=== PATIENT | male | born 1950 | race Caucasian/White ===

== ENCOUNTER 2018-01-17 10:06 | Emergency (ER) | payer OTHER, MEDICARE ==
--- OUTSIDE RECORDS SUMMARY | 2018-01-17 10:08 | XMS REPORT | Clinical Summary ---
:1950 Author Organization [facility] Address [address] [place] [address] Care Team Providers Name Role Phone AcostaWarren vargas Primary Care Provider Allergies Active Allergy Reactions Severity Noted Date Comments Temazepam 07/25/2017 Current Medications Prescription Sig. Disp. Refills Start Date End Date Status FOLIC Take 1 tablet by Active ACID/MULTIVIT-MIN/LUTEIN mouth daily. (CENTRUM SILVER ORAL) KRILL/OM3/DHA/EPA/OM6/LIP Take 500 mg by Active /ASTX (KRILL OIL, OMEGA 3 mouth daily. AND 6, ORAL) FENOFIBRATE ORAL Take 135 mg by Active mouth daily. glipiZIDE (GLUCOTROL) 5 Take 5 mg by mouth Active MG tablet 2 (two) times a day before meals. empagliflozin (JARDIANCE) Take 25 mg by mouth Active 25 mg tablet daily. NON FORMULARY Take 1 capsule by Active mouth daily. L-Theanine metFORMIN (GLUCOPHAGE) Take 1,000 mg by Active 1,000 mg tablet mouth 2 (two) times a day with meals. nadolol (CORGARD) 40 MG Take 40 mg by mouth Active tablet daily. tamsulosin (FLOMAX) 0.4 Take 0.4 mg by Active mg capsule,extended mouth daily. 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 On anticoagulant therapy 07/26/2017 Epigastric pain 07/26/2017 Splenomegaly 07/26/2017 Thrombocytopenia 07/26/2017 Enteritis 07/25/2017 Encounters Date Type Specialty Care Team Description 09/05/2017 Procedure Pass Gastroenterology 07/25/2017 - Emergency General Internal Medicine Rivenes, Enteritis ( Primary Dx); 07/26/2017 Marquez Ibanez MD Mesenteric thrombosis Barbara Machado MD after 01/16/2017 Social History Tobacco Use Types Packs/Day Years Used Date Former Smoker Cigarettes Quit: 07/25/2009 Comments: Quit 8 years ago Alcohol Use Drinks/Week oz/Week Comments No Sex Assigned at Date Recorded Not on file Last Filed Vital Signs Vital Sign Reading Time Taken Blood Pressure 148/70 07/26/2017 8:23 PM CDT Pulse 74 07/26/2017 8:22 PM CDT Temperature 36.8 C (98.2 F) 07/26/2017 8:22 PM CDT Respiratory Rate 18 07/26/2017 8:22 PM CDT Oxygen Saturation 96% 07/26/2017 8:22 PM CDT Inhaled Oxygen Concentration - - Weight - - Height 188 cm (6' 2") 07/25/2017 11:30 PM CDT Body Mass Index - - Plan of Treatment Date Type Specialty Care Team Description 02/06/2018 Surgery Gastroenterology Gama Orozco MD EGD [id number] [address] 02/06/2018 Procedure Pass Gastroenterology 02/06/2018 Hospital [place] [address] [facility] [address] [place] [address] Health Maintenance Due Date Last Done Comments COLONOSCOPY 2002 SHINGRIX VACCINE (#1) 2002 ZOSTER VACCINE 2012 PNEUMOCOCCAL POLYSACCHARIDE VACCINE AGE 65 AND OVER 2017 PNEUMOCOCCAL-13 2017 INFLUENZA VACCINE 04/25/2018 Results POC glucose (07/26/2017 9:13 PM)Only the most recent of4 resultswithin the time period is included. Component Value Ref Range POC glucose 128 (H) 65 - 99 mg/dL Comment: Meter ID: [id number] Drug Abuse Resistance Education Officer: Tan Elena Specimen Performing Laboratory [facility] DEPARTMENT OF PATHOLOGY AND GENOMIC MEDICINE [address] [place] [address] Prothrombin mutation, factor II, by PCR (07/26/2017 6:00 PM) Component Value Ref Range Prothrombin gene mutation Normal Normal Prothrombin gene mutation See link below for PDF Lab ReportComment: Specimen Performing Laboratory Blood [facility] DEPARTMENT OF PATHOLOGY [address] [address] Factor V leiden by PCR (07/26/2017 6:00 PM) Component Value Ref Range Factor V Leiden Normal Factor V Leiden See link below for PDF Lab ReportComment: Specimen Performing Laboratory Blood [facility] PATHOLOGY [address] [address] KAYLYNN 2 mutation detection by PCR (07/26/2017 5:00 PM) Component Value Ref Range KAYLYNN-2 mutation ID Not-Detected Not-Detected KAYLYNN-2 amplification Not-Detected Not-Detected KAYLYNN 2 mutation detection, PCR See link below for PDF Lab ReportComment: Specimen Performing Laboratory Blood [facility] PATHOLOGY [address] [address] Free and total protein S (07/26/2017 5:00 PM) Component Value Ref Range Protein S Ag, free 74 62 - 160 % Protein S Ag, total 94 71 - 150 % Specimen Performing Laboratory Blood [facility] OF PATHOLOGY [address] [address] Alpha fetoprotein (07/26/2017 5:00 PM) Component Value Ref Range Alpha fetoprotein 2.2 0.0 - 8.3 ng/mL Comment: The Padma 8000 AFP immunoassay was used. Results obtained with different assay methods or kits should not be used interchangeably and may be different. Specimen Performing Laboratory Serum [facility] PATHOLOGY [address] [address] Beta-2 glycoprotein 1 Abs, IgG & IgM (07/26/2017 5:00 PM) Component Value Ref Range Beta-2 glycoprotein 1 antibody, IgG 0 0 - 20 Beta-2 glycoprotein 1 antibody, IgM 1 0 - 20 Comment: INTERPRETIVE INFORMATION: [id number] I, IgG and IgM Antibody The persistent presence of IgG and/or IgM beta 2 glycoprotein I (B2GPI) antibodies (greater than 99th percentile) is a laboratory criterion for the diagnosis of antiphospholipid syndrome (APS). Persistence is defined as moderate or high levels of IgG and/or IgM B2GPI antibodies detected in two or more specimens drawn at least 12 weeks apart (J Throm Haemost. 2006;4:295-306). B2GPI results greater than 20 SGU (IgG) and/or SMU (IgM) are considered positive based on the cutoff values established for this test. International reference materials and consensus units for anti-B2GPI antibodies have not been established (Clin Jessica Acta. 2012;413(1-2):358-60; Arthritis Rheum. 2012;64(1):1-10.). Strong clinical correlation is recommended for a diagnosis of APS. Low positive IgG and IgM B2GPI antibody levels should be interpreted in light of APS-specific clinical manifestations and/or other criteria phospholipid antibody tests. Performed by [facility], [address] [place] [address] [email or web address], Edilson Winslow MD - Lab. Director Specimen Performing Laboratory [facility] [address] [place] [address] Functional protein S (07/26/2017 5:00 PM) Component Value Ref Range Functional protein S 55 (L) 74 - 160 % Comment: Functional Protein S performed.If result is decreased Total and Free Protein S Antigen will be performed. Specimen Performing Laboratory Blood [facility] DEPARTMENT OF PATHOLOGY AND GENOMIC MEDICINE [address] [place] [address] Functional protein C (07/26/2017 5:00 PM) Component Value Ref Range Functional protein C 61 (L) 70 - 165 % Specimen Performing Laboratory Blood [facility] DEPARTMENT OF PATHOLOGY AND GENOMIC MEDICINE [address] [place] [address] Lupus anticoagulant panel (07/26/2017 5:00 PM) Component Value Ref Range Prothrombin time 15.8 (H) 12.0 - 15.0 sec INR 1.2 Comment: The International Normalized Ratio (INR) is a therapeutic monitoring tool for patients who are stable on oral anticoagulant therapy. An INR of 2.0-3.0 is suggested for deep vein thrombosis/pulmonary embolism. PTT 38.3 (H) 23.0 - 36.0 sec Comment: PTT therapeutic range for unfractionated heparin is 61.0-112.0 seconds which corresponds to Anti-Xa 0.3-0.7 U/ml. PTT lupus anticoagulant 36.8 27.0 - 38.0 sec Comment: Lupus anticoagulant (LA) panel consists of PT, PTT, PTT-LA, and DRVVT. If the PTT-LA is above the normal range, the hexagonal phospholipid will be performed. If the DRVVT is above the normal range, the DRVVC confirmatory test will be performed. A normal result for both the DRVVT and the PTT-LA means the patient is negative for lupus anticoagulant. The patient is considered positive for lupus anticoagulant if either the Ratio SCR/CONF or the hexagonal phospholipid is high (positive) on two occassions at least six weeks apart. Clinical confirmation is also required for diagnosis. DRVVT 30.7 29.0 - 46.0 sec Specimen Performing Laboratory Blood [facility] DEPARTMENT OF PATHOLOGY AND GENOMIC MEDICINE [id number] [place] [address] Cardiolipin antibodies (07/26/2017 5:00 PM) Component Value Ref Range Cardiolipin IgG 1 0 - 14 GPL Comment: Negative=<15 GPL Indeterminate=15-20 GPL Positive=>20 GPL Cardiolipin IgM 6 0 - 12 MPL Comment: Negative=<13 MPL Indeterminate=13-20 MPL Positive=>20 MPL Specimen Performing Laboratory Blood [facility] DEPARTMENT OF PATHOLOGY AND GENOMIC MEDICINE [address] [place] [address] Antithrombin III level (07/26/2017 5:00 PM) Component Value Ref Range Antithrombin III 64 (L) 80 - 130 % Comment: Low Protein S, Protein C Activity, and Antithrombin Activity consistent with ongoing thrombosis. Repeat in 1 - 2 months. Reviewed by Specimen Performing Laboratory Blood [facility] DEPARTMENT OF PATHOLOGY AND GENOMIC MEDICINE [address] [place] [address] Estimated GFR (07/26/2017 5:30 AM)Only the most recent of2 resultswithin the time period is included. Component Value Ref Range GFR Non Af Amer >90 mL/min/1.73 m2 GFR Af Amer >90 mL/min/1.73 m2 Comment: Chronic kidney disease: <60 mL/min/1.73m2 Kidney failure: <15 mL/min/1.73m2 The estimated GFR is calculated from the IDMS-traceable Modification of Diet in Renal Disease Equation. The accuracy of the calculation is poor when the creatinine is normal. Calculated values >90 mL/min/1.73m2 are not reported. This equation has not been validated in children (<18 years), women, the elderly (>70 years), or ethnic groups other than Caucasians and Americans. Specimen Performing Laboratory Plasma specimen [facility] DEPARTMENT OF PATHOLOGY AND [address] [place] [address] Troponin (07/26/2017 5:30 AM)Only the most recent of3 resultswithin the time period is included. Component Value Ref Range Troponin <0.30 0.00 - 0.30 ng/mL Comment: 0.11 - 1.49 ng/mlMay indicate increased risk of acute coronary syndrome. >=1.5 ng/mlConsistent with acute myocardial infarction. The diagnostic value of a single normal or non-diagnostic result is questionable.Serial samples at 2-6 hour intervals are required to rule out acute myocardial injury. Specimen Performing Laboratory Plasma specimen [facility] PATHOLOGY AND [address] [place] [address] CBC with platelet and differential (07/26/2017 5:30 AM)Only the most recent of2 resultswithin the time period is included. Component Value Ref Range WBC 3.9 (L) 4.5 - 11.0 k/uL RBC 4.35 (L) 4.40 - 6.00 m/uL HGB 14.1 14.0 - 18.0 g/dL HCT 40.6 (L) 41.0 - 51.0 % MCV 93.3 82.0 - 100.0 fL MCH 32.4 27.0 - 34.0 pg MCHC 34.7 31.0 - 37.0 g/dL RDW - SD 49.9 37.0 - 55.0 fL MPV 10.0 6.9 - 11.0 fL Platelet count 103 (L) 150 - 400 K/uL Nucleated RBC 0.00 /100 WBC Neutrophils 42.6 39.0 - 69.0 % Lymphocytes 40.3 25.0 - 45.0 % Monocytes 10.7 (H) 0.0 - 10.0 % Eosinophils 5.1 (H) 0.0 - 5.0 % Basophils 0.8 0.0 - 1.0 % Immature granulocytes 0.5 0.0 - 1.0 % Specimen Performing Laboratory Blood [facility] DEPARTMENT OF PATHOLOGY AND [address] [place] [address] Comprehensive metabolic panel (07/26/2017 5:30 AM)Only the most recent of2 resultswithin the time period is included. Component Value Ref Range Sodium 140 135 - 148 mEq/L Potassium 3.9 3.5 - 5.0 mEq/L Chloride 102 98 - 112 mEq/L CO2 27 24 - 31 mEq/L Anion gap 11 7 - 15 mEq/L Comment: Starting from December , anion gap calculation no longer incorporates potassium. Please note the change. BUN 13 8 - 23 mg/dL Creatinine 0.7 0.7 - 1.2 mg/dL Glucose 141 (H) 65 - 99 mg/dL Calcium 8.9 8.8 - 10.2 mg/dL Protein 6.5 6.3 - 8.3 g/dL Albumin 3.7 3.5 - 5.0 g/dL A/G ratio 1.3 0.7 - 3.8 Alkaline phosphatase 65 40 - 129 U/L AST 30 10 - 50 U/L ALT 29 5 - 50 U/L Total bilirubin 0.9 0.2 - 1.2 mg/dL Specimen Performing Laboratory Plasma specimen [facility] DEPARTMENT OF PATHOLOGY AND [address] [address] Phosphorus level (07/26/2017 1:13 AM) Component Value Ref Range Phosphorus 3.7 2.4 - 4.5 mg/dL Specimen Performing Laboratory Plasma specimen [facility] DEPARTMENT OF PATHOLOGY AND GENOMIC [address] [address] Magnesium level (07/26/2017 1:13 AM) Component Value Ref Range Magnesium 2.1 1.6 - 2.4 mg/dL Specimen Performing Laboratory Plasma specimen [facility] DEPARTMENT OF PATHOLOGY AND GENOMIC [address] [address] Ionized calcium (07/26/2017 1:13 AM) Component Value Ref Range pH 7.40 Ionized calcium 1.09 (L) 1.11 - 1.32 mmol/L Specimen Performing Laboratory Plasma specimen [facility] DEPARTMENT PATHOLOGY AND [facility] MEDICINE [address] [place] [address] Occult blood, stool (07/25/2017 7:46 PM) Component Value Ref Range Occult blood, stool Negative for occult blood. Comment: Specimen Information Specimen Source: Rectal Swab Specimen Site: Nonpreserved Specimen Performing Laboratory Rectal swab - Nonpreserved [facility] DEPARTMENT OF PATHOLOGY AND GENOMIC MEDICINE [address] [place] [address] Abdomen Pelvis W Contrast (07/25/2017 7:09 PM) Specimen Performing Laboratory [facility] [address] [facility] [place] [address] Narrative EXAMINATION:CT ABDOMEN PELVIS W CONTRAST CLINICAL HISTORY:generalized abdominal pain TECHNIQUE: Multiple axial images of the abdomen and pelvis were obtained following intravenous administration of iodinated contrast. Sagittal and coronal computerized reformatted images were also obtained. Scan was performed using radiation dose reduction techniques. COMPARISON:None FINDINGS: The liver cirrhotic. Parenchymal evaluation for tumor is significantly limited by single phase technique. Portal hypertensive changes include splenomegaly, paraesophageal/esophageal varices, and recanalized periumbilical vein. There is nonocclusive thrombosis of the SMV and main portal vein. Clot extends into the intrahepatic segments of the portal vein. There is hazy stranding noted in the small bowel mesentery. A short segment of moderate thickening is noted in the left mid abdomen (series 2 image 86). Colon demonstrates no significant mural thickening. Mesenteric arteries are patent. Diffuse diverticulosis in the colon without evidence of diverticulitis. Appendix is noninflamed. There is minimal ascites. No fluid collection. Prostate mildly enlarged. There are cysts in both kidneys. No hydronephrosis. Severe vascular calcifications. Infrarenal aorta is minimally ectatic. Status post cholecystectomy. No biliary dilatation. Pancreas is atrophic. IMPRESSION: 1.Liver cirrhosis and portal hypertension. 2.Nonocclusive but extensive SMV and portal vein thrombosis. 3.Mesenteric infiltration and short segment of small bowel thickening are presumably sequelae of mesenteric venous thrombosis. Other causes of enteritis , such as infectious, is not excluded but less likely. 4.Severe vascular disease. Grossly patent mesenteric arteries. [facility]-[id number] Procedure Note Interface, Radiology Results Incoming - 07/25/2017 7:21 PM CDT EXAMINATION: CT ABDOMEN PELVIS W CONTRAST CLINICAL HISTORY: generalized abdominal pain TECHNIQUE: Multiple axial images of the abdomen and pelvis were obtained following intravenous administration of iodinated contrast. Sagittal and coronal computerized reformatted images were also obtained. Scan was performed using radiation dose reduction techniques. COMPARISON: None FINDINGS: The liver cirrhotic. Parenchymal evaluation for tumor is significantly limited by single phase technique. Portal hypertensive changes include splenomegaly, paraesophageal/esophageal varices, and recanalized periumbilical vein. There is nonocclusive thrombosis of the SMV and main portal vein. Clot extends into the intrahepatic segments of the portal vein. There is hazy stranding noted in the small bowel mesentery. A short segment of moderate thickening is noted in the left mid abdomen (series 2 image 86). Colon demonstrates no significant mural thickening. Mesenteric arteries are patent. Diffuse diverticulosis in the colon without evidence of diverticulitis. Appendix is noninflamed. There is minimal ascites. No fluid collection. Prostate mildly enlarged. There are cysts in both kidneys. No hydronephrosis. Severe vascular calcifications. Infrarenal aorta is minimally ectatic. Status post cholecystectomy. No biliary dilatation. Pancreas is atrophic. IMPRESSION: 1. Liver cirrhosis and portal hypertension. 2. Nonocclusive but extensive SMV and portal vein thrombosis. 3. Mesenteric infiltration and short segment of small bowel thickening are presumably sequelae of mesenteric venous thrombosis. Other causes of enteritis, such as infectious, is not excluded but less likely. 4. Severe vascular disease. Grossly patent mesenteric arteries. [facility]-[id number] XR Chest 2 Vw (07/25/2017 6:23 PM) [facility]imen [facility] [address] [place] [address] Narrative Examination:XR CHEST 2 VW Clinical History: right sided posterior chest pain Comparison: None. Technique: Frontal and lateral views of the chest Impression: Lungs appear slightly hyperinflated. No focal consolidation or pleural effusion. Heart size and pulmonary vascularity grossly normal. Numerous old fracture deformities are seen in bilateral ribs and clavicles. [facility]-[id number] Procedure Note Interface, Radiology Results Incoming - 07/25/2017 6:27 PM CDT Examination: XR CHEST 2 VW Clinical History: right sided posterior chest pain Comparison: None. Technique: Frontal and lateral views of the chest Impression: Lungs appear slightly hyperinflated. No focal consolidation or pleural effusion. Heart size and pulmonary vascularity grossly normal. Numerous old fracture deformities are seen in bilateral ribs and clavicles. [facility]-[id number] Urinalysis screen and microscopy, with reflex to culture (07/25/2017 5:55 PM) Component Value Ref Range Specimen site Clean catch Color, UA Yellow Appearance, UA Clear Specific gravity, UA 1.036 (H) 1.001 - 1.030 pH, UA 6.0 5.0 - 9.0 Protein, UA Negative Negative Glucose, UA 3+ (A) Negative Ketones, UA Trace (A) Negative Bilirubin, UA Negative Negative Blood, UA Moderate (A) Negative Nitrite, UA Negative Negative Urobilinogen, UA 2.0 (A) <2.0 E.U./dL Leukocyte esterase, UA Negative Negative WBC, UA 1 0 - 1 /HPF RBC, UA 6 (H) 0 - 1 /HPF Bacteria, UA None seen None seen Yeast, UA None seen Yeast with pseudohyphae, UA None seen Specimen Performing Laboratory Urine [facility] DEPARTMENT OF PATHOLOGY AND [address] [address] Urine culture (07/25/2017 5:55 PM) Component Value Ref Range Urine culture SEE COMMENTComment: Bacteriuria screen negative. Specimen Performing Laboratory [facility] PATHOLOGY [place] [id number] ECG 12 lead (07/25/2017 5:47 PM) Component Value Ref Range Ventricular rate 69 Atrial rate 69 ME interval 176 QRSD interval 142 QT interval 460 QTC interval 492 P axis 1 67 QRS axis 1 262 T wave axis 53 EKG impression Normal sinus rhythm-Right bundle branch block-Abnormal ECG-In automated comparison with ECG of 25-JUL-2017 17:47,-No significant change was found- Specimen Performing Laboratory [facility] [address] [place] [address] Partial thromboplastin time, activated (07/25/2017 5:42 PM) Component Value Ref Range PTT 27.5 23.0 - 36.0 sec Comment: PTT therapeutic range for unfractionated heparin is 61.0-112.0 seconds which corresponds to Anti-Xa 0.3-0.7 U/ml. Specimen Performing Laboratory Blood [facility] DEPARTMENT OF PATHOLOGY AND [facility] MEDICINE [address] [place] [address] Prothrombin time with INR (07/25/2017 5:42 PM) Component Value Ref Range Prothrombin time 15.4 (H) 12.0 - 15.0 sec INR 1.2 Comment: The International Normalized Ratio (INR) is a therapeutic monitoring tool for patients who are stable on oral anticoagulant therapy. An INR of 2.0-3.0 is suggested for deep vein thrombosis/pulmonary embolism. Specimen Performing Laboratory Blood [facility] DEPARTMENT OF PATHOLOGY AND [address] [address] B natriuretic peptide (07/25/2017 5:42 PM) Component Value Ref Range BNP 38 0 - 100 pg/mL Specimen Performing Laboratory Blood [facility] DEPARTMENT OF PATHOLOGY AND GENOMIC MEDICINE [address] [place] [address] Lipase level (07/25/2017 5:42 PM) Component Value Ref Range Lipase 25 13 - 60 U/L Specimen Performing Laboratory Plasma specimen [facility] DEPARTMENT OF PATHOLOGY AND GENOMIC MEDICINE [address] [place] [address] Creatine kinase, total (CPK) (07/25/2017 5:42 PM) Component Value Ref Range Creatine kinase 52 39 - 308 U/L Specimen Performing Laboratory Plasma specimen [facility] DEPARTMENT OF PATHOLOGY AND GENOMIC MEDICINE [address] [place] [address] Amylase level (07/25/2017 5:42 PM) Component Value Ref Range Amylase 19 13 - 73 U/L Specimen Performing Laboratory Plasma specimen [facility] DEPARTMENT OF PATHOLOGY AND GENOMIC MEDICINE [address] [place] [address] after 01/16/2017 Insurance Payer Benefit Plan / Group Subscriber ID Type Phone Address [facility] x[facility]xxx Exchange Home: [phone] [place] [phone]
--- OUTSIDE RECORDS SUMMARY | 2018-01-17 10:09 | XMS REPORT | Clinical Summary ---
:1950 Author Organization [facility] Address [address] [place] [address] Phone Care Team Providers Name Role Phone Unavailable Primary Care Provider Unavailable Allergies Active Allergy Reactions Severity Noted Date Comments Temazepam Other (See Comments) High 07/27/2017 Severe agitation. Current Medications Prescription Sig. Disp. Refills Start End Date Status Date losartan (COZAAR) Take 50 mg by Active 50 MG tablet mouth daily. metFORMIN Take 1,000 mg by Active (GLUCOPHAGE) 1000 mouth 2 (two) MG tablet times daily with breakfast and dinner. glipiZIDE Take 5 mg by mouth Active (GLUCOTROL) 5 MG 2 (two) times tablet daily before meals. fenofibric acid, Take 135 mg by Active choline, 135 mg mouth daily. capsule tamsulosin Take 0.4 mg by Active (FLOMAX) 0.4 mg mouth daily. Cp24 24 hr capsule nadolol (CORGARD) Take 40 mg by Active 40 MG tablet mouth daily. enoxaparin Inject 0.8 mLs 20 Syringe 0 Active (LOVENOX) 120 (120 mg total) 7 mg/0.8 mL Syrg subcutaneously every 12 (twelve) hours. apixaban (ELIQUIS) Take 5 mg by mouth Active 5 mg Tab tablet 2 (two) times daily. krill oil 500 mg Take by mouth. Active Cap empagliflozin Take 25 mg by Active (JARDIANCE) 25 mg mouth daily. tablet Missing or L- Theanine 100mg Active Non-Formulary . Medication ranitidine Take 150 mg by Active (ZANTAC) 150 MG mouth 2 (two) tablet times daily. TURMERIC, BULK, 1,500 mg by Active MISC Miscellaneous route. Missing or Take 1 tablet by 07/29/20 Discontinued Non-Formulary mouth daily 17 Medication Centrum Silver 50 . Missing or Take 500 mg by 07/29/20 Discontinued Non-Formulary mouth daily Krill 17 Medication oil . Missing or Take 25 mg by 07/29/20 Discontinued Non-Formulary mouth daily 17 Medication Jardiance . Missing or Take 1 capsule by 07/29/20 Discontinued Non-Formulary mouth daily L. 17 Medication Theanine . Hospital, Clinic, or Other Ordered Dose Route Frequency Start Date End Date Status Facility Administered Medication iopamidol (ISOVUE-370) 76 % 100 mL IV ONCE PRN 12/05/2017 12/05/2017 Ended injection 100 mL Active Problems Problem Noted Date Other cirrhosis of liver 11/06/2017 Last Assessment & Plan: Cirrhosis diagnosed based on imaging, labs and clinical complications. Most likely secondary to fatty liver with metabolic syndrome. A comprehensive work up is planned to additional etiologies. Cirrhosis education was completed with literature provided. Na MELD 8 , 07/2017. Early for liver transplant evaluation. Of note, the status of the portal and splenic vein thrombosis will be critical since these vessels are required for liver transplant. Screening for malignant neoplasm 11/06/2017 Last Assessment & Plan: Cirrhosis, regardless of etiology, is a risk factor for development of hepatocellular carcinoma. The annual incidence of HCC varies from 1.5-7%. Thus, we recommend surveillance for HCC be performed usin g contrast MRI or CT imaging and alphafetoprotein every 6 months. Immunity status testing 11/06/2017 Last Assessment & Plan: Serological tests will be completed to determine the presence of immunity to hepatitis A and B. If the patient does not have adequate immunity, we would recommend administration of appropriate vaccinati on as per CDC guidelines by the primary care provider. Portal hypertension (HCC) 11/06/2017 Last Assessment & Plan: Portal hypertension evidenced by varices and hypersplenism. Secondary esophageal varices without bleeding (HCC) 11/06/2017 Metabolic syndrome 11/06/2017 Last Assessment & Plan: The patient meets criteria for metabolic syndrome with DM, HTN, suspected HLD and obesity. Control of the risk factors is critical to improve the hepatic steatosis that likely has played a role in the development of cirrhosis. Exercise and diet modification with literature provided. 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 Subsequent hypercoaguable work up done with Hematology and anticoagulation currently underway. We will need clarification of the status of patency of these vessels with imaging. MRI with and without gadolinium recommended at this time for clarification. Secondary esophageal varices with bleeding 11/06/2017 Last Assessment & Plan: Initial decompensating event when he presented with acute UGIB found to be secondary to esophageal varices requiring EVL. Last EGD 08/2017 also required EVL. Follow up due at this time with local GI physician, Dr Gama Orozco. Enteritis 07/27/2017 Gastroenteritis 07/27/2017 Encounters Date Type Specialty Care Team Description 12/12/2017 Office Visit Hepatology Benedict Gutierres Other cirrhosis of MD Geov[place] liver (HCC) (Primary Dx);Portal hypertension (HCC);Portal vein thrombosis;Metabolic syndrome 12/05/2017 Hospital Encounter Radiology Benedict Gutierres Canceled (Patient) MD Geovanna 12/05/2017 Procedure visit Radiology Benedict Gutierres PVT (portal vein MD Geovanna thrombosis) 12/04/2017 Outside Orders Benedict Gutierres MD 11/14/2017 Abstract HepatAnalia Robles RN 11/08/2017 Abstract HepatAnalia Robles RN 11/07/2017 Abstract HepatAnalia Robles RN 11/06/2017 Office Visit Benedict Clifford MD liver (Primary Dx);Screening for malignant neoplasm;Immunity status testing;Portal hypertension (HCC);Secondary esophageal varices without bleeding (HCC);Metabolic syndrome;PVT (portal vein thrombosis);Secondar y esophageal varices with bleeding 10/12/2017 Telephone Hepatology Casie Torre Appointment 08/23/2017 Telephone Hepatology Casie Torre Appointment 07/26/2017 - Hospital Encounter General Internal Korey Taylor, 07/29/2017 Medicine MD Leonard, Anderson Hansen MD 07/26/2017 Orders Only Mahad Rivera, ESTEBAN after 01/16/2017 Immunizations Name Dates Previously Given Next Due Hepatitis A 11/26/2017 Hepatitis B 11/26/2017 Influenza Three-TIV PF 5+ YR 07/27/2017 Pneumococcal Polysaccharide (Pneumovax) 07/27/2017 Family History Medical History Relation Name Comments Diabetes Father Heart disease Father Diabetes Mother Relation Name Status Comments Father Mother Social History Tobacco Use Types Packs/Day Years Used Date Former Smoker Quit: 11/06/2011 Smokeless Tobacco: Current User Alcohol Use Drinks/Week oz/Week Comments No Sex Assigned at Date Recorded Not on file Last Filed Vital Signs Vital Sign Reading Time Taken Blood Pressure 115/67 11/06/2017 10:49 AM [employer] Pulse 67 11/06/2017 10:49 AM [employer] Temperature 36.6 C (97.8 F) 11/06/2017 10:49 AM [employer] Respiratory Rate 20 11/06/2017 10:49 AM [employer] Oxygen Saturation 97% 11/06/2017 10:49 AM [employer] Inhaled Oxygen Concentration - - Weight 110.5 kg (243 lb 9.6 oz) 12/12/2017 2:08 PM CDT Height 188 cm (6' 2") 11/06/2017 10:49 AM [employer] Body Mass Index 31.28 12/12/2017 2:08 PM CDT Plan of Treatment Date Type Specialty Care Team Description 06/15/2018 Office Visit Hepatology Benedict Gutierres MD [address] [facility] [address] [place] [address] Resource, [facility] Health Maintenance Due Date Last Done Comments INFLUENZA VACCINE 06/25/2018 07/27/[address] abdomen with/without contrast (12/05/2017 10:35 AM) Specimen Performing Laboratory [facility] Narrative FINAL REPORT HISTORY : cirrhosis with PVT/SMV partial thrombosis on blood thinners,need triple phase liver protocol Technique: Initially, noncontrast images of the abdomen were obtained. This was followed by multiple axial images of the abdomen with the administration of IV contrast only from the lung bases to the periumbilical region. Delayed images were also obtained. This exam was performed according to our departmental dose optimization program which includes automated exposure control, adjustment of the mA and/or kV according to patient size and/or use of iterative reconstructive technique. COMPARISON : Outside CT dated 07/25/2017 COMMENT : There is some bibasilar linear subsegmental atelectasis versus scarring. The visualized adrenal glands, pancreas, stomach and duodenum are within normal limits. There is hepatic cirrhosis. No suspicious enhancing hepatic lesions are seen. There is atherosclerotic vascular disease. There are several bilateral renal cysts and too small to characterize renal hypodensities but which likely represent cysts. The largest cyst is seen arising from the left renal upper pole measuring up to 3.6 cm. There is splenomegaly. The patient is status post cholecystectomy. There is no abdominal or retroperitoneal lymphadenopathy. Multilevel degenerative disc changes of the visualized thoracolumbar spine are seen. There is no free fluid or free air in the abdomen. No findings of any bowel obstruction. The visualized portions of the small bowel are within normal limits. There is diverticulosis of the visualized portions of the large bowel. There is no splenic or superior mesenteric venous thrombosis. There is a small amount of partially occlusive thrombus in the main portal vein. Comparison with the prior examination is limited due to the phase of image acquisition on the prior CT scan. However, grossly, the thrombus appears diminished as compared to the prior exam. The thrombus appears to extend into the left portal vein. Impression: 1. Hepatic cirrhosis. No suspicious enhancing hepatic lesions are seen. 2. Small amount of partially occlusive thrombus in the main portal vein, apparently diminished as compared to the prior exam. Please see above. 3. Splenomegaly with findings of portal hypertension. 4. Colonic diverticulosis. Signed: Nina Marie MD Report Verified Date/Time:12/05/2017 10:58:51 Reading Location: [facility] Diagnostic Imaging Reading Room - [place] [id number] Procedure Note Interface, External Ris In - 12/05/2017 11:01 AM CDT FINAL REPORT HISTORY : cirrhosis with PVT/SMV partial thrombosis on blood thinners, need triple phase liver protocol Technique: Initially, noncontrast images of the abdomen were obtained. This was followed by multiple axial images of the abdomen with the administration of IV contrast only from the lung bases to the periumbilical region. Delayed images were also obtained. This exam was performed according to our departmental dose optimization program which includes automated exposure control, adjustment of the mA and/or kV according to patient size and/or use of iterative reconstructive technique. COMPARISON : Outside CT dated 07/25/2017 COMMENT : There is some bibasilar linear subsegmental atelectasis versus scarring. The visualized adrenal glands, pancreas, stomach and duodenum are within normal limits. There is hepatic cirrhosis. No suspicious enhancing hepatic lesions are seen. There is atherosclerotic vascular disease. There are several bilateral renal cysts and too small to characterize renal hypodensities but which likely represent cysts. The largest cyst is seen arising from the left renal upper pole measuring up to 3.6 cm. There is splenomegaly. The patient is status post cholecystectomy. There is no abdominal or retroperitoneal lymphadenopathy. Multilevel degenerative disc changes of the visualized thoracolumbar spine are seen. There is no free fluid or free air in the abdomen. No findings of any bowel obstruction. The visualized portions of the small bowel are within normal limits. There is diverticulosis of the visualized portions of the large bowel. There is no splenic or superior mesenteric venous thrombosis. There is a small amount of partially occlusive thrombus in the main portal vein. Comparison with the prior examination is limited due to the phase of image acquisition on the prior CT scan. However, grossly, the thrombus appears diminished as compared to the prior exam. The thrombus appears to extend into the left portal vein. Impression: 1. Hepatic cirrhosis. No suspicious enhancing hepatic lesions are seen. 2. Small amount of partially occlusive thrombus in the main portal vein, apparently diminished as compared to the prior exam. Please see above. 3. Splenomegaly with findings of portal hypertension. 4. Colonic diverticulosis. Signed: Nina Marie MD Report Verified Date/Time: 12/05/2017 10:58:51 Reading Location: [facility] Diagnostic Imaging Reading Room - [place] [address] -Creatinine (12/05/2017 10:20 AM) Component Value Ref Range POC-Creatinine 0.7Comment: TESTED AT [facility]-[address] 0.6 - 1.3 mg/dL [facility] [address] POC-EGFR 113 mL/min/1.73M2 Specimen Performing Laboratory Blood [address] [address] Hepatitis A antibody, IgG (11/06/2017 1:03 PM) Component Value Ref Range Hep A IgG Nonreactive Nonreactive Specimen Performing Laboratory Blood [address] [address] Mitochondrial Antibodies, M2 (11/06/2017 1:03 PM) Component Value Ref Range Mitochondria M2 Ab <20.0 See Note: U Comment: Reference Range: NEGATIVE:< OR=20.0 EQUIVOCAL: 20.1-24.9 POSITIVE:> OR=25.0 Specimen Performing Laboratory Blood [facility] [address] [place] [address] Narrative Performing Lab [facility] [address] [place] [address] Geovanna Rey MD, PhD Iron, TIBC, % sat. (without ferritin) (11/06/2017 1:03 PM) Component Value Ref Range Iron 66 40 - 160 ug/dL TIBC 300 250 - 450 ug/dL Iron % Saturation 22 20 - 55 % Specimen Performing Laboratory Blood [facility] [address] [place] [address] CBC with platelet count + automated diff (11/06/2017 1:03 PM)Only the most recent of4 resultswithin the time period is included. Component Value Ref Range WBC 4.5 3.5 - 10.5 K/L RBC 4.54 (L) 4.63 - 6.08 M/L Hemoglobin 14.9 13.7 - 17.5 GM/DL Hematocrit 44.0 40.1 - 51.0 % MCV 96.9 (H) 79.0 - 92.2 fL MCH 32.8 (H) 25.7 - 32.2 pg MCHC 33.9 32.3 - 36.5 GM/DL RDW 14.0 11.6 - 14.4 % Platelets 115 (L) 150 - 450 K/CU MM MPV 10.8 9.4 - 12.4 fL nRBC 0 0 - 0 /100 WBC % Neutros 52 % % Lymphs 32 % % Monos 10 % % Eos 4 % % Baso 1 % # Neutros 2.35 1.78 - 5.38 K/L # Lymphs 1.45 1.32 - 3.57 K/L # Monos 0.46 0.30 - 0.82 K/L # Eos 0.20 0.04 - 0.54 K/L # Baso 0.03 0.01 - 0.08 K/L Immature Granulocytes-Relative 1 0 - 1 % Specimen Performing Laboratory Blood [address] [address] Hepatitis C antibody (11/06/2017 1:03 PM) Component Value Ref Range Hepatitis C Ab Nonreactive Nonreactive Specimen Performing Laboratory Blood [address] [address] Actin (Smooth Muscle) Antibody, IgG (11/06/2017 1:03 PM) Component Value Ref Range Anti-Smooth Muscle Ab <20 See Note: U Comment: Reference Range: <20 NEGATIVE > OR=20 POSITIVE Antibodies recognizing actin are the main component of smooth muscle antibodies associated with autoimmune liver disease. Actin antibodies are found in approximately 75% of patients with autoimmune hepatitis (AIH) type 1, approximately 65% of patients with autoimmune cholangitis, approximately 30% of patients with primary biliary cirrhosis, and approximately 2% of healthy people. High values are closely correlated with AIH type 1. Specimen Performing Laboratory Blood [facility] [address] [address] Narrative Performing Lab [facility] [address] [address] Geovanna Rey MD, PhD [id number] (11/06/2017 1:03 PM) Component Value Ref Range A-1 Antitrypsin 136.30Comment: Specimen slightly hemolyzed 90.00 - 200.00 mg/ dL Specimen Performing Laboratory Blood [address] [address] ROBERT Titer & Pattern (11/06/2017 1:03 PM) Component Value Ref Range ROBERT Titer 1:160 ROBERT Pattern Homogeneous Specimen Performing Laboratory Blood [address] [address] Ceruloplasmin (11/06/2017 1:03 PM) Component Value Ref Range Ceruloplasmin 25 18 - 36 mg/dL Comment: Adults:Males: 18-36 mg/dL Females: 18-53 mg/dL Pediatrics:Males (mg/dL)Females (mg/dL) 0-30 Days 8-25 3-28 31 Days-11 Month [id number] 1-3 [id number] 4-6 [id number] 7-9 [id number] 10-12 [id number] 13-15 [id number] 16-18 [id number] The pediatric ranges are derived from the following criteria: Enrique SJ, Opal KEE, Fadia J et al Pediatric reference ranges for Hlzx-1-Dkpftlapsavmz and ceruloplasmin. Clin. Chem 1997; 43:S1999 Pediatric Reference Ranges, 2nd., [place] Enriqueet al. editors. [employer], [place], [place] 1997. Specimen Performing Laboratory Blood [facility] [address] [place] [address] Narrative Performing Lab *[facility], [address] [place] [id number] Geovanna Rey MD, PhD Alpha fetoprotein (AFP), tumor marker (11/06/2017 1:03 PM) Component Value Ref Range Alpha-Fetoprotein <2.0 <10.0 ng/mL Specimen Performing Laboratory Blood [address] [address] Hepatitis B core antibody, total (11/06/2017 1:03 PM) Component Value Ref Range Hep B Core Total Ab Nonreactive Nonreactive Specimen Performing Laboratory Blood [address] [address] Hepatitis B surface antibody (11/06/2017 1:03 PM) Component Value Ref Range Hep B S Ab <8.0 <8.0 mIU/mL Specimen Performing Laboratory Blood [address] [address] Hepatitis B surface antigen (11/06/2017 1:03 PM) Component Value Ref Range hepatitis B Surface Ag Nonreactive Nonreactive Specimen Performing Laboratory Blood [address] [address] Pro-time/INR (11/06/2017 1:03 PM) Component Value Ref Range Protime 16.7 (H) 11.7 - 14.7 seconds INR 1.4 <=5.9 Specimen Performing Laboratory Blood [address] [address] Narrative RECOMMENDED COUMADIN/WARFARIN INR THERAPY RANGES STANDARD DOSE: 2.0 - 3.0 Includes: PROPHYLAXIS for venous thrombosis, systemic embolization; TREATMENT for venous thrombosis and/or pulmonary embolus. HIGH RISK: Target INR is 2.5-3.5 for patients with mechanical heart valves. CBC with platelet count + automated diff (11/06/2017 1:03 PM)Only the most recent of4 resultswithin the time period is included. Specimen Performing Laboratory Blood [facility] Narrative The following orders were created for panel order CBC with platelet count + automated diff. Procedure Abnormality Status --------- ------ CBC with platelet count ...[[id number]]AbnormalFinal result Please view results for these tests on the individual orders. Anti-Nuclear Antibody (ROBERT) (11/06/2017 1:03 PM) Component Value Ref Range ROBERT Positive (A) Negative Specimen Performing Laboratory [address] [address] Ferritin (11/06/2017 1:03 PM) Component Value Ref Range Ferritin 38 5 - 275 ng/mL Specimen Performing Laboratory [address] [address] Bilirubin, direct (11/06/2017 1:03 PM) Component Value Ref Range Bilirubin, Direct 0.4Comment: Specimen slightly hemolyzed 0.1 - 0.5 mg/dL Specimen Performing Laboratory Blood [address] [address] Comprehensive Metabolic Panel (11/06/2017 1:03 PM)Only the most recent of2 resultswithin the time period is included. Component Value Ref Range Protein, Total 7.2Comment: Specimen slightly hemolyzed 6.0 - 8.3 gm/dL Albumin 3.6Comment: Specimen slightly hemolyzed 3.5 - 5.0 g/dL Alkaline Phosphatase 108 40 - 150 U/L Total Bilirubin 1.2Comment: Specimen slightly hemolyzed 0.2 - 1.2 mg/dL Sodium 139 136 - 145 meq/L Potassium 4.1Comment: Specimen slightly hemolyzed 3.5 - 5.1 meq/L Chloride 104 98 - 107 meq/L CO2 23 22 - 29 meq/L BUN 13 7 - 21 mg/dL Creatinine 0.71Comment: Specimen slightly hemolyzed 0.57 - 1.25 mg/dL Glucose 115 (H) 70 - 105 mg/dL Calcium 9.0 8.4 - 10.2 mg/dL AST 51 (H)Comment: Specimen slightly hemolyzed 5 - 34 U/L ALT 53Comment: Specimen slightly hemolyzed 6 - 55 U/L EGFR 112Comment: ESTIMATED GFR IS NOT ACCURATE mL/min/1.73 sq m CREATININE CLEARANCE IN PREDICTING GLOMERULAR FILTRATION RATE. ESTIMATED GFR IS NOT APPLICABLE FOR DIALYSIS PATIENTS. Specimen Performing Laboratory Blood [address] [address] POC-Glucose meter (07/29/2017 2:55 PM)Only the most recent of5 resultswithin the time period is included. Component Value Ref Range POC-Glucose Meter 223 (H)Comment: TESTED AT [facility] [address] [place] [address] [address] 70 - 110 mg/dL [place] [address] Specimen Performing Laboratory Blood [address] [address] D-dimer (07/29/2017 5:21 AM) Component Value Ref Range D-Dimer, Quant 2.32 (H) <0.50 MG/L FEU Specimen Performing Laboratory Blood - Arm, Right [facility] [address] [place] [address] Narrative REGARDING D-DIMER RESULTS: The 98% NPV (Negative Predictive Value) for DVT/PE exclusion is 0.50 mg/L FEU as suggested by the mechanical lead and as approved by the FDA. Magnesium (07/28/2017 1:56 PM)Only the most recent of2 resultswithin the time period is included. Component Value Ref Range Magnesium 2.4 1.5 - 3.0 mg/dL Specimen Performing Laboratory Blood [facility] [address] [place], [place] [address] Basic Metabolic Panel (07/28/2017 1:56 PM) Component Value Ref Range Sodium 134 (L) 135 - 148 meq/L Potassium 4.1 3.6 - 5.5 meq/L Chloride 103 98 - 106 meq/L CO2 21 20 - 29 meq/L BUN 12 10 - 26 mg/dL Creatinine 0.80 0.50 - 1.20 mg/dL Glucose 293 (H) 70 - 110 mg/dL Calcium 9.1 8.5 - 10.5 mg/dL EGFR 97Comment: ESTIMATED GFR IS NOT ACCURATE mL/min/1.73 sq m CREATININE CLEARANCE IN PREDICTING GLOMERULAR FILTRATION RATE. ESTIMATED GFR IS NOT APPLICABLE FOR DIALYSIS PATIENTS. Specimen Performing Laboratory [facility] [address] [place] [address] STOOL PATH CHARGE (07/27/2017 12:11 PM) Component Value Ref Range Pathogen exam charged Done Specimen Performing Laboratory Stool - Per Rectum [facility] [address] [place] [address] Shiga Toxin Screen (07/27/2017 12:11 PM) Component Value Ref Range Shiga toxin 1 Not detected Not detected Shiga toxin 2 Not detected Not detected Specimen Performing Laboratory Stool - Per Rectum [facility] [address] [place] [address] Ova and Parasite Examination (07/27/2017 12:11 PM) Component Value Ref Range O&P Direct Smear No ova or parasites seen No ova or parasites seen O&P Concentrate Smear No ova or parasites seen No ova or parasites seen O&P Trichrome Smear No ova or parasites seen No ova or parasites seen Specimen Performing Laboratory Stool [facility] [address] [address] Stool culture + Shiga toxin (07/27/2017 12:11 PM) Component Value Ref Range Result No Salmonella, Shigella or Campylobacter isolated Specimen Performing Laboratory Stool - Per Rectum [facility] [address] [place] [address] Lipase (07/27/2017 5:54 AM) Component Value Ref Range Lipase 16 6 - 51 U/L Specimen Performing Laboratory Blood [facility] [address] [place] [address] Narrative Specimen slightly icteric Hemoglobin A1c (07/27/2017 5:54 AM) Component Value Ref Range Hemoglobin A1C 8.1 (H) 4.3 - 6.1 % Specimen Performing Laboratory [facility] [address] [place] [address] Amylase (07/27/2017 5:54 AM) Component Value Ref Range Amylase 76 30 - 110 U/L Specimen Performing Laboratory [facility] [address] [place] [address] Narrative Specimen slightly icteric Lipid panel (07/27/2017 5:54 AM) Component Value Ref Range Triglycerides 134 mg/dL Cholesterol 131 mg/dL HDL 25 mg/dL LDL Calculated 79 mg/dL Specimen Performing Laboratory Blood [facility] [address] [place] [address] Narrative Triglyceride Reference Range: Low Risk <150 [id number] High Risk 200-499 Very High Risk>=500 Cholesterol Reference Range: Low Risk <200 [id number] High Risk>240 HDL Cholesterol Reference Range: Low Risk >=60 High Risk <40 LDL Cholesterol Reference Range: Optimal<100 Near Oegprgj995-440 Gaoxddcorw767-855 [id number] Very High >=190 Specimen slightly icteric after 01/16/2017
--- OUTSIDE RECORDS SUMMARY | 2018-01-17 10:09 | XMS REPORT ---
:1950 [facility] Formerly [facility], [id number] Diomedesjosemanuel Hearn [address] [place] [address] Care Team Providers Name Role Phone HÉCTORGeovanna Unavailable Unavailable ANUSHA STACY Unavailable Unavailable [facility] ECHOLS Unavailable Unavailable Problems This patient has no known problems. Allergies, Adverse Reactions, Alerts This patient has no known allergies or adverse reactions. Medications This patient has no known medications. 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 4. Colonic diverticulosis. Signed: Nina Marie Verified Date/Time: 12/05/2017 10:58:51 Reading Location: [facility] Diagnostic Imaging Reading Room - [place] [address] -CREATININE 2017-12-05 10:25:00 Test Item Value Reference Range Comments POC-CREATININE (BEAKER) (test 0.7 mg/dL 0.6-1.3 TESTED AT [place] [address] ghms=3368) [facility] [address] POC-EGFR (BEAKER) (test 113 mL/min/1.73M2 icni=5583) ANTI-NUCLEAR ANTIBODY (ROBERT)2017-11-07 10:41:00 Test Item Value Reference Range Comments ANTI-NUCLEAR ANTIBODY (ROBERT) (BEAKER) (test Positive Negative djls=711) ROBERT TITER AND [id number] 10:41:00 Test Item Value Reference Range Comments ROBERT TITER (BEAKER) (test balc=7355) :160 ROBERT PATTERN (BEAKER) (test dzfb=9210) Homogeneous HEPATITIS B SURFACE [id number] 16:31:00 Test Item Value Reference Range Comments HEPATITIS B SURFACE ANTIBODY (BEAKER) (test < mIU/mL <8.0 zhyh=503) HEPATITIS A ANTIBODY, [id number] 16:30:00 Test Item Value Reference Range Comments HEPATITIS A IGG ANTIBODY (BEAKER) (test Nonreactive Nonreactive viwv=6450) HEPATITIS B CORE ANTIBODY, [id number] 15:46:00 Test Item Value Reference Range Comments HEPATITIS B CORE TOTAL ANTIBODY (BEAKER) (test Nonreactive Nonreactive gmbj=585) ALPHA FETOPROTEIN (AFP), TUMOR [id number] 15:41:00 Test Item Value Reference Range Comments ALPHA-FETOPROTEIN (BEAKER) (test bvru=9697) < ng/mL <10.0 [id number] 15:36:00 Test Item Value Reference Range Comments FERRITIN (BEAKER) (test dhbu=700) 38 ng/mL 5-275 HEPATITIS B SURFACE [id number] 15:30:00 Test Item Value Reference Range Comments HEPATITIS B SURFACE ANTIGEN (2) (BEAKER) (test Nonreactive Nonreactive gsmi=4525) HEPATITIS C [id number] 15:30:00 Test Item Value Reference Range Comments HEPATITIS C ANTIBODY (BEAKER) (test kvfj=288) Nonreactive Nonreactive IRON, TIBC, % SAT. (WITHOUT FERRITIN)2017-11-06 15:26:00 Test Item Value Reference Range Comments IRON (BEAKER) (test owfu=259) 66 ug/dL 40-160 TOTAL IRON BINDING CAPACITY (BEAKER) (test 300 ug/dL 250-450 ukmw=212) IRON % SATURATION (2) (BEAKER) (test yqqi=2538) 22 % 20-55 COMPREHENSIVE METABOLIC [id number] 15:24:00 Test Item Value Reference Range Comments TOTAL PROTEIN (BEAKER) 7.2 gm/dL 6.0-8.3 Specimen slightly (test mzpz=798) hemolyzed ALBUMIN (BEAKER) (test 3.6 g/dL 3.5-5.0 Specimen slightly yksx=8798) hemolyzed ALKALINE PHOSPHATASE 108 U/L 40-150 (BEAKER) (test kbne=174) BILIRUBIN TOTAL (BEAKER) 1.2 mg/dL 0.2-1.2 Specimen slightly (test cijb=734) hemolyzed SODIUM (BEAKER) (test 139 meq/L 136-145 jnfu=557) POTASSIUM (BEAKER) (test 4.1 meq/L 3.5-5.1 Specimen slightly chvj=758) hemolyzed CHLORIDE (BEAKER) (test 104 meq/L 98-107 xxks=218) CO2 (BEAKER) (test 23 meq/L 22-29 perj=912) BLOOD UREA NITROGEN 13 mg/dL 7-21 (BEAKER) (test ybdy=056) CREATININE (BEAKER) (test 0.71 mg/dL 0.57-1.25 Specimen slightly lnrw=452) hemolyzed GLUCOSE RANDOM (BEAKER) 115 mg/dL 70-105 (test kgtf=664) CALCIUM (BEAKER) (test 9.0 mg/dL 8.4-10.2 pdyu=163) AST (SGOT) (BEAKER) (test 51 U/L 5-34 Specimen slightly zznv=961) hemolyzed ALT (SGPT) (BEAKER) (test 53 U/L 6-55 Specimen slightly ahhd=592) hemolyzed EGFR (BEAKER) (test 112 mL/min/1.73 sq ESTIMATED GFR IS NOT lhek=3085) m ACCURATE CREATININE CLEARANCE IN PREDICTING GLOMERULAR FILTRATION RATE. ESTIMATED GFR IS NOT APPLICABLE FOR DIALYSIS PATIENTS. BILIRUBIN, [id number] 15:24:00 Test Item Value Reference Range Comments BILIRUBIN DIRECT (BEAKER) (test 0.4 mg/dL 0.1-0.5 Specimen slightly hemolyzed sfma=000) [id number] 15:15:00 Test Item Value Reference Range Comments ALPHA-1 ANTITRYPSIN (BEAKER) 136.30 mg/dL 90.00-200.00 Specimen slightly hemolyzed (test pxqb=106) PROTHROMBIN [id number] 14:53:00 Test Item Value Reference Range Comments PROTIME (BEAKER) (test zeed=163) 16.7 seconds 11.7-14.7 INR (BEAKER) (test vcwo=942) 1.4 <=5.9 RECOMMENDED COUMADIN/WARFARIN INR THERAPY RANGESSTANDARD DOSE: 2.0 - 3.0 Includes: PROPHYLAXIS forvenous thrombosis, systemic embolization; TREATMENT for venous thrombosis and/or pulmonary embolus.HIGH RISK: Target INR is 2.5-3.5 for patients with mechanical heart valves.CBC W/PLT COUNT & AUTO [id number] 14:43:00 Test Item Value Reference Range Comments WHITE BLOOD CELL COUNT (BEAKER) (test ydrd=300) 4.5 K/ L 3.5-10.5 RED BLOOD CELL COUNT (BEAKER) (test nhqn=246) 4.54 M/ L 4.63-6.08 HEMOGLOBIN (BEAKER) (test qvxe=386) 14.9 GM/DL 13.7-17.5 HEMATOCRIT (BEAKER) (test ivgj=010) 44.0 % 40.1-51.0 MEAN CORPUSCULAR VOLUME (BEAKER) (test enup=370) 96.9 fL 79.0-92.2 MEAN CORPUSCULAR HEMOGLOBIN (BEAKER) (test 32.8 pg 25.7-32.2 rxlw=102) MEAN CORPUSCULAR HEMOGLOBIN CONC (BEAKER) (test 33.9 GM/DL 32.3-36.5 kaip=724) RED CELL DISTRIBUTION WIDTH (BEAKER) (test 14.0 % 11.6-14.4 etle=922) PLATELET COUNT (BEAKER) (test esox=927) 115 K/CU MM 150-450 MEAN PLATELET VOLUME (BEAKER) (test jwkp=806) 10.8 fL 9.4-12.4 NUCLEATED RED BLOOD CELLS (BEAKER) (test 0 /100 WBC 0-0 ofqv=860) NEUTROPHILS RELATIVE PERCENT (BEAKER) (test 52 % ybqp=963) LYMPHOCYTES RELATIVE PERCENT (BEAKER) (test 32 % mbhp=066) MONOCYTES RELATIVE PERCENT (BEAKER) (test 10 % kuiz=578) EOSINOPHILS RELATIVE PERCENT (BEAKER) (test 4 % qoij=530) BASOPHILS RELATIVE PERCENT (BEAKER) (test 1 % whmq=400) NEUTROPHILS ABSOLUTE COUNT (BEAKER) (test 2.35 K/ L 1.78-5.38 xdzv=825) LYMPHOCYTES ABSOLUTE COUNT (BEAKER) (test 1.45 K/ L 1.32-3.57 scrn=456) MONOCYTES ABSOLUTE COUNT (BEAKER) (test 0.46 K/ L 0.30-0.82 teja=271) EOSINOPHILS ABSOLUTE COUNT (BEAKER) (test 0.20 K/ L 0.04-0.54 wgkp=693) BASOPHILS ABSOLUTE COUNT (BEAKER) (test 0.03 K/ L 0.01-0.08 ggrl=411) IMMATURE GRANULOCYTES-RELATIVE PERCENT (BEAKER) 1 % 0-1 (test rtie=6778) GLUCOMETER GLUCOSE- LAB USE [id number] 10:45:00 Test Item Value Reference Range Comments GLUCOMETER (test code=GMG) 115 mg/dL 70-100 OVA AND PARASITE [id number] 14:14:00 Test Item Value Reference Range Comments DIRECT SMEAR - O\T\P No ova or parasites seen No ova or parasites seen (BEAKER) (test qpgp=737) CONCENTRATE SMEAR - O\T\P No ova or parasites seen No ova or parasites seen (BEAKER) (test uwaq=918) TRICHROME SMEAR - O\T\P No ova or parasites seen No ova or parasites seen (BEAKER) (test ulpu=806) STOOL CULTURE + SHIGA [id number] 10:33:00 Test Item Value Reference Range Comments CULTURE ([facility]) (test No Salmonella, Shigella or ynbo=6208) Campylobacter isolated POCT-GLUCOSE [id number] 14:56:00 Test Item Value Reference Range Comments POC-GLUCOSE METER ([facility]) 223 mg/dL 70-110 TESTED AT [address] (test qcap=3253) [place] [id number] 06:26:00 Test Item Value Reference Range Comments D-DIMER QUANTITATIVE ([facility]) (test ujyp=790) 2.32 MG/L FEU <0.50 REGARDING D-DIMER RESULTS: The 98% NPV (Negative Predictive Value) for DVT/PE exclusion is 0.50 mg/LFEU as suggested by the per diem and as approved by the FDA.POCT-GLUCOSE [id number] 06:11:00 Test Item Value Reference Range Comments POC-GLUCOSE METER ([facility]) 182 mg/dL 70-110 TESTED AT [address] (test ottw=8243) [facility] [address] CBC W/PLT COUNT & AUTO [id number] 05:42:00 Test Item Value Reference Range Comments WHITE BLOOD CELL COUNT ([facility]) (test luhi=582) 3.3 K/ L 4.0-10.0 RED BLOOD CELL COUNT ([facility]) (test xwgq=787) 4.43 M/ L 4.20-5.80 HEMOGLOBIN ([facility]) (test arlb=429) 14.4 GM/DL 13.0-16.8 HEMATOCRIT ([facility]) (test ozoj=146) 42.1 % 40.0-50.0 MEAN CORPUSCULAR VOLUME (BEAKER) (test rscg=569) 95.0 fL 82.0-98.0 MEAN CORPUSCULAR HEMOGLOBIN (BEAKER) (test 32.4 pg 27.0-33.0 vwla=577) MEAN CORPUSCULAR HEMOGLOBIN CONC (BEAKER) (test 34.1 GM/DL 32.0-36.0 hpga=634) RED CELL DISTRIBUTION WIDTH (BEAKER) (test 15.3 % 10.3-14.2 ujyc=595) PLATELET COUNT (BEAKER) (test wizo=858) 112 K/CU MM 150-430 MEAN PLATELET VOLUME (BEAKER) (test vvse=458) 8.0 fL 6.5-10.5 NUCLEATED RED BLOOD CELLS (BEAKER) (test 0 /100 WBC 0-0 jxaa=169) NEUTROPHILS RELATIVE PERCENT (BEAKER) (test 47 % jhmw=102) LYMPHOCYTES RELATIVE PERCENT (BEAKER) (test 36 % odcy=331) MONOCYTES RELATIVE PERCENT (BEAKER) (test 11 % epua=592) EOSINOPHILS RELATIVE PERCENT (BEAKER) (test 5 % ytnu=886) BASOPHILS RELATIVE PERCENT (BEAKER) (test 0 % hxah=122) NEUTROPHILS ABSOLUTE COUNT (BEAKER) (test 1.50 K/ L 1.80-8.00 aefh=740) LYMPHOCYTES ABSOLUTE COUNT (BEAKER) (test 1.20 K/ L 1.48-4.50 crnt=819) MONOCYTES ABSOLUTE COUNT (BEAKER) (test 0.30 K/ L 0.00-1.30 aont=193) EOSINOPHILS ABSOLUTE COUNT (BEAKER) (test 0.20 K/ L 0.00-0.50 iqiu=990) BASOPHILS ABSOLUTE COUNT (BEAKER) (test 0.00 K/ L 0.00-0.20 hnvs=678) POCT-GLUCOSE [id number] 20:40:00 Test Item Value Reference Range Comments POC-GLUCOSE METER (BEAKER) 270 mg/dL 70-110 TESTED AT [address] (test nntp=9200) [facility] [address] POCT-GLUCOSE [id number] 16:31:00 Test Item Value Reference Range Comments POC-GLUCOSE METER (BEAKER) 216 mg/dL 70-110 TESTED AT [address] (test duom=7457) [facility] [address] SHIGA TOXIN [id number] 14:44:00 Test Item Value Reference Range Comments SHIGA TOXIN 1 (BEAKER) (test xfez=1516) Not detected Not detected SHIGA TOXIN 2 (BEAKER) (test kqio=6764) Not detected Not detected STOOL PATH [id number] 14:44:00 Test Item Value Reference Range Comments PATHOGEN EXAM CHARGED (BEAKER) (test qgrf=5196) Done CBC W/PLT COUNT & AUTO [id number] 14:18:00 Test Item Value Reference Range Comments WHITE BLOOD CELL COUNT (BEAKER) (test iuym=019) 4.1 K/ L 4.0-10.0 RED BLOOD CELL COUNT (BEAKER) (test rqvy=642) 4.50 M/ L 4.20-5.80 HEMOGLOBIN (BEAKER) (test hvpp=750) 14.9 GM/DL 13.0-16.8 HEMATOCRIT (BEAKER) (test yxdl=969) 43.2 % 40.0-50.0 MEAN CORPUSCULAR VOLUME (BEAKER) (test jjhk=080) 96.1 fL 82.0-98.0 MEAN CORPUSCULAR HEMOGLOBIN (BEAKER) (test 33.1 pg 27.0-33.0 ozhq=135) MEAN CORPUSCULAR HEMOGLOBIN CONC (BEAKER) (test 34.4 GM/DL 32.0-36.0 efpe=593) RED CELL DISTRIBUTION WIDTH (BEAKER) (test 15.3 % 10.3-14.2 sitc=699) PLATELET COUNT (BEAKER) (test jsai=751) 115 K/CU MM 150-430 MEAN PLATELET VOLUME (BEAKER) (test zxvn=144) 7.8 fL 6.5-10.5 NUCLEATED RED BLOOD CELLS (BEAKER) (test 0 /100 WBC 0-0 odpl=789) NEUTROPHILS RELATIVE PERCENT (BEAKER) (test 65 % ampx=760) LYMPHOCYTES RELATIVE PERCENT (BEAKER) (test 26 % uwno=764) MONOCYTES RELATIVE PERCENT (BEAKER) (test 7 % tdik=851) EOSINOPHILS RELATIVE PERCENT (BEAKER) (test 3 % xdyt=407) BASOPHILS RELATIVE PERCENT (BEAKER) (test 0 % pzwn=059) NEUTROPHILS ABSOLUTE COUNT (BEAKER) (test 2.70 K/ L 1.80-8.00 knka=407) LYMPHOCYTES ABSOLUTE COUNT (BEAKER) (test 1.10 K/ L 1.48-4.50 rrzw=938) MONOCYTES ABSOLUTE COUNT (BEAKER) (test 0.30 K/ L 0.00-1.30 zpcq=637) EOSINOPHILS ABSOLUTE COUNT (BEAKER) (test 0.10 K/ L 0.00-0.50 aphh=991) BASOPHILS ABSOLUTE COUNT (BEAKER) (test 0.00 K/ L 0.00-0.20 jtwk=612) BASIC METABOLIC [id number] 14:18:00 Test Item Value Reference Range Comments SODIUM (BEAKER) (test 134 meq/L 135-148 bqjv=908) POTASSIUM (BEAKER) (test 4.1 meq/L 3.6-5.5 kzfy=943) CHLORIDE (BEAKER) (test 103 meq/L 98-106 aegz=883) CO2 (BEAKER) (test 21 meq/L 20-29 ujya=320) BLOOD UREA NITROGEN 12 mg/dL 10-26 (BEAKER) (test zljk=570) CREATININE (BEAKER) (test 0.80 mg/dL 0.50-1.20 fjyx=074) GLUCOSE RANDOM (BEAKER) 293 mg/dL 70-110 (test qoek=420) CALCIUM (BEAKER) (test 9.1 mg/dL 8.5-10.5 fcqf=783) EGFR (BEAKER) (test 97 mL/min/1.73 sq m ESTIMATED GFR IS NOT ddrj=0302) ACCURATE CREATININE CLEARANCE IN PREDICTING GLOMERULAR FILTRATION RATE. ESTIMATED GFR IS NOT APPLICABLE FOR DIALYSIS PATIENTS. [id number] 14:12:00 Test Item Value Reference Range Comments MAGNESIUM (BEAKER) (test mfoi=139) 2.4 mg/dL 1.5-3.0 POCT-GLUCOSE [id number] 13:06:00 Test Item Value Reference Range Comments POC-GLUCOSE METER (BEAKER) 247 mg/dL 70-110 TESTED AT [facility] [address] (test tatb=2193) [address] [facility] [address] LIPID [id number] 07:28:00 Test Item Value Reference Range Comments TRIGLYCERIDES (BEAKER) (test tuww=368) 134 mg/dL CHOLESTEROL (BEAKER) (test hagi=494) 131 mg/dL HDL CHOLESTEROL (BEAKER) (test hqpa=503) 25 mg/dL LDL CHOLESTEROL CALCULATED (BEAKER) (test 79 mg/dL refq=783) Triglyceride Reference Range: Low Risk <150 Borderline 150- 199 High Risk 200-499 Very High Risk >=500Cholesterol Reference Range: Low Risk <200 Borderline 200-239 High Risk > 240HDL Cholesterol Reference Range: Low Risk >=60 High Risk <40LDL Cholesterol Reference Range: Optimal <100 Near Optimal 100-129 Borderline 130-159 High 160-189 Very High >=190 Specimen slightly [id number] 07:17:00 Test Item Value Reference Range Comments LIPASE (BEAKER) (test pgkk=652) 16 U/L 6-51 Specimen slightly ictericCOMPREHENSIVE METABOLIC [id number] 07:16:00 Test Item Value Reference Range Comments TOTAL PROTEIN (BEAKER) 6.2 gm/dL 6.0-8.5 (test rprv=666) ALBUMIN (BEAKER) (test 3.2 g/dL 3.5-5.0 trvh=8275) ALKALINE PHOSPHATASE 61 U/L 30-115 (BEAKER) (test dubh=229) BILIRUBIN TOTAL (BEAKER) 1.9 mg/dL 0.1-1.2 (test rzbq=853) SODIUM (BEAKER) (test 137 meq/L 135-148 obxy=602) POTASSIUM (BEAKER) (test 3.6 meq/L 3.6-5.5 moeu=961) CHLORIDE (BEAKER) (test 104 meq/L 98-106 wfod=358) CO2 (BEAKER) (test 23 meq/L 20-29 igij=312) BLOOD UREA NITROGEN 10 mg/dL 10-26 (BEAKER) (test nsdo=411) CREATININE (BEAKER) (test 0.70 mg/dL 0.50-1.20 lano=710) GLUCOSE RANDOM (BEAKER) 126 mg/dL 70-110 (test slkh=069) CALCIUM (BEAKER) (test 8.6 mg/dL 8.5-10.5 bysj=833) AST (SGOT) (BEAKER) (test 50 U/L 5-40 vill=871) ALT (SGPT) (BEAKER) (test 39 U/L 5-50 empp=343) EGFR (BEAKER) (test 114 mL/min/1.73 sq ESTIMATED GFR IS NOT ghej=4185) m ACCURATE CREATININE CLEARANCE IN PREDICTING GLOMERULAR FILTRATION RATE. ESTIMATED GFR IS NOT APPLICABLE FOR DIALYSIS PATIENTS. Specimen slightly ictericHEMOGLOBIN [id number] 07:14:00 Test Item Value Reference Range Comments HEMOGLOBIN A1C (BEAKER) (test ddvf=591) 8.1 % 4.3-6.1 [id number] 07:08:00 Test Item Value Reference Range Comments AMYLASE (BEAKER) (test hbjo=192) 76 U/L 30-110 Specimen slightly [id number] 07:07:00 Test Item Value Reference Range Comments MAGNESIUM (BEAKER) (test rqgb=279) 1.9 mg/dL 1.5-3.0 CBC W/PLT COUNT & AUTO [id number] 07:01:00 Test Item Value Reference Range Comments WHITE BLOOD CELL COUNT (BEAKER) (test aolf=695) 3.4 K/ L 4.0-10.0 RED BLOOD CELL COUNT (BEAKER) (test wtig=531) 4.29 M/ L 4.20-5.80 HEMOGLOBIN (BEAKER) (test hdox=879) 13.9 GM/DL 13.0-16.8 HEMATOCRIT (BEAKER) (test pcjv=336) 40.6 % 40.0-50.0 MEAN CORPUSCULAR VOLUME (BEAKER) (test cmmc=344) 94.6 fL 82.0-98.0 MEAN CORPUSCULAR HEMOGLOBIN (BEAKER) (test 32.5 pg 27.0-33.0 zwgt=127) MEAN CORPUSCULAR HEMOGLOBIN CONC (BEAKER) (test 34.3 GM/DL 32.0-36.0 lthl=059) RED CELL DISTRIBUTION WIDTH (BEAKER) (test 15.6 % 10.3-14.2 isbn=785) PLATELET COUNT (BEAKER) (test vuwr=552) 99 K/CU MM 150-430 MEAN PLATELET VOLUME (BEAKER) (test nmmu=834) 8.0 fL 6.5-10.5 NUCLEATED RED BLOOD CELLS (BEAKER) (test 0 /100 WBC 0-0 dcuu=245) NEUTROPHILS RELATIVE PERCENT (BEAKER) (test 49 % brum=549) LYMPHOCYTES RELATIVE PERCENT (BEAKER) (test 37 % tojw=144) MONOCYTES RELATIVE PERCENT (BEAKER) (test 10 % kjpg=334) EOSINOPHILS RELATIVE PERCENT (BEAKER) (test 4 % glzd=039) BASOPHILS RELATIVE PERCENT (BEAKER) (test 0 % srvs=274) NEUTROPHILS ABSOLUTE COUNT (BEAKER) (test 1.70 K/ L 1.80-8.00 nppd=713) LYMPHOCYTES ABSOLUTE COUNT (BEAKER) (test 1.30 K/ L 1.48-4.50 uuhm=806) MONOCYTES ABSOLUTE COUNT (BEAKER) (test dist=809) 0.30 K/ L 0.00-1.30 EOSINOPHILS ABSOLUTE COUNT (BEAKER) (test 0.20 K/ L 0.00-0.50 bbos=062) BASOPHILS ABSOLUTE COUNT (BEAKER) (test clti=405) 0.00 K/ L 0.00-0.20 GLUCOMETER GLUCOSE- LAB USE [id number] 04:55:00 Test Item Value Reference Range Comments GLUCOMETER (test code=GMG) 139 mg/dL 70-100 GLUCOMETER GLUCOSE- LAB USE [id number] 04:55:00 Test Item Value Reference Range Comments GLUCOMETER (test code=GMG) 163 mg/dL 70-100
--- NOTE | 2018-01-17 12:09 | RAD REPORT ---
EXAM DESCRIPTION: RAD - Foot Left 3 View - 01/17/2018 11:14 am CLINICAL HISTORY: Pain and swelling of the foot COMPARISON: None. FINDINGS: No acute fracture changes confirmed on this study. There is no dislocation or periosteal reaction. IP joint degenerative changes are present and there are mild degenerative changes of the fi rst MTP joint. Minimal plantar spur is seen. Achilles tendon calcifications are present. Soft tissue swelling is present over the dorsum of the distal foot. No air or foreign body seen. No a cute or destructive bony process. IMPRESSION: Soft tissue swelling of foot is present along with degenerative change. No acute or dest ructive bone process seen.
--- NOTE | 2018-01-17 13:00 | EDPHYS ---
Physician Documentation [facility] Name: Keron Brizuela Age: 67 yrs Sex: Male : 1950 Arrival Date: 01/17/2018 Time: 10:10 Bed 26 Private MD: ED Physician Eric Ahn HPI: 01/17 12:56 This 67 yrs old Male presents to ER via Wheelchair with complaints of Foot rn Injury. 12:56 The patient presents with an injury, pain. The complaints affect the left foot. Onset: rn The symptoms/episode began/occurred 3 day(s) ago. Severity of symptoms: At their worst the symptoms were moderate, in the emergency department the symptoms are unchanged. The patient has not experienced similar symptoms in the past. Reports installing a swing, working outside in steel-toe boots, doesn't recall obvious injury, but increased swelling and pain with walking, no fever, + mild redness began today so came in to be safe. Is diabetic. . Historical: - Allergies: 10:39 No Known Allergies; aj - Home Meds: 10:39 Glipizide Oral [Active]; Metformin Oral [Active]; Lantus Sub-Q [Active]; Jardiance oral aj oral [Active]; Eliquis oral oral [Active]; Labetalol Oral [Active]; fenofibrate oral oral [Active]; - PMHx: 10:39 Diabetes - IDDM; Hyperlipidemia; Hypertension; DVT; Cirrhosis; Varicies; aj - PSHx: 10:39 Lobectomy; Cholecystectomy; aj - Immunization history:: Adult Immunizations up to date. - Social history:: Smoking status: Patient/guardian denies using tobacco. - Family history:: not pertinent. - Hospitalizations: : No recent hospitalization is reported. ROS: 12:56 Constitutional: Negative for fever, chills, and weight loss, MS/Extremity: + possible rn injury and swelling Skin: + redness and ecchymosis to left foot Exam: 12:56 Constitutional: This is a well developed, well nourished patient who is awake, alert, rn and in no acute distress. MS/ Extremity: Pulses equal, no cyanosis. Neurovascular intact. + mild soft tissue swelling with mild erythema to dorsum, no warmth, no laceration. Vital Signs: 10:39 BP 119 / 69; Pulse 76; Resp 16; Temp 97.8; Pulse Ox 96% on R/A; Weight 108.86 kg; aj Height 6 ft. 2 in. (187.96 cm); Pain 5/10; 10:39 Body Mass Index 30.81 (108.86 kg, 187.96 cm) MDM: 12:43 Patient medically screened. rn 12:56 Differential diagnosis: fracture, sprain, gout, cellulitis. Data reviewed: vital signs, rn nurses notes, radiologic studies, plain films, and as a result, I will discharge patient. Counseling: I had a detailed discussion with the patient and/or guardian regarding: the historical points, exam findings, and any diagnostic results supporting the discharge/admit diagnosis, radiology results, the need for outpatient follow up, to return to the emergency department if symptoms worsen or persist or if there are any questions or concerns that arise at home. Special discussion: I discussed with the patient/guardian in detail that at this point there is no indication for admission to the hospital. It is understood, however, that if the symptoms persist or worsen the patient needs to return immediately for re-evaluation. 01/17 10:40 Order name: XRAY Foot LEFT 3 View; Complete Time: 12:43 Administered Medications: 13:00 Drug: Triangle 10 mg-325 mg 1 tabs Route: PO; 13:26 Follow up: Response: Medication administered at discharge. Disposition: 01/17/18 13:00 Discharged to Home. Impression: Other sprain of left foot. - Condition is Stable. - Discharge Instructions: Foot Sprain. - Prescriptions for Keflex 500 mg Oral Capsule - take 1 capsule by ORAL route every 12 hours for 10 days; 20 capsule. Ultram 50 mg Oral Tablet - take 1 tablet by ORAL route every 6 hours As needed; 20 tablet. - Medication Reconciliation Form, Thank You Letter, Antibiotic Education, Prescription Opioid Use form. - Follow up: Private Physician; When: As needed; Reason: Recheck today's complaints, Re-evaluation by your physician. - Problem is new. - Symptoms have improved. Signatures: Dispatcher [employer] EDSherin Farrell RN RN aj Nieto, Roman, MD MD rn Smirch, Shelby, RN RN ss
--- NOTE | 2018-01-17 13:00 | ER ---
Nurse's Notes [facility] Name: Keron Brizuela Age: 67 yrs Sex: Male : 1950 Arrival Date: 01/17/2018 Time: 10:10 Bed 26 Private MD: Diagnosis: Other sprain of left foot Presentation: 01/17 10:35 Presenting complaint: Patient states: Left foot pain since Monday after moving concrete. Patient reports redness and swelling to top of left foot. Patient denies trauma. Pain is worse when standing and walking. Transition of care: patient was not received from another setting of care. Onset of symptoms was January 13, 2018. Initial Sepsis Screen: Does the patient meet any 2 criteria? No. Patient's initial sepsis screen is negative. Does the patient have a suspected source of infection? No. Patient's initial sepsis screen is negative. Care prior to arrival: None. 10:35 Method Of Arrival: Wheelchair 10:35 Acuity: KARI 4 Triage Assessment: 10:39 General: Appears in no apparent distress. comfortable, Behavior is calm, cooperative, aj appropriate for age. Pain: Complains of pain in dorsum of left foot. Neuro: Level of Consciousness is awake, alert, obeys commands, Oriented to person, place, time, situation, Appropriate for age. Respiratory: Airway is patent Respiratory effort is even, unlabored, Respiratory pattern is regular, symmetrical. Derm: Skin is intact, is healthy with good turgor, Skin is pink, warm \T\ dry. normal. Musculoskeletal: Reports pain in left foot. Injury Description: Bruise sustained to left foot. Historical: - Allergies: 10:39 No Known Allergies; aj - Home Meds: 10:39 Glipizide Oral [Active]; Metformin Oral [Active]; Lantus Sub-Q [Active]; Jardiance oral aj oral [Active]; Eliquis oral oral [Active]; Labetalol Oral [Active]; fenofibrate oral oral [Active]; - PMHx: 10:39 Diabetes - IDDM; Hyperlipidemia; Hypertension; DVT; Cirrhosis; Varicies; aj - PSHx: 10:39 Lobectomy; Cholecystectomy; aj - Immunization history:: Adult Immunizations up to date. - Social history:: Smoking status: Patient/guardian denies using tobacco. - Family history:: not pertinent. - Hospitalizations: : No recent hospitalization is reported. Vital Signs: 10:39 BP 119 / 69; Pulse 76; Resp 16; Temp 97.8; Pulse Ox 96% on R/A; Weight 108.86 kg; aj Height 6 ft. 2 in. (187.96 cm); Pain 5/10; 10:39 Body Mass Index 30.81 (108.86 kg, 187.96 cm) aj ED Course: 10:10 Patient arrived in ED. as 10:36 Triage completed. aj 10:39 Arm band placed on right wrist. Patient placed in waiting room, Patient notified of wait time. X-ray ordered. 11:12 X-ray completed. Portable x-ray completed in exam room. Patient tolerated procedure jb2 well. 11:12 XRAY Foot LEFT 3 View In Process Unspecified. EDMS 12:43 Eric Ahn MD is Attending Physician. rn 13:25 Ilene Minor RN is Primary Nurse. ss 13:26 No provider procedures requiring assistance completed. Patient did not have IV access ss during this emergency room visit. Administered Medications: 13:00 Drug: [place] 10 mg-325 mg 1 tabs Route: PO; ss 13:26 Follow up: Response: Medication administered at discharge. ss Outcome: 13:00 Discharge ordered by . rn 13:26 Discharged to home ambulatory. ss 13:26 Condition: good 13:26 Discharge instructions given to patient, family, Instructed on discharge instructions, follow up and referral plans. medication usage, Demonstrated understanding of instructions, follow-up care, medications, Prescriptions given X 2. 13:27 Patient left the ED. ss Signatures: Dispatcher [employer] EDIL Sherin Priest RN RN aj Buechter, Jesse jb2 Jennifer Yang Roman, MD MD rn Smirch, Shelby, RN RN ss
[2018-01-17] MEDS ORDERED: HYDROCODONE/APAP 10/325 TAB ONE (13:03)
== END 2018-01-17 13:27 | disposition home or self-care (01) ==
LOC: ER 10:06
DX: S93.602A Unspecified sprain of left foot, initial encounter (principal); X58.XXXA Exposure to other specified factors, initial encounter; Y92.89 Other specified places as the place of occurrence of the external cause; E11.9 Type 2 diabetes mellitus without complications; E78.5 Hyperlipidemia, unspecified; I10 Essential (primary) hypertension
CPT/HCPCS: 99283

== ENCOUNTER 2018-01-23 21:40 | Emergency (ER) | payer OTHER, MEDICARE ==
--- OUTSIDE RECORDS SUMMARY | 2018-01-23 21:42 | XMS REPORT | Clinical Summary ---
:[address] [facility] Address [address] [place] [address] Phone Care Team Providers Name Role Phone [...] Hepatology Benedict Gutierres Other cirrhosis of MD [place] liver (HCC) (Primary Dx);Portal hypertension (HCC);Portal vein [...] General Internal Korey Taylor, 07/29/2017 Medicine MD Lenoard, Anderson Hansen MD 07/26/2017 Orders Only Mahad Rivera, ESTEBAN after 01/22/2017 Immunizations Name Dates Previously Given Next Due [...] Taken Blood Pressure 115/67 11/06/2017 10:49 AM TRAIN INSPECTOR Pulse 67 11/06/2017 10:49 AM TRAIN INSPECTOR Temperature 36.6 C (97.8 F) 11/06/2017 10:49 AM TRAIN INSPECTOR Respiratory Rate 20 11/06/2017 10:49 AM TRAIN INSPECTOR Oxygen Saturation 97% 11/06/2017 10:49 AM TRAIN INSPECTOR Inhaled Oxygen Concentration - - Weight 110.5 kg (243 lb 9.6 oz) 12/12/2017 2:08 PM CDT Height 188 cm (6' 2") 11/06/2017 10:49 AM TRAIN INSPECTOR Body Mass Index 31.28 12/12/2017 2:08 PM CDT Plan of Treatment Date Type Specialty Care Team Description 06/15/2018 Office Visit Hepatology Benedict Gutierres MD [address] [facility] [address] [place] [address] Resource, [facility] Health Maintenance Due Date Last Done Comments INFLUENZA VACCINE 06/25/2018 07/27/[address] abdomen with/without contrast (12/05/2017 10:35 AM) Specimen Performing Laboratory [employer] Narrative FINAL REPORT HISTORY : cirrhosis with [...] MD Report Verified Date/Time:12/05/2017 10:58:51 Reading Location: [facility] Diagnostic Imaging Reading Room - [place] [address] Procedure Note Interface, External Ris In - [...] Report Verified Date/Time: 12/05/2017 10:58:51 Reading Location: [facility] Diagnostic Imaging Reading Room - [place] [address] -Creatinine (12/05/2017 10:20 AM) Component Value Ref Range POC-Creatinine 0.7Comment: TESTED AT [facility]-[address] 0.6 - 1.3 mg/dL [facility] [address] POC-EGFR 113 mL/min/1.73M2 Specimen Performing Laboratory Blood [address] [address] Hepatitis A antibody, IgG (11/06/2017 1:03 PM) Component Value Ref Range Hep A IgG Nonreactive Nonreactive Specimen Performing Laboratory Blood [address] [address] Mitochondrial Antibodies, M2 (11/06/2017 1:03 PM) Component Value Ref Range Mitochondria M2 Ab <20.0 See Note: U Comment: Reference Range: NEGATIVE:< OR=20.0 EQUIVOCAL: 20.1-24.9 POSITIVE:> OR=25.0 Specimen Performing Laboratory Blood [facility] [address] [place] [address] Narrative Performing Lab EZ [facility] [address] [place] [address] Geovanna Rey MD, PhD Iron, TIBC, % sat. (without ferritin) (11/06/2017 1:03 PM) Component Value Ref Range Iron 66 40 - 160 ug/dL TIBC 300 250 - 450 ug/dL Iron % Saturation 22 20 - 55 % Specimen Performing Laboratory Blood [facility] [address] [place] [address] CBC with platelet count + automated diff [...] - 1 % Specimen Performing Laboratory Blood [address] [address] Hepatitis C antibody (11/06/2017 1:03 PM) Component Value Ref Range Hepatitis C Ab Nonreactive Nonreactive Specimen Performing Laboratory Blood [address] [address] Actin (Smooth Muscle) Antibody, IgG (11/06/2017 1:03 [...] Specimen Performing Laboratory Blood [facility] [address] [address] Narrative Performing Lab EZ [facility] [address] [address] Geovanna Rey MD, PhD [id number] (11/06/2017 1:03 PM) Component Value Ref Range A-1 Antitrypsin 136.30Comment: Specimen slightly hemolyzed 90.00 - 200.00 mg/ dL Specimen Performing Laboratory Blood [address] [address] ROBERT Titer & Pattern (11/06/2017 1:03 PM) Component Value Ref Range ROBERT Titer 1:160 ROBERT Pattern Homogeneous Specimen Performing Laboratory Blood [address] [address] Ceruloplasmin (11/06/2017 1:03 PM) Component Value Ref Range Ceruloplasmin 25 18 - 36 mg/dL Comment: Adults:Males: 18-36 mg/dL Females: 18-53 mg/dL Pediatrics:Males (mg/dL)Females (mg/dL) 0-30 Days 8-25 3-28 31 Days-11 Month [id number] 1-3 [id number] 4-6 [id number] 7-9 [id number] 10-12 [id number] 13-15 [id number] 16-18 [id number] The pediatric ranges are derived from the following criteria: Enrique SJ, Opal KEE, Fadia J et al Pediatric reference ranges for Gzuc-3-Kjzesasdwgomm and ceruloplasmin. Clin. Chem 1997; 43:S1999 Pediatric Reference Ranges, 2nd., [place] Enriqueet al. editors. [employer], [place], [place] 1997. Specimen Performing Laboratory Blood [facility] [address] [place] [address] Narrative Performing Lab *SPL [facility], [address] [place] [id number] Geovanna Rey MD, PhD Alpha fetoprotein (AFP), tumor marker (11/06/2017 1:03 PM) Component Value Ref Range Alpha-Fetoprotein <2.0 <10.0 ng/mL Specimen Performing Laboratory Blood [address] [address] Hepatitis B core antibody, total (11/06/2017 1:03 PM) Component Value Ref Range Hep B Core Total Ab Nonreactive Nonreactive Specimen Performing Laboratory Blood [address] [address] Hepatitis B surface antibody (11/06/2017 1:03 PM) Component Value Ref Range Hep B S Ab <8.0 <8.0 mIU/mL Specimen Performing Laboratory Blood [address] [address] Hepatitis B surface antigen (11/06/2017 1:03 PM) Component Value Ref Range hepatitis B Surface Ag Nonreactive Nonreactive Specimen Performing Laboratory Blood [address] [address] Pro-time/INR (11/06/2017 1:03 PM) Component Value Ref Range Protime 16.7 (H) 11.7 - 14.7 seconds INR 1.4 <=5.9 Specimen Performing Laboratory Blood [address] [address] Narrative RECOMMENDED COUMADIN/WARFARIN INR THERAPY RANGES STANDARD DOSE: 2.0 - 3.0 Includes: PROPHYLAXIS for venous thrombosis, systemic embolization; TREATMENT for venous thrombosis and/or pulmonary embolus. HIGH RISK: Target INR is 2.5-3.5 for patients with mechanical heart valves. CBC with platelet count + automated diff (11/06/2017 1:03 PM)Only the most recent of4 resultswithin the time period is included. Specimen Performing Laboratory Blood [facility] Narrative The following orders were created for panel order CBC with platelet count + automated diff. Procedure Abnormality Status --------- ------ CBC with platelet count ...[[id number]]AbnormalFinal result Please view results for these tests on the individual orders. Anti-Nuclear Antibody (ROBERT) (11/06/2017 1:03 PM) Component Value Ref Range ROBERT Positive (A) Negative Specimen Performing Laboratory [address] [address] Ferritin (11/06/2017 1:03 PM) Component Value Ref Range Ferritin 38 5 - 275 ng/mL Specimen Performing Laboratory [address] [address] Bilirubin, direct (11/06/2017 1:03 PM) Component Value Ref Range Bilirubin, Direct 0.4Comment: Specimen slightly hemolyzed 0.1 - 0.5 mg/dL Specimen Performing Laboratory Blood [address] [address] Comprehensive Metabolic Panel (11/06/2017 1:03 PM)Only the [...] FOR DIALYSIS PATIENTS. Specimen Performing Laboratory Blood [address] [address] POC-Glucose meter (07/29/2017 2:55 PM)Only the most recent of5 resultswithin the time period is included. Component Value Ref Range POC-Glucose Meter 223 (H)Comment: TESTED AT [facility] [address] [place] [address] [address] 70 - 110 mg/dL [place] [address] Specimen Performing Laboratory Blood [address] [address] D-dimer (07/29/2017 5:21 AM) Component Value Ref Range D-Dimer, Quant 2.32 (H) <0.50 MG/L FEU Specimen Performing Laboratory Blood - Arm, Right [facility] [address] [place] [address] Narrative REGARDING D-DIMER RESULTS: The 98% NPV (Negative Predictive Value) for DVT/PE exclusion is 0.50 mg/L FEU as suggested by the food writer and as approved by the FDA. Magnesium (07/28/2017 1:56 PM)Only the most recent of2 resultswithin the time period is included. Component Value Ref Range Magnesium 2.4 1.5 - 3.0 mg/dL Specimen Performing Laboratory Blood [facility] [address] [place], [place] [address] Basic Metabolic Panel (07/28/2017 1:56 PM) Component [...] APPLICABLE FOR DIALYSIS PATIENTS. Specimen Performing Laboratory [facility] [address] [place] [address] STOOL PATH CHARGE (07/27/2017 12:11 PM) Component Value Ref Range Pathogen exam charged Done Specimen Performing Laboratory Stool - Per Rectum [facility] [address] [place] [address] Shiga Toxin Screen (07/27/2017 12:11 PM) Component Value Ref Range Shiga toxin 1 Not detected Not detected Shiga toxin 2 Not detected Not detected Specimen Performing Laboratory Stool - Per Rectum [facility] [address] [place] [address] Ova and Parasite Examination (07/27/2017 12:11 PM) Component Value Ref Range O&P Direct Smear No ova or parasites seen No ova or parasites seen O&P Concentrate Smear No ova or parasites seen No ova or parasites seen O&P Trichrome Smear No ova or parasites seen No ova or parasites seen Specimen Performing Laboratory Stool [facility] [address] [address] Stool culture + Shiga toxin (07/27/2017 12:11 PM) Component Value Ref Range Result No Salmonella, Shigella or Campylobacter isolated Specimen Performing Laboratory Stool - Per Rectum [facility] [address] [place] [address] Lipase (07/27/2017 5:54 AM) Component Value Ref Range Lipase 16 6 - 51 U/L Specimen Performing Laboratory Blood [facility] [address] [place] [address] Narrative Specimen slightly icteric Hemoglobin A1c (07/27/2017 5:54 AM) Component Value Ref Range Hemoglobin A1C 8.1 (H) 4.3 - 6.1 % Specimen Performing Laboratory [facility] [address] [place] [address] Amylase (07/27/2017 5:54 AM) Component Value Ref Range Amylase 76 30 - 110 U/L Specimen Performing Laboratory [facility] [address] [place] [address] Narrative Specimen slightly icteric Lipid panel (07/27/2017 5:54 AM) Component Value Ref Range Triglycerides 134 mg/dL Cholesterol 131 mg/dL HDL 25 mg/dL LDL Calculated 79 mg/dL Specimen Performing Laboratory Blood [facility] [address] [place] [address] Narrative Triglyceride Reference Range: Low Risk <150 [id number] High Risk 200-499 Very High Risk>=500 Cholesterol Reference Range: Low Risk <200 Mulgrimkwk860-742 High Risk>240 HDL Cholesterol Reference Range: Low Risk >=60 High Risk <40 LDL Cholesterol Reference Range: Optimal<100 Near Dgyomlj474-601 Sxyoqxhnbf169-969 Dqrf978-325 Very High >=190 Specimen slightly icteric after 01/22/2017
--- OUTSIDE RECORDS SUMMARY | 2018-01-23 21:42 | XMS REPORT | Clinical Summary ---
:1950 Author Organization [facility] Address [address] [place] [address] Care Team Providers Name Role Phone AcostaWarren [...] MD Mesenteric thrombosis Barbara Machado MD after 01/22/2017 Social History Tobacco Use Types Packs/Day Years [...] 02/06/2018 Surgery Gastroenterology Gama Orozco MD EGD [address] [address] 02/06/2018 Procedure Pass Gastroenterology 02/06/2018 Hospital [place] [address] [facility] [address] [place] [address] Health Maintenance Due Date Last Done Comments COLONOSCOPY 2002 SHINGRIX VACCINE (#1) 2002 ZOSTER VACCINE 2012 PNEUMOCOCCAL POLYSACCHARIDE VACCINE AGE 65 AND OVER 2017 PNEUMOCOCCAL-13 2017 INFLUENZA VACCINE 04/25/2018 Results POC glucose (07/26/2017 9:13 PM)Only the most recent of4 resultswithin the time period is included. Component Value Ref Range POC glucose 128 (H) 65 - 99 mg/dL Comment: Meter ID: [id number] Student Affairs Vice President: Tan Elena Specimen Performing Laboratory [facility] DEPARTMENT OF PATHOLOGY AND GENOMIC MEDICINE [address] [place] [address] Prothrombin mutation, factor II, by PCR (07/26/2017 6:00 PM) Component Value Ref Range Prothrombin gene mutation Normal Normal Prothrombin gene mutation See link below for PDF Lab ReportComment: Specimen Performing Laboratory Blood [facility] DEPARTMENT OF PATHOLOGY [address] [address] Factor V leiden by PCR (07/26/2017 6:00 PM) Component Value Ref Range Factor V Leiden Normal Factor V Leiden See link below for PDF Lab ReportComment: Specimen Performing Laboratory Blood [facility] PATHOLOGY [address] [address] KAYLYNN 2 mutation detection by PCR (07/26/2017 5:00 PM) Component Value Ref Range KAYLYNN-2 mutation ID Not-Detected Not-Detected KAYLYNN-2 amplification Not-Detected Not-Detected KAYLYNN 2 mutation detection, PCR See link below for PDF Lab ReportComment: Specimen Performing Laboratory Blood [facility] PATHOLOGY [address] [address] Free and total protein S (07/26/2017 5:00 PM) Component Value Ref Range Protein S Ag, free 74 62 - 160 % Protein S Ag, total 94 71 - 150 % Specimen Performing Laboratory Blood [facility] OF PATHOLOGY [address] [address] Alpha fetoprotein (07/26/2017 5:00 PM) Component Value Ref Range Alpha fetoprotein 2.2 0.0 - 8.3 ng/mL Comment: The Padma 8000 AFP immunoassay was used. Results obtained with different assay methods or kits should not be used interchangeably and may be different. Specimen Performing Laboratory Serum [facility] PATHOLOGY [address] [address] Beta-2 glycoprotein 1 Abs, IgG & IgM (07/26/2017 5:00 PM) Component Value Ref Range Beta-2 glycoprotein 1 antibody, IgG 0 0 - 20 Beta-2 glycoprotein 1 antibody, IgM 1 0 - 20 Comment: INTERPRETIVE INFORMATION: [id number] I, IgG and IgM Antibody The persistent [...] other criteria phospholipid antibody tests. Performed by [employer], [address] [place] [address] [email or web address] [email or web address] Winslow MD - Lab. Director Specimen Performing Laboratory Serum [facility] [address] [place] [address] Functional protein S (07/26/2017 5:00 PM) Component Value Ref Range Functional protein S 55 (L) 74 - 160 % Comment: Functional Protein S performed.If result is decreased Total and Free Protein S Antigen will be performed. Specimen Performing Laboratory Blood [facility] DEPARTMENT OF PATHOLOGY AND GENOMIC MEDICINE [address] [place] [address] Functional protein C (07/26/2017 5:00 PM) Component Value Ref Range Functional protein C 61 (L) 70 - 165 % Specimen Performing Laboratory Blood [facility] DEPARTMENT OF PATHOLOGY AND GENOMIC MEDICINE [address] [place] [address] Lupus anticoagulant panel (07/26/2017 5:00 PM) Component [...] - 46.0 sec Specimen Performing Laboratory Blood [facility] DEPARTMENT OF PATHOLOGY AND GENOMIC MEDICINE [id number] [place] [address] Cardiolipin antibodies (07/26/2017 5:00 PM) Component Value Ref Range Cardiolipin IgG 1 0 - 14 GPL Comment: Negative=<15 GPL Indeterminate=15-20 GPL Positive=>20 GPL Cardiolipin IgM 6 0 - 12 MPL Comment: Negative=<13 MPL Indeterminate=13-20 MPL Positive=>20 MPL Specimen Performing Laboratory Blood [facility] DEPARTMENT OF PATHOLOGY AND GENOMIC MEDICINE [address] [place] [address] Antithrombin III level (07/26/2017 5:00 PM) Component Value Ref Range Antithrombin III 64 (L) 80 - 130 % Comment: Low Protein S, Protein C Activity, and Antithrombin Activity consistent with ongoing thrombosis. Repeat in 1 - 2 months. Reviewed by Specimen Performing Laboratory Blood [facility] DEPARTMENT OF PATHOLOGY AND GENOMIC MEDICINE [address] [place] [address] Estimated GFR (07/26/2017 5:30 AM)Only the most [...] and Americans. Specimen Performing Laboratory Plasma specimen [facility] DEPARTMENT OF PATHOLOGY AND [address] [place] [address] Troponin (07/26/2017 5:30 AM)Only the most recent [...] myocardial injury. Specimen Performing Laboratory Plasma specimen [facility] PATHOLOGY AND [address] [place] [address] CBC with platelet and differential (07/26/2017 5:30 [...] - 1.0 % Specimen Performing Laboratory Blood [facility] DEPARTMENT OF PATHOLOGY AND [address] [place] [address] Comprehensive metabolic panel (07/26/2017 5:30 AM)Only the [...] 1.2 mg/dL Specimen Performing Laboratory Plasma specimen [facility] DEPARTMENT OF PATHOLOGY AND [address] [address] Phosphorus level (07/26/2017 1:13 AM) Component Value Ref Range Phosphorus 3.7 2.4 - 4.5 mg/dL Specimen Performing Laboratory Plasma specimen [facility] DEPARTMENT OF PATHOLOGY AND GENOMIC [address] [place] [address] [address] Magnesium level (07/26/2017 1:13 AM) Component Value Ref Range Magnesium 2.1 1.6 - 2.4 mg/dL Specimen Performing Laboratory Plasma specimen [facility] DEPARTMENT OF PATHOLOGY AND GENOMIC [address] [place] [address] [address] Ionized calcium (07/26/2017 1:13 AM) Component Value Ref Range pH 7.40 Ionized calcium 1.09 (L) 1.11 - 1.32 mmol/L Specimen Performing Laboratory Plasma specimen [facility] DEPARTMENT PATHOLOGY AND [facility] MEDICINE [address] [place] [address] Occult blood, stool (07/25/2017 7:46 PM) Component Value Ref Range Occult blood, stool Negative for occult blood. Comment: Specimen Information Specimen Source: Rectal Swab Specimen Site: Nonpreserved Specimen Performing Laboratory Rectal swab - Nonpreserved [facility] DEPARTMENT OF PATHOLOGY AND GENOMIC MEDICINE [address] [place] [address] Abdomen Pelvis W Contrast (07/25/2017 7:09 PM) Specimen Performing Laboratory [facility] [address] [facility] [place] [address] Narrative EXAMINATION:CT ABDOMEN PELVIS W CONTRAST CLINICAL [...] 4.Severe vascular disease. Grossly patent mesenteric arteries. [facility]-[id number] Procedure Note Interface, Radiology Results Incoming - [...] Severe vascular disease. Grossly patent mesenteric arteries. [facility]-[id number] XR Chest 2 Vw (07/25/2017 6:23 PM) Specimen Performing Laboratory [facility] [address] [place] [address] Narrative Examination:XR CHEST 2 VW Clinical History: right sided posterior chest pain Comparison: None. Technique: Frontal and lateral views of the chest Impression: Lungs appear slightly hyperinflated. No focal consolidation or pleural effusion. Heart size and pulmonary vascularity grossly normal. Numerous old fracture deformities are seen in bilateral ribs and clavicles. [facility]-[id number] Procedure Note Interface, Radiology Results Incoming - 07/25/2017 6:27 PM CDT Examination: XR CHEST 2 VW Clinical History: right sided posterior chest pain Comparison: None. Technique: Frontal and lateral views of the chest Impression: Lungs appear slightly hyperinflated. No focal consolidation or pleural effusion. Heart size and pulmonary vascularity grossly normal. Numerous old fracture deformities are seen in bilateral ribs and clavicles. [facility]-[id number] Urinalysis screen and microscopy, with reflex to [...] UA None seen Specimen Performing Laboratory Urine [facility] DEPARTMENT OF PATHOLOGY AND [address] [address] Urine culture (07/25/2017 5:55 PM) Component Value Ref Range Urine culture SEE COMMENTComment: Bacteriuria screen negative. Specimen Performing Laboratory [facility] PATHOLOGY [place] [id number] ECG 12 lead (07/25/2017 5:47 PM) Component Value Ref Range Ventricular rate 69 Atrial rate 69 WV interval 176 QRSD interval 142 QT interval 460 QTC interval 492 P axis 1 67 QRS axis 1 262 T wave axis 53 EKG impression Normal sinus rhythm-Right bundle branch block-Abnormal ECG-In automated comparison with ECG of 25-JUL-2017 17:47,-No significant change was found- Specimen Performing Laboratory [facility] [address] [place] [address] Partial thromboplastin time, activated (07/25/2017 5:42 PM) Component Value Ref Range PTT 27.5 23.0 - 36.0 sec Comment: PTT therapeutic range for unfractionated heparin is 61.0-112.0 seconds which corresponds to Anti-Xa 0.3-0.7 U/ml. Specimen Performing Laboratory Blood [facility] DEPARTMENT OF PATHOLOGY AND [facility] MEDICINE [address] [place] [address] Prothrombin time with INR (07/25/2017 5:42 PM) Component Value Ref Range Prothrombin time 15.4 (H) 12.0 - 15.0 sec INR 1.2 Comment: The International Normalized Ratio (INR) is a therapeutic monitoring tool for patients who are stable on oral anticoagulant therapy. An INR of 2.0-3.0 is suggested for deep vein thrombosis/pulmonary embolism. Specimen Performing Laboratory Blood [facility] DEPARTMENT OF PATHOLOGY AND [address] [address] B natriuretic peptide (07/25/2017 5:42 PM) Component Value Ref Range BNP 38 0 - 100 pg/mL Specimen Performing Laboratory Blood [facility] DEPARTMENT OF PATHOLOGY AND GENOMIC MEDICINE [address] [place] [address] Lipase level (07/25/2017 5:42 PM) Component Value Ref Range Lipase 25 13 - 60 U/L Specimen Performing Laboratory Plasma specimen [facility] DEPARTMENT OF PATHOLOGY AND GENOMIC MEDICINE [address] [place] [address] Creatine kinase, total (CPK) (07/25/2017 5:42 PM) Component Value Ref Range Creatine kinase 52 39 - 308 U/L Specimen Performing Laboratory Plasma specimen [facility] DEPARTMENT OF PATHOLOGY AND GENOMIC MEDICINE [address] [place] [address] Amylase level (07/25/2017 5:42 PM) Component Value Ref Range Amylase 19 13 - 73 U/L Specimen Performing Laboratory Plasma specimen [facility] DEPARTMENT OF PATHOLOGY AND GENOMIC MEDICINE [address] [place] [address] after 01/22/2017 Insurance Payer Benefit Plan / Group Subscriber ID Type Phone Address [employer] [facility] x[facility]xxx Exchange Home: [address] [phone] [place] [phone]
--- OUTSIDE RECORDS SUMMARY | 2018-01-23 21:43 | XMS REPORT ---
:1950 [facility] [place] [address] [place] [address] Care Team Providers Name Role Phone Geovanna ANAYA Unavailable Unavailable ANUSHA STACY Unavailable Unavailable KHRIS ECHOLS Unavailable Unavailable Problems This patient has no known problems. Allergies, Adverse Reactions, Alerts This patient has no known allergies or adverse reactions. Medications This patient has no known medications. Results Test Description Test Time Test Comments Text Results Atomic Results Result Comments CT, ABDOMEN, 2017-12-05 10:58:00 Referring: Warren FINAL REPORT PATIENT ID : JOVAN Acosta DO [id number] HISTORY : cirrhosis with cirrhosis with PVT/SMV [...] Marie Verified Date/Time: 12/05/2017 10:58:51 Reading Location: [facility] Diagnostic Imaging Reading Room - [place] [address] -CREATININE 2017-12-05 10:25:00 Test Item Value Reference Range Comments POC-CREATININE (BEAKER) (test 0.7 mg/dL 0.6-1.3 TESTED AT [place] [address] ekxs=6756) [facility] [address] POC-EGFR (BEAKER) (test 113 mL/min/1.73M2 oroz=3531) ANTI-NUCLEAR ANTIBODY (ROBERT)2017-11-07 10:41:00 Test Item Value Reference Range Comments ANTI-NUCLEAR ANTIBODY (ROBERT) (BEAKER) (test Positive Negative ntlc=073) ROBERT TITER AND [id number] 10:41:00 Test Item Value Reference Range Comments ROBERT TITER (BEAKER) (test acgf=8009) :160 ROBERT PATTERN (BEAKER) (test cxxa=8605) Homogeneous HEPATITIS B SURFACE [id number] 16:31:00 Test Item Value Reference Range Comments HEPATITIS B SURFACE ANTIBODY (BEAKER) (test < mIU/mL <8.0 viyl=929) HEPATITIS A ANTIBODY, [id number] 16:30:00 Test Item Value Reference Range Comments HEPATITIS A IGG ANTIBODY (BEAKER) (test Nonreactive Nonreactive hxfa=8476) HEPATITIS B CORE ANTIBODY, [id number] 15:46:00 Test Item Value Reference Range Comments HEPATITIS B CORE TOTAL ANTIBODY (BEAKER) (test Nonreactive Nonreactive xffp=760) ALPHA FETOPROTEIN (AFP), TUMOR [id number] 15:41:00 Test Item Value Reference Range Comments ALPHA-FETOPROTEIN (BEAKER) (test jrup=0156) < ng/mL <10.0 [id number] 15:36:00 Test Item Value Reference Range Comments FERRITIN (BEAKER) (test zqsh=959) 38 ng/mL 5-275 HEPATITIS B SURFACE [id number] 15:30:00 Test Item Value Reference Range Comments HEPATITIS B SURFACE ANTIGEN (2) (BEAKER) (test Nonreactive Nonreactive cyca=3855) HEPATITIS C [id number] 15:30:00 Test Item Value Reference Range Comments HEPATITIS C ANTIBODY (BEAKER) (test hshh=548) Nonreactive Nonreactive IRON, TIBC, % SAT. (WITHOUT FERRITIN)2017-11-06 15:26:00 Test Item Value Reference Range Comments IRON (BEAKER) (test seku=989) 66 ug/dL 40-160 TOTAL IRON BINDING CAPACITY (BEAKER) (test 300 ug/dL 250-450 gine=386) IRON % SATURATION (2) (BEAKER) (test hovl=2944) 22 % 20-55 COMPREHENSIVE METABOLIC [id number] 15:24:00 Test Item Value Reference Range Comments TOTAL PROTEIN (BEAKER) 7.2 gm/dL 6.0-8.3 Specimen slightly (test bnmd=348) hemolyzed ALBUMIN (BEAKER) (test 3.6 g/dL 3.5-5.0 Specimen slightly xyho=4882) hemolyzed ALKALINE PHOSPHATASE 108 U/L 40-150 (BEAKER) (test ityh=787) BILIRUBIN TOTAL (BEAKER) 1.2 mg/dL 0.2-1.2 Specimen slightly (test ayss=834) hemolyzed SODIUM (BEAKER) (test 139 meq/L 136-145 oxjw=924) POTASSIUM (BEAKER) (test 4.1 meq/L 3.5-5.1 Specimen slightly stzu=882) hemolyzed CHLORIDE (BEAKER) (test 104 meq/L 98-107 gueh=592) CO2 (BEAKER) (test 23 meq/L 22-29 cbmt=510) BLOOD UREA NITROGEN 13 mg/dL 7-21 (BEAKER) (test rqsb=000) CREATININE (BEAKER) (test 0.71 mg/dL 0.57-1.25 Specimen slightly jlga=369) hemolyzed GLUCOSE RANDOM (BEAKER) 115 mg/dL 70-105 (test oilf=667) CALCIUM (BEAKER) (test 9.0 mg/dL 8.4-10.2 zsav=869) AST (SGOT) (BEAKER) (test 51 U/L 5-34 Specimen slightly qahs=138) hemolyzed ALT (SGPT) (BEAKER) (test 53 U/L 6-55 Specimen slightly rfkp=760) hemolyzed EGFR (BEAKER) (test 112 mL/min/1.73 sq ESTIMATED GFR IS NOT knfk=4541) m ACCURATE CREATININE CLEARANCE IN PREDICTING GLOMERULAR FILTRATION RATE. ESTIMATED GFR IS NOT APPLICABLE FOR DIALYSIS PATIENTS. BILIRUBIN, [id number] 15:24:00 Test Item Value Reference Range Comments BILIRUBIN DIRECT (BEAKER) (test 0.4 mg/dL 0.1-0.5 Specimen slightly hemolyzed fjxr=900) [id number] 15:15:00 Test Item Value Reference Range Comments ALPHA-1 ANTITRYPSIN (BEAKER) 136.30 mg/dL 90.00-200.00 Specimen slightly hemolyzed (test mysb=998) PROTHROMBIN [id number] 14:53:00 Test Item Value Reference Range Comments PROTIME (BEAKER) (test yxvg=500) 16.7 seconds 11.7-14.7 INR (BEAKER) (test xnbz=747) 1.4 <=5.9 RECOMMENDED COUMADIN/WARFARIN INR THERAPY RANGESSTANDARD DOSE: 2.0 - 3.0 Includes: PROPHYLAXIS forvenous thrombosis, systemic embolization; TREATMENT for venous thrombosis and/or pulmonary embolus.HIGH RISK: Target INR is 2.5-3.5 for patients with mechanical heart valves.CBC W/PLT COUNT & AUTO [id number] 14:43:00 Test Item Value Reference Range Comments WHITE BLOOD CELL COUNT (BEAKER) (test xbdu=435) 4.5 K/ L 3.5-10.5 RED BLOOD CELL COUNT (BEAKER) (test juir=092) 4.54 M/ L 4.63-6.08 HEMOGLOBIN (BEAKER) (test myxf=828) 14.9 GM/DL 13.7-17.5 HEMATOCRIT (BEAKER) (test uatw=949) 44.0 % 40.1-51.0 MEAN CORPUSCULAR VOLUME (BEAKER) (test kdir=286) 96.9 fL 79.0-92.2 MEAN CORPUSCULAR HEMOGLOBIN (BEAKER) (test 32.8 pg 25.7-32.2 jjhm=884) MEAN CORPUSCULAR HEMOGLOBIN CONC (BEAKER) (test 33.9 GM/DL 32.3-36.5 vhli=031) RED CELL DISTRIBUTION WIDTH (BEAKER) (test 14.0 % 11.6-14.4 posv=287) PLATELET COUNT (BEAKER) (test ewsx=190) 115 K/CU MM 150-450 MEAN PLATELET VOLUME (BEAKER) (test sfpe=360) 10.8 fL 9.4-12.4 NUCLEATED RED BLOOD CELLS (BEAKER) (test 0 /100 WBC 0-0 zjvk=175) NEUTROPHILS RELATIVE PERCENT (BEAKER) (test 52 % dute=059) LYMPHOCYTES RELATIVE PERCENT (BEAKER) (test 32 % qnif=333) MONOCYTES RELATIVE PERCENT (BEAKER) (test 10 % ixna=010) EOSINOPHILS RELATIVE PERCENT (BEAKER) (test 4 % ecbs=249) BASOPHILS RELATIVE PERCENT (BEAKER) (test 1 % pmrq=233) NEUTROPHILS ABSOLUTE COUNT (BEAKER) (test 2.35 K/ L 1.78-5.38 xgrq=195) LYMPHOCYTES ABSOLUTE COUNT (BEAKER) (test 1.45 K/ L 1.32-3.57 lrnv=666) MONOCYTES ABSOLUTE COUNT (BEAKER) (test 0.46 K/ L 0.30-0.82 hwzy=518) EOSINOPHILS ABSOLUTE COUNT (BEAKER) (test 0.20 K/ L 0.04-0.54 eode=724) BASOPHILS ABSOLUTE COUNT (BEAKER) (test 0.03 K/ L 0.01-0.08 ozhl=866) IMMATURE GRANULOCYTES-RELATIVE PERCENT (BEAKER) 1 % 0-1 (test uiiu=5505) GLUCOMETER GLUCOSE- LAB USE [id number] 10:45:00 Test Item Value Reference Range Comments GLUCOMETER (test code=GMG) 115 mg/dL 70-100 OVA AND PARASITE [id number] 14:14:00 Test Item Value Reference Range Comments DIRECT SMEAR - O\T\P No ova or parasites seen No ova or parasites seen (BEAKER) (test vlli=361) CONCENTRATE SMEAR - O\T\P No ova or parasites seen No ova or parasites seen (BEAKER) (test icaq=691) TRICHROME SMEAR - O\T\P No ova or parasites seen No ova or parasites seen (BEAKER) (test tawm=732) STOOL CULTURE + SHIGA [id number] 10:33:00 Test Item Value Reference Range Comments CULTURE ([facility]) (test No Salmonella, Shigella or oaci=6256) Campylobacter isolated POCT-GLUCOSE [id number] 14:56:00 Test Item Value Reference Range Comments POC-GLUCOSE METER ([facility]) 223 mg/dL 70-110 TESTED AT [address] (test ncxb=0538) [place] [id number] 06:26:00 Test Item Value Reference Range Comments D-DIMER QUANTITATIVE ([facility]) (test jwhj=581) 2.32 MG/L FEU <0.50 REGARDING D-DIMER RESULTS: The 98% NPV (Negative Predictive Value) for DVT/PE exclusion is 0.50 mg/LFEU as suggested by the roofer helper and as approved by the FDA.POCT-GLUCOSE [id number] 06:11:00 Test Item Value Reference Range Comments POC-GLUCOSE METER ([facility]) 182 mg/dL 70-110 TESTED AT [address] (test pyjw=1421) [facility] [place] [address] CBC W/PLT COUNT & AUTO [id number] 05:42:00 Test Item Value Reference Range Comments WHITE BLOOD CELL COUNT ([facility]) (test gmfx=942) 3.3 K/ L 4.0-10.0 RED BLOOD CELL COUNT ([facility]) (test ptwg=321) 4.43 M/ L 4.20-5.80 HEMOGLOBIN ([facility]) (test gjxy=032) 14.4 GM/DL 13.0-16.8 HEMATOCRIT ([facility]) (test dgdi=418) 42.1 % 40.0-50.0 MEAN CORPUSCULAR VOLUME (BEAKER) (test szou=996) 95.0 fL 82.0-98.0 MEAN CORPUSCULAR HEMOGLOBIN (BEAKER) (test 32.4 pg 27.0-33.0 kfik=543) MEAN CORPUSCULAR HEMOGLOBIN CONC (BEAKER) (test 34.1 GM/DL 32.0-36.0 nwqw=126) RED CELL DISTRIBUTION WIDTH (BEAKER) (test 15.3 % 10.3-14.2 pfpp=422) PLATELET COUNT (BEAKER) (test zbiq=989) 112 K/CU MM 150-430 MEAN PLATELET VOLUME (BEAKER) (test twje=590) 8.0 fL 6.5-10.5 NUCLEATED RED BLOOD CELLS (BEAKER) (test 0 /100 WBC 0-0 taxm=405) NEUTROPHILS RELATIVE PERCENT (BEAKER) (test 47 % mbvs=059) LYMPHOCYTES RELATIVE PERCENT (BEAKER) (test 36 % daor=138) MONOCYTES RELATIVE PERCENT (BEAKER) (test 11 % zcjl=991) EOSINOPHILS RELATIVE PERCENT (BEAKER) (test 5 % otiw=154) BASOPHILS RELATIVE PERCENT (BEAKER) (test 0 % mvrq=564) NEUTROPHILS ABSOLUTE COUNT (BEAKER) (test 1.50 K/ L 1.80-8.00 qedv=175) LYMPHOCYTES ABSOLUTE COUNT (BEAKER) (test 1.20 K/ L 1.48-4.50 lfte=789) MONOCYTES ABSOLUTE COUNT (BEAKER) (test 0.30 K/ L 0.00-1.30 pwqp=994) EOSINOPHILS ABSOLUTE COUNT (BEAKER) (test 0.20 K/ L 0.00-0.50 ofkp=458) BASOPHILS ABSOLUTE COUNT (BEAKER) (test 0.00 K/ L 0.00-0.20 qucn=282) POCT-GLUCOSE [id number] 20:40:00 Test Item Value Reference Range Comments POC-GLUCOSE METER (BEAKER) 270 mg/dL 70-110 TESTED AT [address] (test nqnu=5699) [facility] [place] [address] POCT-GLUCOSE [id number] 16:31:00 Test Item Value Reference Range Comments POC-GLUCOSE METER (BEAKER) 216 mg/dL 70-110 TESTED AT [address] (test lmtl=0505) [facility] [address] SHIGA TOXIN [id number] 14:44:00 Test Item Value Reference Range Comments SHIGA TOXIN 1 (BEAKER) (test sigj=7699) Not detected Not detected SHIGA TOXIN 2 (BEAKER) (test yrgv=1396) Not detected Not detected STOOL PATH [id number] 14:44:00 Test Item Value Reference Range Comments PATHOGEN EXAM CHARGED (BEAKER) (test cclj=7870) Done CBC W/PLT COUNT & AUTO [id number] 14:18:00 Test Item Value Reference Range Comments WHITE BLOOD CELL COUNT (BEAKER) (test bmrh=030) 4.1 K/ L 4.0-10.0 RED BLOOD CELL COUNT (BEAKER) (test tdkq=757) 4.50 M/ L 4.20-5.80 HEMOGLOBIN (BEAKER) (test vest=096) 14.9 GM/DL 13.0-16.8 HEMATOCRIT (BEAKER) (test fzdf=639) 43.2 % 40.0-50.0 MEAN CORPUSCULAR VOLUME (BEAKER) (test pepa=041) 96.1 fL 82.0-98.0 MEAN CORPUSCULAR HEMOGLOBIN (BEAKER) (test 33.1 pg 27.0-33.0 qape=573) MEAN CORPUSCULAR HEMOGLOBIN CONC (BEAKER) (test 34.4 GM/DL 32.0-36.0 bxup=893) RED CELL DISTRIBUTION WIDTH (BEAKER) (test 15.3 % 10.3-14.2 youd=728) PLATELET COUNT (BEAKER) (test gcms=351) 115 K/CU MM 150-430 MEAN PLATELET VOLUME (BEAKER) (test wabh=527) 7.8 fL 6.5-10.5 NUCLEATED RED BLOOD CELLS (BEAKER) (test 0 /100 WBC 0-0 qlaj=536) NEUTROPHILS RELATIVE PERCENT (BEAKER) (test 65 % expc=637) LYMPHOCYTES RELATIVE PERCENT (BEAKER) (test 26 % choc=945) MONOCYTES RELATIVE PERCENT (BEAKER) (test 7 % mjjl=685) EOSINOPHILS RELATIVE PERCENT (BEAKER) (test 3 % xtjv=262) BASOPHILS RELATIVE PERCENT (BEAKER) (test 0 % xmxj=504) NEUTROPHILS ABSOLUTE COUNT (BEAKER) (test 2.70 K/ L 1.80-8.00 aine=009) LYMPHOCYTES ABSOLUTE COUNT (BEAKER) (test 1.10 K/ L 1.48-4.50 rxko=361) MONOCYTES ABSOLUTE COUNT (BEAKER) (test 0.30 K/ L 0.00-1.30 tiiz=610) EOSINOPHILS ABSOLUTE COUNT (BEAKER) (test 0.10 K/ L 0.00-0.50 dnir=798) BASOPHILS ABSOLUTE COUNT (BEAKER) (test 0.00 K/ L 0.00-0.20 rvnc=412) BASIC METABOLIC [id number] 14:18:00 Test Item Value Reference Range Comments SODIUM (BEAKER) (test 134 meq/L 135-148 oiqb=784) POTASSIUM (BEAKER) (test 4.1 meq/L 3.6-5.5 mhvd=886) CHLORIDE (BEAKER) (test 103 meq/L 98-106 qfft=995) CO2 (BEAKER) (test 21 meq/L 20-29 uyvf=799) BLOOD UREA NITROGEN 12 mg/dL 10-26 (BEAKER) (test ciyv=773) CREATININE (BEAKER) (test 0.80 mg/dL 0.50-1.20 vylc=600) GLUCOSE RANDOM (BEAKER) 293 mg/dL 70-110 (test xien=458) CALCIUM (BEAKER) (test 9.1 mg/dL 8.5-10.5 ktfj=678) EGFR (BEAKER) (test 97 mL/min/1.73 sq m ESTIMATED GFR IS NOT acti=8679) ACCURATE CREATININE CLEARANCE IN PREDICTING GLOMERULAR FILTRATION RATE. ESTIMATED GFR IS NOT APPLICABLE FOR DIALYSIS PATIENTS. [id number] 14:12:00 Test Item Value Reference Range Comments MAGNESIUM (BEAKER) (test arna=935) 2.4 mg/dL 1.5-3.0 POCT-GLUCOSE [id number] 13:06:00 Test Item Value Reference Range Comments POC-GLUCOSE METER (BEAKER) 247 mg/dL 70-110 TESTED AT [facility] [address] (test gpmw=4240) [facility] [address] LIPID [id number] 07:28:00 Test Item Value Reference Range Comments TRIGLYCERIDES (BEAKER) (test hntu=491) 134 mg/dL CHOLESTEROL (BEAKER) (test rcfa=627) 131 mg/dL HDL CHOLESTEROL (BEAKER) (test sjeb=792) 25 mg/dL LDL CHOLESTEROL CALCULATED (BEAKER) (test 79 mg/dL udxt=537) Triglyceride Reference Range: Low Risk <150 Borderline 150- 199 High Risk 200-499 Very High Risk >=500Cholesterol Reference Range: Low Risk <200 Borderline 200-239 High Risk > 240HDL Cholesterol Reference Range: Low Risk >=60 High Risk <40LDL Cholesterol Reference Range: Optimal <100 Near Optimal 100-129 Borderline 130-159 High 160-189 Very High >=190 Specimen slightly [id number] 07:17:00 Test Item Value Reference Range Comments LIPASE (BEAKER) (test yrmq=069) 16 U/L 6-51 Specimen slightly ictericCOMPREHENSIVE METABOLIC [id number] 07:16:00 Test Item Value Reference Range Comments TOTAL PROTEIN (BEAKER) 6.2 gm/dL 6.0-8.5 (test vmvv=356) ALBUMIN (BEAKER) (test 3.2 g/dL 3.5-5.0 nhql=0907) ALKALINE PHOSPHATASE 61 U/L 30-115 (BEAKER) (test ecuf=341) BILIRUBIN TOTAL (BEAKER) 1.9 mg/dL 0.1-1.2 (test badf=265) SODIUM (BEAKER) (test 137 meq/L 135-148 tzpz=494) POTASSIUM (BEAKER) (test 3.6 meq/L 3.6-5.5 pzrn=034) CHLORIDE (BEAKER) (test 104 meq/L 98-106 zixc=273) CO2 (BEAKER) (test 23 meq/L 20-29 wpel=978) BLOOD UREA NITROGEN 10 mg/dL 10-26 (BEAKER) (test vqxz=369) CREATININE (BEAKER) (test 0.70 mg/dL 0.50-1.20 xbld=659) GLUCOSE RANDOM (BEAKER) 126 mg/dL 70-110 (test kfuo=466) CALCIUM (BEAKER) (test 8.6 mg/dL 8.5-10.5 ylph=158) AST (SGOT) (BEAKER) (test 50 U/L 5-40 dsbt=572) ALT (SGPT) (BEAKER) (test 39 U/L 5-50 wqcu=716) EGFR (BEAKER) (test 114 mL/min/1.73 sq ESTIMATED GFR IS NOT nusf=2993) m ACCURATE CREATININE CLEARANCE IN PREDICTING GLOMERULAR FILTRATION RATE. ESTIMATED GFR IS NOT APPLICABLE FOR DIALYSIS PATIENTS. Specimen slightly ictericHEMOGLOBIN [id number] 07:14:00 Test Item Value Reference Range Comments HEMOGLOBIN A1C (BEAKER) (test yhdf=711) 8.1 % 4.3-6.1 [id number] 07:08:00 Test Item Value Reference Range Comments AMYLASE (BEAKER) (test dene=268) 76 U/L 30-110 Specimen slightly [id number] 07:07:00 Test Item Value Reference Range Comments MAGNESIUM (BEAKER) (test xjhl=761) 1.9 mg/dL 1.5-3.0 CBC W/PLT COUNT & AUTO [id number] 07:01:00 Test Item Value Reference Range Comments WHITE BLOOD CELL COUNT (BEAKER) (test zpfe=899) 3.4 K/ L 4.0-10.0 RED BLOOD CELL COUNT (BEAKER) (test mlhr=567) 4.29 M/ L 4.20-5.80 HEMOGLOBIN (BEAKER) (test agpp=849) 13.9 GM/DL 13.0-16.8 HEMATOCRIT (BEAKER) (test vpsx=001) 40.6 % 40.0-50.0 MEAN CORPUSCULAR VOLUME (BEAKER) (test wdzx=856) 94.6 fL 82.0-98.0 MEAN CORPUSCULAR HEMOGLOBIN (BEAKER) (test 32.5 pg 27.0-33.0 ebvq=286) MEAN CORPUSCULAR HEMOGLOBIN CONC (BEAKER) (test 34.3 GM/DL 32.0-36.0 rlas=582) RED CELL DISTRIBUTION WIDTH (BEAKER) (test 15.6 % 10.3-14.2 ghfx=586) PLATELET COUNT (BEAKER) (test uzxn=453) 99 K/CU MM 150-430 MEAN PLATELET VOLUME (BEAKER) (test bhag=908) 8.0 fL 6.5-10.5 NUCLEATED RED BLOOD CELLS (BEAKER) (test 0 /100 WBC 0-0 wdzt=386) NEUTROPHILS RELATIVE PERCENT (BEAKER) (test 49 % qodw=070) LYMPHOCYTES RELATIVE PERCENT (BEAKER) (test 37 % xkny=290) MONOCYTES RELATIVE PERCENT (BEAKER) (test 10 % owfy=979) EOSINOPHILS RELATIVE PERCENT (BEAKER) (test 4 % mhac=140) BASOPHILS RELATIVE PERCENT (BEAKER) (test 0 % wwhk=260) NEUTROPHILS ABSOLUTE COUNT (BEAKER) (test 1.70 K/ L 1.80-8.00 ueco=295) LYMPHOCYTES ABSOLUTE COUNT (BEAKER) (test 1.30 K/ L 1.48-4.50 mgqv=885) MONOCYTES ABSOLUTE COUNT (BEAKER) (test uood=465) 0.30 K/ L 0.00-1.30 EOSINOPHILS ABSOLUTE COUNT (BEAKER) (test 0.20 K/ L 0.00-0.50 secm=080) BASOPHILS ABSOLUTE COUNT (BEAKER) (test jsri=957) 0.00 K/ L 0.00-0.20 GLUCOMETER GLUCOSE- LAB USE [id number] 04:55:00 Test Item Value Reference Range Comments GLUCOMETER (test code=GMG) 139 mg/dL 70-100 GLUCOMETER GLUCOSE- LAB USE [id number] 04:55:00 Test Item Value Reference Range Comments GLUCOMETER (test code=GMG) 163 mg/dL 70-100
[2018-01-23 22:34] LABS: Absolute Lymphocytes (CBC) 1.9 K/uL (0.7-4.9); Absolute Monocytes 0.8 K/uL (0.1-1.3); Absolute Neutrophil 6.2 K/uL (1.8-8.0); Basophils % 0.6 % (0-1.3); Eosinophils % 3.2 % (0-4.4); Hematocrit 39.2 % (39.6-49.0); Lymphocytes % 20.3 % (15.3-44.8); MCH 34.1 pg (27.0-35.0); MCV 99.3 fL (80-100); MPV 7.9 fL (7.6-11.3); Monocytes % 8.6 % (3.3-12.3); RBC Red Blood Cell Count 3.95 M/uL (4.33-5.43)
--- NOTE | 2018-01-23 22:37 | EDPHYS ---
Physician Documentation [facility] Name: Keron Brizuela Age: 67 yrs Sex: Male : 1950 Arrival Date: 01/23/2018 Time: 21:43 Bed 24 Private MD: ED Physician Robert Ellis HPI: 01/23 22:30 This 67 yrs old Male presents to ER via EMS with complaints of GI Bleeding. erica 22:30 The patient presents to the emergency department vomiting blood, a moderate amount, erica bright red, with multiple such episodes. Onset: The symptoms/episode began/occurred just prior to arrival, today. Abdominal pain: none is appreciated. Modifying factors: The symptoms are alleviated by nothing, the symptoms are aggravated by nothing. Associated signs and symptoms: Pertinent positives: dizziness at rest, vomiting. Severity of symptoms: At their worst the symptoms were moderate in the emergency department the symptoms have improved moderately. The patient has experienced similar episodes in the past, a few times. Historical: - Allergies: 21:52 No Known Allergies; fc - Home Meds: 21:52 metformin 1,000 mg oral tab 1 tab 2 times per day [Active]; ranitidine HCl 150 mg Oral fc cap 1 cap 2 times per day [Active]; Eliquis 5 mg oral tab 1 tab 2 times per day [Active]; nadolol 40 mg oral tab 1 tab once daily [Active]; glipizide 5 mg oral tab 1 tab once daily [Active]; fenofibrate 135 mg Oral 1 cap once daily [Active]; Jardiance 25 mg oral tab 1 tab once daily [Active]; tamsulosin 0.4 mg oral cp24 1 cap once daily [Active]; Lantus 50 units Sub-Q daily [Active]; Centrum Silver 0.4-300-250 mg-mcg-mcg oral tab daily [Active]; - PMHx: 21:52 Cirrhosis; Varicies; Diabetes - IDDM; DVT; Hyperlipidemia; Hypertension; GERD; fc - PSHx: 21:52 Lobectomy; Cholecystectomy; Varicies banding; fc - Immunization history:: Last tetanus immunization: up to date. - Social history:: Smoking status: Patient/guardian denies using tobacco, Patient/guardian denies using alcohol. - Family history:: not pertinent. ROS: 22:30 Constitutional: Negative for fever, chills, and weight loss, Eyes: Negative for injury, erica pain, redness, and discharge, ENT: Negative for injury, pain, and discharge, Neck: Negative for injury, pain, and swelling, Cardiovascular: Negative for chest pain, palpitations, and edema, Respiratory: Negative for shortness of breath, cough, wheezing, and pleuritic chest pain, Back: Negative for injury and pain, : Negative for injury, bleeding, discharge, and swelling, MS/Extremity: Negative for injury and deformity, Neuro: Negative for headache, weakness, numbness, tingling, and seizure, Psych: Negative for depression, anxiety, suicide ideation, homicidal ideation, and hallucinations, Allergy/Immunology: Negative for hives, rash, and allergies, Endocrine: Negative for neck swelling, polydipsia, polyuria, polyphagia, and marked weight changes, Hematologic/Lymphatic: Negative for swollen nodes, abnormal bleeding, and unusual bruising. 22:30 Abdomen/GI: Positive for hematemesis. 22:30 Skin: Positive for pallor. Exam: 22:30 Constitutional: This is a well developed, well nourished patient who is awake, alert, erica and in no acute distress. Head/Face: Normocephalic, atraumatic. Eyes: Pupils equal round and reactive to light, extra-ocular motions intact. Lids and lashes normal. Conjunctiva and sclera are non-icteric and not injected. Cornea within normal limits. Periorbital areas with no swelling, redness, or edema. ENT: Nares patent. No nasal discharge, no septal abnormalities noted. Tympanic membranes are normal and external auditory canals are clear. Oropharynx with no redness, swelling, or masses, exudates, or evidence of obstruction, uvula midline. Mucous membranes moist. Neck: Trachea midline, no thyromegaly or masses palpated, and no cervical lymphadenopathy. Supple, full range of motion without nuchal rigidity, or vertebral point tenderness. No Meningismus. Chest/axilla: Normal chest wall appearance and motion. Nontender with no deformity. No lesions are appreciated. Cardiovascular: Regular rate and rhythm with a normal S1 and S2. No gallops, murmurs, or rubs. Normal PMI, no JVD. No pulse deficits. Respiratory: Lungs have equal breath sounds bilaterally, clear to auscultation and percussion. No rales, rhonchi or wheezes noted. No increased work of breathing, no retractions or nasal flaring. Abdomen/GI: Soft, non-tender, with normal bowel sounds. No distension or tympany. No guarding or rebound. No evidence of tenderness throughout. Back: No spinal tenderness. No costovertebral tenderness. Full range of motion. Male : Normal genitalia with no discharge or lesions. MS/ Extremity: Pulses equal, no cyanosis. Neurovascular intact. Full, normal range of motion. Neuro: Awake and alert, GCS 15, oriented to person, place, time, and situation. Cranial nerves II-XII grossly intact. Motor strength 5/5 in all extremities. Sensory grossly intact. Cerebellar exam normal. Normal gait. Psych: Awake, alert, with orientation to person, place and time. Behavior, mood, and affect are within normal limits. 22:30 Skin: Appearance: Color: pale, Temperature: normal temperature, Moisture: normal moisture, petechiae, not noted, ecchymosis, not noted. Vital Signs: 21:35 BP 100 / 50; Pulse 89; Resp 18; Temp 99.8(O); Pulse Ox 94% on R/A; Weight 108.86 kg (R); Height 6 ft. 2 in. (187.96 cm) (R); Pain 4/10; 23:42 BP 112 / 62; Pulse 78; Resp 20; Pulse Ox 95% on R/A; kr2 01/24 00:13 BP 113 / 66; Pulse 77; Resp 22; Pulse Ox 95% on R/A; kr2 00:50 Temp 98.2(O); kr2 01/23 21:35 Body Mass Index 30.81 (108.86 kg, 187.96 cm) MDM: 01/23 22:17 Patient medically screened. kb 22:37 Data reviewed: vital signs, nurses notes, lab test result(s), EKG, radiologic studies, erica plain films. 01/23 22:12 Order name: Amylase, Serum; Complete Time: 23: em1 01/23 22:12 Order name: Basic Metabolic Panel; Complete Time: : 1 01/23 22:12 Order name: CBC with Diff; Complete Time: 22:38 1 01/23 22:12 Order name: Creatinine for Radiology; Complete Time: 23: [facility] 01/23 22:12 Order name: Hepatic Function; Complete Time: 23:01 [facility] 01/23 22:12 Order name: Lipase; Complete Time: 23: [facility] 01/23 22:12 Order name: Urine Microscopic Only [facility] 01/23 22:12 Order name: TS; Complete Time: 23:27 [facility] 01/23 22:28 Order name: BNP; Complete Time: 23:03 [facility] 01/23 22:28 Order name: PT-INR; Complete Time: 23: [facility] 01/23 22:28 Order name: Ptt, Activated; Complete Time: 23: [facility] 01/23 22:12 Order name: IV Saline Lock; Complete Time: 22:28 [facility] 01/23 22:28 Order name: Troponin (emerg Dept Use Only); Complete Time: 23: [facility] 01/23 22:28 Order name: XRAY Chest (1 view) [facility] 01/23 22:28 Order name: EKG; Complete Time: 22:29 [facility] 01/23 22:34 Order name: Creatine Phosphokinase; Complete Time: 23:01 [facility] 01/23 22:34 Order name: CKMB Creatine Kinase MB; Complete Time: 23:01 [facility] 01/23 22:34 Order name: Magnesium; Complete Time: 23:01 [facility] 01/23 23:18 Order name: ABO/RH no charge; Complete Time: 23:27 [facility] 01/23 22:12 Order name: Labs collected and sent; Complete Time: 22:28 [facility] 01/23 22:12 Order name: Urine Dipstick-Ancillary (obtain specimen); Complete Time: 00:48 [facility] 01/23 22:28 Order name: Cardiac monitoring; Complete Time: 23:28 [facility] 01/23 22:28 Order name: EKG - Nurse/Tech; Complete Time: 00:23 [facility] 01/23 22:28 Order name: O2 Per Protocol; Complete Time: 23:28 [facility] 01/23 22:28 Order name: O2 Sat Monitoring; Complete Time: 23:28 [facility] 01/23 22:28 Order name: IV Saline Lock - Large Bore; Complete Time: 22:37 [facility] 01/23 22:29 Order name: NPO; Complete Time: 22:36 [facility] Administered Medications: 23:00 Drug: ProTONIX 80 mg Route: IVP; Site: right forearm; kr2 01/24 00:23 Follow up: Response: No adverse reaction kr2 01/23 23:00 Drug: ProTONIX 8 mg/hr Route: IV; Rate: 25 ml/hr; Site: right forearm; kr2 01/24 00:22 Follow up: Response: No adverse reaction; IV Status: Infusion continued upon transfer kr2 01/23 23:00 Drug: Rocephin - (cefTRIAXone) 1 grams Route: IVPB; Infused Over: 30 mins; Site: right kr2 wrist; 23:30 Follow up: Response: No adverse reaction; IV Status: Completed infusion kr2 23:05 Drug: Vitamin K1 10 mg Route: Sub-Q; Site: left upper arm; kr2 01/24 00:21 Follow up: Response: No adverse reaction 2 01/23 23:15 Drug: SandoSTATIN 50 mcg Route: IV; Rate: bolus; Site: left forearm; kr2 23:30 Follow up: Response: No adverse reaction; IV Status: Completed infusion kr2 23:26 Drug: SandoSTATIN 25 mcg/h Route: IV; Rate: calculated rate; Site: left forearm; kr2 01/24 00:22 Follow up: Response: No adverse reaction; IV Status: Infusion continued upon transfer 2 01/23 23:29 Drug: Zofran 4 mg Route: IVP; Site: left forearm; kr2 01/24 00:21 Follow up: Response: No adverse reaction; Nausea is decreased [facility] Disposition: 01/23/18 22:37 Transfer ordered to [facility]. Diagnosis are Other cirrhosis of liver, Gastrointestinal hemorrhage, unspecified, Esophageal varices, Esophageal varices with bleeding, Hypotension, Type 1 diabetes mellitus, Coagulation defect, unspecified - eliqus therapy, Anemia, unspecified. - Reason for transfer: Higher level of care. - Accepting physician is to [facility]. - Condition is Serious. - Problem is new. - Symptoms have improved. Signatures: Dispatcher [employer] iRna Mccollum, PROPERTY CARETAKER-C PROPERTY CARETAKER-Ckb Robert Ellis MD MD cha Chretien, Felicia, RN RN Jose Live Karey, RN RN kr2 Corrections: (The following items were deleted from the chart) 01/23 21:54 21:35 Immunization history: Last tetanus immunization: unknown, [facility] 21:54 21:35 Social history: Smoking status: Patient/guardian denies using tobacco, fc fc : 22:29 CKMB+C.LAB.BRZ ordered. EDMS EDMS 22:29 CREATINE PHOSPHOKINASE+C.LAB.BRZ ordered. EDMS EDMS 22:29 MAGNESIUM+C.LAB.BRZ ordered. EDMS EDMS
--- NOTE | 2018-01-23 22:37 | ER ---
Nurse's Notes [facility] Name: Keron Brizuela Age: 67 yrs Sex: Male : 1950 Arrival Date: 01/23/2018 Time: 21:43 Bed 24 Private MD: Diagnosis: Other cirrhosis of liver;Gastrointestinal hemorrhage, unspecified;Esophageal varices;Esophageal varices with bleeding;Hypotension;Type 1 diabetes mellitus;Coagulation defect, unspecified-eliqus therapy;Anemia, unspecified Presentation: 01/23 21:35 Presenting complaint: Patient states: that he started having abd distention and pain at approx 1930. He then started to vomit, it was dark at first and then turned bright red. Positive for nausea. Transition of care: patient was not received from another setting of care. Onset of symptoms was January 23, 2018 at 19:30. Initial Sepsis Screen: Does the patient meet any 2 criteria? HR > 90 bpm. Does the patient have a suspected source of infection? No. Patient's initial sepsis screen is negative. Care prior to arrival: Medication(s) given: Normal saline infusion, 100 ml zofran 4 mg, IV initiated. 20 GA, in the right forearm, Glucose check: 173. 21:35 Method Of Arrival: [facility] 21:35 Acuity: KARI 2 21:56 Presenting complaint: states: that pt is currently on Keflex for foot injury that he had a few days ago. Historical: - Allergies: 21:52 No Known Allergies; - Home Meds: 21:52 metformin 1,000 mg oral tab 1 tab 2 times per day [Active]; ranitidine HCl 150 mg Oral fc cap 1 cap 2 times per day [Active]; Eliquis 5 mg oral tab 1 tab 2 times per day [Active]; nadolol 40 mg oral tab 1 tab once daily [Active]; glipizide 5 mg oral tab 1 tab once daily [Active]; fenofibrate 135 mg Oral 1 cap once daily [Active]; Jardiance 25 mg oral tab 1 tab once daily [Active]; tamsulosin 0.4 mg oral cp24 1 cap once daily [Active]; Lantus 50 units Sub-Q daily [Active]; Centrum Silver 0.4-300-250 mg-mcg-mcg oral tab daily [Active]; - PMHx: 21:52 Cirrhosis; Varicies; Diabetes - IDDM; DVT; Hyperlipidemia; Hypertension; GERD; fc - PSHx: 21:52 Lobectomy; Cholecystectomy; Varicies banding; fc - Immunization history:: Last tetanus immunization: up to date. - Social history:: Smoking status: Patient/guardian denies using tobacco, Patient/guardian denies using alcohol. - Family history:: not pertinent. Screenin:47 Abuse screen: Denies threats or abuse. Nutritional screening: No deficits noted. fc Tuberculosis screening: No symptoms or risk factors identified. Fall Risk None identified. Assessment: 22:00 General: Appears in no apparent distress. uncomfortable, well groomed, well developed, kr2 well nourished, Behavior is calm, cooperative. Pain: Complains of pain in abdomen Pain does not radiate. Pain currently is 10 out of 10 on a pain scale. Quality of pain is described as aching, crampy, sharp, Pain began suddenly, Is continuous. Neuro: Level of Consciousness is awake, alert, obeys commands, Oriented to person, place, time, situation. Neuro: Reports dizziness. Cardiovascular: Capillary refill < 3 seconds in bilateral fingers Patient's skin is warm and dry. Cardiovascular: Reports. Respiratory: Airway is patent Respiratory effort is even, unlabored, Respiratory pattern is regular, symmetrical. GI: Abdomen is round non-distended. GI: Bowel sounds present X 4 quads. Reports bloody stool, nausea, vomiting, bloody vomit. : No signs and/or symptoms were reported regarding the genitourinary system. EENT: Oral mucosa is dry. Derm: Skin is intact, with poor turgor Skin is dry, Skin is pale, Skin temperature is warm. Musculoskeletal: Circulation, motion, and sensation intact. 23:00 Reassessment: Patient appears in no apparent distress at this time. Patient and/or kr2 family updated on plan of care and expected duration. Pain level reassessed. Patient is alert, oriented x 3, equal unlabored respirations, skin warm/dry/pink. Patient given cool wash cloth and mouth swabs. 01/24 00:12 Reassessment: Patient appears in no apparent distress at this time. Patient and/or kr2 family updated on plan of care and expected duration. Pain level reassessed. Patient is alert, oriented x 3, equal unlabored respirations, skin warm/dry/pink. Report called to [facility] receiving nurse ESTEBAN Ojeda. Transfer form signed by patient's spouse Patient states feeling better. Patient states symptoms have improved. Vital Signs: 01/23 21:35 BP 100 / 50; Pulse 89; Resp 18; Temp 99.8(O); Pulse Ox 94% on R/A; Weight 108.86 kg fc (R); Height 6 ft. 2 in. (187.96 cm) (R); Pain 4/10; 23:42 BP 112 / 62; Pulse 78; Resp 20; Pulse Ox 95% on R/A; kr2 01/24 00:13 BP 113 / 66; Pulse 77; Resp 22; Pulse Ox 95% on R/A; kr2 00:50 Temp 98.2(O); kr2 01/23 21:35 Body Mass Index 30.81 (108.86 kg, 187.96 cm) fc ED Course: 01/23 21:35 Arm band placed on Patient placed in an exam room, on a stretcher, on pulse oximetry. fc 21:43 Patient arrived in ED. fc 21:46 Triage completed. fc 21:47 Patient has correct armband on for positive identification. Bed in low position. Call fc light in reach. Side rails up X2. Pulse ox on. NIBP on. 21:47 Maintain EMS IV. Dressing intact. Good blood return noted. Site clean \T\ dry. Gauge \T\ fc site: 20 gauge to right forearm. 22:11 Veda Rincon RN is Primary Nurse. kr2 22:17 Rina Spears [facility]NP-C [facility]. kb 22:17 Ray Panchal MD is Attending Physician. kb 22:37 Robert Ellis MD is Attending Physician. erica 22:40 Radiology exam delayed due to PATIENT IN THE RESTROOM. kc2 22:45 Inserted saline lock: 20 gauge in left antecubital area, using aseptic technique. Blood kr2 collected. 23:44 XRAY Chest (1 view) In Process Unspecified. EDMS 23:47 X-ray completed. Portable x-ray completed in exam room. Patient tolerated procedure kw well. 01/24 00:14 No provider procedures requiring assistance completed. kr2 00:55 Patient transferred, IV remains in place. kr2 Administered Medications: 01/23 23:00 Drug: ProTONIX 80 mg Route: IVP; Site: right forearm; kr2 01/24 00:23 Follow up: Response: No adverse reaction kr2 01/23 23:00 Drug: ProTONIX 8 mg/hr Route: IV; Rate: 25 ml/hr; Site: right forearm; kr2 01/24 00:22 Follow up: Response: No adverse reaction; IV Status: Infusion continued upon transfer kr2 01/23 23:00 Drug: Rocephin - (cefTRIAXone) 1 grams Route: IVPB; Infused Over: 30 mins; Site: right kr2 wrist; 23:30 Follow up: Response: No adverse reaction; IV Status: Completed infusion kr2 23:05 Drug: Vitamin K1 10 mg Route: Sub-Q; Site: left upper arm; kr2 01/24 00:21 Follow up: Response: No adverse reaction kr2 01/23 23:15 Drug: SandoSTATIN 50 mcg Route: IV; Rate: bolus; Site: left forearm; kr2 23:30 Follow up: Response: No adverse reaction; IV Status: Completed infusion kr2 23:26 Drug: SandoSTATIN 25 mcg/h Route: IV; Rate: calculated rate; Site: left forearm; kr2 01/24 00:22 Follow up: Response: No adverse reaction; IV Status: Infusion continued upon transfer kr2 01/23 23:29 Drug: Zofran 4 mg Route: IVP; Site: left forearm; kr2 01/24 00:21 Follow up: Response: No adverse reaction; Nausea is decreased 2 Outcome: 01/23 22:37 ER care complete, transfer ordered by MD. maldonado 01/24 00:15 Condition: stable kr2 00:55 Transferred by ground EMS to [facility], Transfer form completed. kr2 00:55 Instructed on the need for transfer, Demonstrated understanding of instructions. 00:56 Patient left the ED. kr2 Signatures: Dispatcher [employer] EDRina Hernandez, DISPENSING OPERATOR-C DISPENSING OPERATOR-Robert Dai MD MD cha Chretien, Felicia, RN RN Miri Diaz Kelsie 2 Veda Rincon RN RN kr2 Corrections: (The following items were deleted from the chart) 01/23 21:54 21:35 Immunization history: Last tetanus immunization: unknown, [facility] 21:54 21:35 Social history: Smoking status: Patient/guardian denies using tobacco, [facility] 01/24 00:16 00:12 Reassessment: Patient appears in no apparent distress at this time. Patient kr2 and/or family updated on plan of care and expected duration. Pain level reassessed. Patient is alert, oriented x 3, equal unlabored respirations, skin warm/dry/pink. Patient states feeling better. Patient states symptoms have improved. kr2
[2018-01-23] MEDS ORDERED: NA CHLORIDE 0.9% 250 ML ONE (22:40)
[2018-01-23] MEDS ORDERED: VITAMIN K (ADULT) 10 MG/ML ONE (22:40)
[2018-01-23] MEDS ORDERED: PANTOPRAZOLE 40 MG INJ ONE (22:40)
[2018-01-23 22:41] LABS: Protime INR 1.3
[2018-01-23] MEDS ORDERED: OCTREOTIDE ACETATE 100 MCG/ML ONE ×2 (22:42→23:09)
[2018-01-23] MEDS ORDERED: CEFTRIAXONE/SWI 1gm 1 GM/10 ML SYR ONE (22:42)
[2018-01-23 22:47] LABS: Bicarbonate 27 mEq/L (21-31); Glucose Level 195 mg/dL (65-120); Lipase 22 U/L (22-51); Potassium 4.1 mEq/L (3.6-5.0); Sodium Level 135 mEq/L (135-145)
[2018-01-23 22:54] LABS: ALT/SGPT 51 IU/L (10-60); AST/SGOT 56 IU/L (10-42); Albumin 3.1 g/dL (3.2-5.5); Alkaline Phosphatase 69 IU/L (42-121); Amylase Level 54 U/L (28-100); BUN Blood Urea Nitrogen 23 mg/dL (6-20); Bilirubin Direct 0.2 mg/dL (0-0.2); Creatine Phosphokinase 47 IU/L (22-269)
[2018-01-23 22:56] LABS: CKMB Creatine Kinase MB 1.3 ng/ml (0.3-4.0)
[2018-01-23] MEDS ORDERED: NA CHLORIDE 0.9% 500 ML ONE (23:09)
[2018-01-24 01:52] LABS: Urine Bacteria <20 /HPF (NONE SEEN); Urine Culture Reflex Order NOT NEEDED
--- NOTE | 2018-01-24 08:17 | RAD REPORT ---
EXAM DESCRIPTION: RAD - Chest Single View - 01/23/2018 11:46 pm CLINICAL HISTORY: Cough, shortness of breath COMPARISON: None. FINDINGS: Portable technique limits examination quality. Emphysematous changes are present throughout the lungs. No focal infiltrate is detected. The heart is normal in size. Evidence of prior traumatic injury to the chest and clavicles. No acute fracture see n. IMPRESSION: COPD.
--- NOTE | 2018-01-24 10:20 | EKG ---
Test Date: 2018-01-23 Test Time: 23:52:50 Counter Weigher: JEFF MEASUREMENT RESULTS: Intervals: Rate: 79 CA: 176 QRSD: 116 QT: 424 QTc: 486 [place]: P: 63 CA: 176 QRS: -37 T: 43 INTERPRETIVE STATEMENTS: Normal sinus rhythm Left axis deviation Incomplete right bundle branch block cannot rule out Inferior infarct, age undetermined Abnormal ECG No previous ECG available for comparison Electronically Signed On 01-24-18 10:19:29 CDT by Marquez Pires
== END 2018-01-24 00:56 | disposition short-term general hospital (02) ==
LOC: ER 21:40
DX: K74.60 Unspecified cirrhosis of liver (principal); I85.01 Esophageal varices with bleeding; I95.9 Hypotension, unspecified; E10.9 Type 1 diabetes mellitus without complications; D68.9 Coagulation defect, unspecified; D64.9 Anemia, unspecified; I10 Essential (primary) hypertension; Z86.718 Personal history of other venous thrombosis and embolism; Z79.01 Long term (current) use of anticoagulants; Z79.4 Long term (current) use of insulin
CPT/HCPCS: 36415; 71045; 80048; 80076; 81015; 82150; 82550; 82553; 83690; 83735; 83880; 84484; 85025; 85610; 85730; 86850; 86900; 86901; 93005; 96372; 99285; C9113; J0696; J2354 ×2; J3430; 96365; 96367; 96368; 96375

== ENCOUNTER → 2018-07-24 | Day surgery (SDC) | payer OTHER, MEDICARE ==
--- OUTSIDE RECORDS SUMMARY | 2018-07-20 09:31 | XMS REPORT | Clinical Summary ---
:1950 Author Organization [facility] Address [address] [place] [address] Care Team Providers Name Role Phone Marjorie Perez FREIGHT CLERK-C Primary Care Provider Allergies Active Allergy Reactions Severity Noted Date Comments Temazepam Other (See Comments) 07/25/2017 Disorientation, hallucination, AMS Current Medications Prescription Sig. Disp. Refills Start Date End Date Status FOLIC Take 1 tablet Active ACID/MULTIVIT-MIN/LUT by mouth daily. EIN (CENTRUM SILVER ORAL) KRILL/OM3/DHA/EPA/OM6 Take 500 mg by Active /LIP/ASTX (KRILL OIL, mouth daily. OMEGA 3 AND 6, ORAL) FENOFIBRATE ORAL Take 135 mg by Active mouth daily. empagliflozin Take 25 mg by Active (JARDIANCE) 25 mg mouth daily. tablet NON FORMULARY Take 1 capsule Active by mouth daily. L-Theanine nadolol (CORGARD) 40 Take 40 mg by Active MG tablet mouth daily. insulin GLARGINE Inject 50 Units Active (LANTUS) 100 unit/mL under the skin injection (vial) daily. ranitidine (ZANTAC) Take 150 mg by Active 150 MG tablet mouth 2 (two) times a day. metFORMIN Take 1,500 mg Active (GLUCOPHAGE) 1,000 mg by mouth 2 tablet (two) times a day. glipiZIDE (GLUCOTROL) Take 5 mg by 01/28/2018 Discontinued 5 MG tablet mouth 2 (two) times a day before meals. metFORMIN Take 1,000 mg 01/28/2018 Discontinued (GLUCOPHAGE) 1,000 mg by mouth 2 tablet (two) times a day with meals. tamsulosin (FLOMAX) Take 0.4 mg by 02/06/2018 Discontinued 0.4 mg mouth daily. capsule,extended release 24hr apixaban (ELIQUIS) 5 Take by mouth 2 01/28/2018 Discontinued mg tablet (two) times a day. glipiZIDE (GLUCOTROL) Take 5 mg by 02/06/2018 Discontinued 5 MG tablet mouth. 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 On anticoagulant therapy 07/26/2017 Epigastric pain 07/26/2017 Splenomegaly 07/26/2017 Thrombocytopenia (HCC) 07/26/2017 Enteritis 07/25/2017 Encounters Date Type Specialty Care Team Description 05/08/20 [facility] [place], Esophageal varices without 18 Encounter Gama Shahid, bleeding, unspecified esophageal varices type 05/08/20 Procedure Pass Gastroenterology 18 05/08/20 Surgery Gastroenterology [place], EGD with polypectomy by arianna Salter, esophageal varices band ligation (x 3 bands) 05/04/20 Anesthesia Event Gastroenterology [facility], 18 Bertha Obrien NP 02/07/20 [facility] [place], 18 Encounter Gama Shahid MD 02/07/20 Documentation Gastroenterology [place], 18 Gama Shahid MD 02/07/20 Procedure Pass Gastroenterology 18 02/07/20 Surgery Gastroenterology [place], EGD with banding of Deon Shahid esophageal varices 02/02/20 Anesthesia Event Gastroenterology [place], 18 OLGA LIDIA Ball 01/25/20 [facility] Internal [facility], Hematemesis without nausea ( Primary Dx); 18 - Encounter Medicine Anne Acute upper GI bleed 01/29/20 MD Cabrera 18 Raheem Le DO 01/25/20 Procedure Pass Gastroenterology 18 01/25/20 Surgery Gastroenterology [place], ESOPHAGOGASTRODUODENOSCOPY 18 All [place] (EGD) 09/05/20 Procedure Pass Gastroenterology 17 07/25/20 Emergency General Internal [place], Enteritis (Primary Dx); 17 - Medicine Marquez Ibanez, Mesenteric thrombosis 07/26/20 Barbara Zapata MD after 07/19/2017 Social History Tobacco Use Types Packs/Day Years Used Date Former Smoker Cigarettes Quit: 07/25/2009 Smokeless Tobacco: Current User Chew Comments: Quit 8 years ago Alcohol Use Drinks/Week oz/Week Comments No Sex Assigned at Date Recorded Not on file Last Filed Vital Signs Vital Sign Reading Time Taken Blood Pressure 135/78 05/08/2018 11:30 AM CDT Pulse 60 05/08/2018 11:30 AM CDT Temperature 36.2 C (97.2 F) 05/08/2018 10:30 AM CDT Respiratory Rate 13 05/08/2018 11:30 AM CDT Oxygen Saturation 98% 05/08/2018 11:30 AM CDT Inhaled Oxygen Concentration - - Weight 108 kg (239 lb) 05/08/2018 8:44 AM CDT Height 188 cm (6' 2") 05/08/2018 8:44 AM CDT Body Mass Index 30.69 05/08/2018 8:44 AM CDT Plan of Treatment Health Maintenance Due Date Last Done Comments DIABETIC FOOT EXAM 1962 DIABETIC RETINAL EYE EXAM 1962 URINE MICROALBUMIN 1962 SHINGRIX VACCINE (#1) 2002 ZOSTER VACCINE 2012 PNEUMOCOCCAL POLYSACCHARIDE VACCINE AGE 65 AND OVER 2017 PNEUMOCOCCAL-13 2017 INFLUENZA VACCINE 04/25/2018 COLON CANCER SCREENING 07/25/2027 07/25/2017 Procedures Procedure Name Priority Date/Time Associated Comments Diagnosis SURGICAL PATHOLOGY REQUEST Routine 05/08/2018 Results for 11:00 AM CDT this procedure are in the results section. ECG 12-LEAD STAT 05/08/2018 Results for 10:56 AM CDT this procedure are in the results section. ESOPHAGOGASTRODUODENOSCOPY (EGD) 05/08/2018 Esophageal 9:35 AM CDT varices without bleeding, unspecified esophageal varices type POC GLUCOSE Routine 05/08/2018 Results for 8:40 AM CDT this procedure are in the results section. ESOPHAGOGASTRODUODENOSCOPY (EGD) 02/06/2018 Esophageal 11:00 AM CDT varices without bleeding, unspecified esophageal varices type POC GLUCOSE Routine 02/06/2018 Results for 9:48 AM CDT this procedure are in the results section. POC GLUCOSE Routine 01/28/2018 Results for 7:19 AM CDT this procedure are in the results section. POC GLUCOSE Routine 01/27/2018 Results for 10:46 PM CDT this procedure are in the results section. POC GLUCOSE Routine 01/27/2018 Results for 3:19 PM CDT this procedure are in the results section. POC GLUCOSE Routine 01/27/2018 Results for 11:54 AM CDT this procedure are in the results section. POC GLUCOSE Routine 01/27/2018 Results for 7:49 AM CDT this procedure are in the results section. ZZESTIMATED GFR Routine 01/27/2018 Results for 4:45 AM CDT this procedure are in the results section. HEMOGLOBIN A1C Routine 01/27/2018 Results for 4:45 AM CDT this procedure are in the results section. COMPREHENSIVE METABOLIC PANEL Routine 01/27/2018 Results for 4:45 AM CDT this procedure are in the results section. HC COMPLETE BLD COUNT W/AUTO Routine 01/27/2018 Results for DIFF 4:45 AM CDT this procedure are in the results section. POC GLUCOSE Routine 01/26/2018 Results for 4:59 PM CDT this procedure are in the results section. POC GLUCOSE Routine 01/26/2018 Results for 11:28 AM CDT this procedure are in the results section. POC GLUCOSE Routine 01/26/2018 Results for 7:35 AM CDT this procedure are in the results section. ALPHA FETOPROTEIN Routine 01/26/2018 Results for 4:00 AM CDT this procedure are in the results section. ZZESTIMATED GFR Routine 01/26/2018 Results for 4:00 AM CDT this procedure are in the results section. PHOSPHORUS LEVEL Routine 01/26/2018 Results for 4:00 AM CDT this procedure are in the results section. MAGNESIUM LEVEL Routine 01/26/2018 Results for 4:00 AM CDT this procedure are in the results section. COMPREHENSIVE METABOLIC PANEL Routine 01/26/2018 Results for 4:00 AM CDT this procedure are in the results section. HC COMPLETE BLD COUNT W/AUTO Routine 01/26/2018 Results for DIFF 3:54 AM CDT this procedure are in the results section. POC GLUCOSE Routine 01/26/2018 Results for 2:00 AM CDT this procedure are in the results section. POC GLUCOSE Routine 01/25/2018 Results for 9:22 PM CDT this procedure are in the results section. HEMOGLOBIN & HEMATOCRIT Timed 01/25/2018 Results for 6:31 PM CDT this procedure are in the results section. POC GLUCOSE Routine 01/25/2018 Results for 4:54 PM CDT this procedure are in the results section. POC GLUCOSE Routine 01/25/2018 Results for 12:36 PM CDT this procedure are in the results section. XR CHEST 1 VW PORTABLE STAT 01/25/2018 Results for 10:04 AM CDT this procedure are in the results section. HEPATIC FUNCTION PANEL Routine 01/25/2018 Results for 9:39 AM CDT this procedure are in the results section. POC GLUCOSE Routine 01/25/2018 Results for 8:57 AM CDT this procedure are in the results section. POC GLUCOSE Routine 01/25/2018 Results for 4:46 AM CDT this procedure are in the results section. IONIZED CALCIUM Routine 01/25/2018 Results for 4:20 AM CDT this procedure are in the results section. ZZESTIMATED GFR Routine 01/25/2018 Results for 4:20 AM CDT this procedure are in the results section. BASIC METABOLIC PANEL Routine 01/25/2018 Results for 4:20 AM CDT this procedure are in the results section. HC COMPLETE BLD COUNT W/AUTO Routine 01/25/2018 Results for DIFF 4:20 AM CDT this procedure are in the results section. POC GLUCOSE Routine 01/25/2018 Results for 12:33 AM CDT this procedure are in the results section. POC GLUCOSE Routine 01/24/2018 Results for 9:21 PM CDT this procedure are in the results section. LACTIC ACID LEVEL Routine 01/24/2018 Results for 7:23 PM CDT this procedure are in the results section. ZZESTIMATED GFR Routine 01/24/2018 Results for 7:23 PM CDT this procedure are in the results section. HC COMPLETE BLD COUNT W/AUTO Routine 01/24/2018 Results for DIFF 7:23 PM CDT this procedure are in the results section. BASIC METABOLIC PANEL Routine 01/24/2018 Results for 7:23 PM CDT this procedure are in the results section. US ABDOMINAL DOPPLER Routine 01/24/2018 Results for 6:25 PM CDT this procedure are in the results section. US ABDOMEN COMPLETE Routine 01/24/2018 Results for 6:25 PM CDT this procedure are in the results section. POC GLUCOSE Routine 01/24/2018 Results for 5:16 PM CDT this procedure are in the results section. POC GLUCOSE Routine 01/24/2018 Results for 12:51 PM CDT this procedure are in the results section. ECHOCARDIOGRAM 2D COMPLETE W Routine 01/24/2018 Results for MMODE SPECTRAL COLOR DOPPLER 12:17 PM CDT this procedure ([id number]) are in the results section. ESOPHAGOGASTRODUODENOSCOPY (EGD) 01/24/2018 Hematemesis 11:30 AM CDT without nausea XR CHEST 1 VW PORTABLE Routine 01/24/2018 Results for 10:19 AM CDT this procedure are in the results section. LACTIC ACID LEVEL STAT 01/24/2018 Results for 9:38 AM CDT this procedure are in the results section. TROPONIN STAT 01/24/2018 Results for 9:38 AM CDT this procedure are in the results section. ZZESTIMATED GFR STAT 01/24/2018 Results for 9:38 AM CDT this procedure are in the results section. BASIC METABOLIC PANEL STAT 01/24/2018 Results for 9:38 AM CDT this procedure are in the results section. HEMOGLOBIN & HEMATOCRIT Routine 01/24/2018 Results for 9:38 AM CDT this procedure are in the results section. GASTROINTESTINAL PANEL Routine 01/24/2018 Results for 9:38 AM CDT this procedure are in the results section. POC GLUCOSE Routine 01/24/2018 Results for 8:43 AM CDT this procedure are in the results section. POC GLUCOSE Routine 01/24/2018 Results for 4:59 AM CDT this procedure are in the results section. BETA HYDROXYBUTYRATE Routine 01/24/2018 Results for 4:55 AM CDT this procedure are in the results section. POTASSIUM LEVEL Routine 01/24/2018 Results for 4:55 AM CDT this procedure are in the results section. BILIRUBIN DIRECT Timed 01/24/2018 Results for 3:50 AM CDT this procedure are in the results section. ZZESTIMATED GFR Timed 01/24/2018 Results for 3:50 AM CDT this procedure are in the results section. TYPE AND SCREEN Routine 01/24/2018 Results for 3:50 AM CDT this procedure are in the results section. ALCOHOL LEVEL, BLOOD Timed 01/24/2018 Results for 3:50 AM CDT this procedure are in the results section. ACETAMINOPHEN LEVEL Timed 01/24/2018 Results for 3:50 AM CDT this procedure are in the results section. URINE DRUGS OF ABUSE SCREEN Timed 01/24/2018 Results for 3:50 AM CDT this procedure are in the results section. URINALYSIS SCREEN AND Timed 01/24/2018 Results for MICROSCOPY, WITH REFLEX TO 3:50 AM CDT this procedure CULTURE are in the results section. TROPONIN Timed 01/24/2018 Results for 3:50 AM CDT this procedure are in the results section. PHOSPHORUS LEVEL Timed 01/24/2018 Results for 3:50 AM CDT this procedure are in the results section. MAGNESIUM LEVEL Timed 01/24/2018 Results for 3:50 AM CDT this procedure are in the results section. LIPASE LEVEL Timed 01/24/2018 Results for 3:50 AM CDT this procedure are in the results section. LACTIC ACID LEVEL Timed 01/24/2018 Results for 3:50 AM CDT this procedure are in the results section. COMPREHENSIVE METABOLIC PANEL Timed 01/24/2018 Results for 3:50 AM CDT this procedure are in the results section. IONIZED CALCIUM Timed 01/24/2018 Results for 3:50 AM CDT this procedure are in the results section. VENOUS BLOOD GAS Routine 01/24/2018 Results for 3:50 AM CDT this procedure are in the results section. AMYLASE LEVEL Timed 01/24/2018 Results for 3:50 AM CDT this procedure are in the results section. HC COMPLETE BLD COUNT W/AUTO Timed 01/24/2018 Results for DIFF 3:50 AM CDT this procedure are in the results section. D-DIMER Timed 01/24/2018 Results for 3:50 AM CDT this procedure are in the results section. FIBRINOGEN Timed 01/24/2018 Results for 3:50 AM CDT this procedure are in the results section. PROTHROMBIN TIME WITH INR Timed 01/24/2018 Results for 3:50 AM CDT this procedure are in the results section. PARTIAL THROMBOPLASTIN TIME Timed 01/24/2018 Results for (PTT) 3:50 AM CDT this procedure are in the results section. URINE CULTURE Timed 01/24/2018 Results for 3:50 AM CDT this procedure are in the results section. ECG 12-LEAD STAT 01/24/2018 Results for 3:47 AM CDT this procedure are in the results section. POC GLUCOSE Routine 01/24/2018 Results for 2:17 AM CDT this procedure are in the results section. POC GLUCOSE Routine 07/26/2017 Results for 9:13 PM CDT this procedure are in the results section. PROTHROMBIN MUTATION, FACTOR II, Routine 07/26/2017 Results for BY PCR 6:00 PM CDT this procedure are in the results section. FACTOR V LEIDEN BY PCR Routine 07/26/2017 Results for 6:00 PM CDT this procedure are in the results section. FREE AND TOTAL PROTEIN S Routine 07/26/2017 Results for 5:00 PM CDT this procedure are in the results section. ALPHA FETOPROTEIN Routine 07/26/2017 Results for 5:00 PM CDT this procedure are in the results section. FUNCTIONAL PROTEIN S Routine 07/26/2017 Results for 5:00 PM CDT this procedure are in the results section. FUNCTIONAL PROTEIN C Routine 07/26/2017 Results for 5:00 PM CDT this procedure are in the results section. ANTITHROMBIN III LEVEL Routine 07/26/2017 Results for 5:00 PM CDT this procedure are in the results section. BETA-2 GLYCOPROTEIN 1 ANTIBODY, Routine 07/26/2017 Results for IGG AND IGM 5:00 PM CDT this procedure are in the results section. CARDIOLIPIN ANTIBODIES Routine 07/26/2017 Results for 5:00 PM CDT this procedure are in the results section. LUPUS ANTICOAGULANT PANEL Routine 07/26/2017 Results for 5:00 PM CDT this procedure are in the results section. KAYLYNN 2 MUTATION DETECTION BY PCR Routine 07/26/2017 Results for 5:00 PM CDT this procedure are in the results section. POC GLUCOSE Routine 07/26/2017 Results for 4:01 PM CDT this procedure are in the results section. POC GLUCOSE Routine 07/26/2017 Results for 7:38 AM CDT this procedure are in the results section. TROPONIN Routine 07/26/2017 Results for 5:30 AM CDT this procedure are in the results section. ZZESTIMATED GFR Routine 07/26/2017 Results for 5:30 AM CDT this procedure are in the results section. COMPREHENSIVE METABOLIC PANEL Routine 07/26/2017 Results for 5:30 AM CDT this procedure are in the results section. HC COMPLETE BLD COUNT W/AUTO Routine 07/26/2017 Results for DIFF 5:30 AM CDT this procedure are in the results section. PHOSPHORUS LEVEL Routine 07/26/2017 Results for 1:13 AM CDT this procedure are in the results section. IONIZED CALCIUM Routine 07/26/2017 Results for 1:13 AM CDT this procedure are in the results section. MAGNESIUM LEVEL Routine 07/26/2017 Results for 1:13 AM CDT this procedure are in the results section. POC GLUCOSE Routine 07/26/2017 Results for 12:11 AM CDT this procedure are in the results section. TROPONIN Timed 07/25/2017 Results for 9:13 PM CDT this procedure are in the results section. OCCULT BLOOD, STOOL Routine 07/25/2017 Results for 7:46 PM CDT this procedure are in the results section. CT ABDOMEN PELVIS W CONTRAST STAT 07/25/2017 Results for 7:09 PM CDT this procedure are in the results section. XR CHEST 2 VW STAT 07/25/2017 Results for 6:23 PM CDT this procedure are in the results section. URINALYSIS SCREEN AND Routine 07/25/2017 Results for MICROSCOPY, WITH REFLEX TO 5:55 PM CDT this procedure CULTURE are in the results section. URINE CULTURE Routine 07/25/2017 Results for 5:55 PM CDT this procedure are in the results section. ECG 12-LEAD STAT 07/25/2017 Results for 5:47 PM CDT this procedure are in the results section. ZZESTIMATED GFR STAT 07/25/2017 Results for 5:42 PM CDT this procedure are in the results section. COMPREHENSIVE METABOLIC PANEL STAT 07/25/2017 Results for 5:42 PM CDT this procedure are in the results section. B NATRIURETIC PEPTIDE STAT 07/25/2017 Results for 5:42 PM CDT this procedure are in the results section. TROPONIN STAT 07/25/2017 Results for 5:42 PM CDT this procedure are in the results section. CREATINE KINASE, TOTAL (CPK) STAT 07/25/2017 Results for 5:42 PM CDT this procedure are in the results section. LIPASE LEVEL STAT 07/25/2017 Results for 5:42 PM CDT this procedure are in the results section. AMYLASE LEVEL STAT 07/25/2017 Results for 5:42 PM CDT this procedure are in the results section. PARTIAL THROMBOPLASTIN TIME STAT 07/25/2017 Results for (PTT) 5:42 PM CDT this procedure are in the results section. PROTHROMBIN TIME WITH INR STAT 07/25/2017 Results for 5:42 PM CDT this procedure are in the results section. HC COMPLETE BLD COUNT W/AUTO STAT 07/25/2017 Results for DIFF 5:42 PM CDT this procedure are in the results section. after 07/19/2017 Results Surgical pathology request (05/08/2018 11:00 AM) [facility] DEPARTMENT OF PATHOLOGY AND GENOMIC MEDICINE Surgical pathology report See link below for PDF [facility] DEPARTMENT OF Lab Report PATHOLOGY AND GENOMIC MEDICINE Result status This is Final Report to [facility] DEPARTMENT OF [id number] PATHOLOGY AND GENOMIC MEDICINE Performing Organization Address City/[facility] [place]/[facility] Cent[facility]ode Phone Number [facility] DEPARTMENT OF PATHOLOGY [address] [place] [address] AND [employer] ECG 12 lead (05/08/2018 10:56 AM)Only the most recent of3 resultswithin the time period is included. Ventricular rate 62 [facility] Atrial rate 62 [facility] PA interval 198 [facility] QRSD interval 138 [facility] QT interval 478 [facility] QTC interval 485 [facility] P axis 1 54 [facility] QRS axis 1 56 [facility] T wave axis 59 [facility] EKG impression Normal sinus rhythm-Right bundle branch block-Abnormal ECG-In automated comparison with ECG of 24-JAN-2018 03:47,-QRS axis shifted right- Criteria for Inferior infarct are no longer present-Electronicall H MUSE y Signed By Atul Childers MD ([id number]) on 05/08/2018 11:15:44 AM Performing Organization Address City/[facility] [place]/[facility] Cent[facility]ode Phone Number [facility] MUSE [address] [place] [address] POC glucose (05/08/2018 8:40 AM)Only the most recent of27 resultswithin the time period is included. POC glucose 122 (H) 65 - 99 mg/dL [facility] DEPARTMENT OF PATHOLOGY AND Comment: GENOMIC MEDICINE No Action Needed Meter ID: [id number] Qc Analyst: Heber Zapata Performing Organization Address City/[facility] [place]/Zipcode Phone Number [facility] DEPARTMENT OF PATHOLOGY [address] [place] [address] AND GENOMIC MEDICINE Estimated GFR (01/27/2018 4:45 AM)Only the most recent of8 resultswithin the time period is included. GFR Non Af Amer >90 mL/min/1.73 m2 [facility] DEPARTMENT OF PATHOLOGY AND GENOMIC MEDICINE GFR Af Amer >90 mL/min/1.73 m2 [facility] DEPARTMENT OF Comment: PATHOLOGY AND GENOMIC Chronic kidney disease: <60 mL/min/1.73m2 MEDICINE Kidney failure: <15 mL/min/1.73m2 The estimated GFR is calculated from the IDMS-traceable Modification of Diet in Renal Disease Equation. The accuracy of the calculation is poor when the creatinine is normal. Calculated values >90 mL/min/1.73m2 are not reported. This equation has not been validated in children (<18 years), women, the elderly (>70 years), or ethnic groups other than Caucasians and Americans. Specimen Plasma specimen Performing Organization Address City/State/Zipcode Phone Number [facility] DEPARTMENT OF PATHOLOGY AND [address] [place] [address] [facility] CBC with platelet and differential (01/27/2018 4:45 AM)Only the most recent of7 resultswithin the time period is included. WBC 4.44 (L) 4.50 - 11.00 k/uL [facility] DEPARTMENT OF PATHOLOGY AND GENOMIC MEDICINE RBC 3.21 (L) 4.40 - 6.00 m/uL [facility] DEPARTMENT OF PATHOLOGY AND GENOMIC MEDICINE HGB 10.9 (L) 14.0 - 18.0 g/dL [facility] DEPARTMENT OF PATHOLOGY AND GENOMIC MEDICINE HCT 32.0 (L) 41.0 - 51.0 % [facility] DEPARTMENT OF PATHOLOGY AND GENOMIC MEDICINE MCV 99.7 82.0 - 100.0 fL [facility] DEPARTMENT OF PATHOLOGY AND GENOMIC MEDICINE MCH 34.0 27.0 - 34.0 pg [facility] DEPARTMENT OF PATHOLOGY AND GENOMIC MEDICINE MCHC 34.1 31.0 - 37.0 g/dL [facility] DEPARTMENT OF PATHOLOGY AND GENOMIC MEDICINE RDW - SD 49.9 37.0 - 55.0 fL [facility] DEPARTMENT OF PATHOLOGY AND GENOMIC MEDICINE MPV 9.9 8.8 - 13.2 fL [facility] DEPARTMENT OF PATHOLOGY AND GENOMIC MEDICINE Platelet count 117 (L) 150 - 400 k/uL [facility] DEPARTMENT OF PATHOLOGY AND GENOMIC MEDICINE Nucleated RBC 0.00 /100 WBC [facility] DEPARTMENT OF PATHOLOGY AND GENOMIC MEDICINE Neutrophils 50.3 39.0 - 69.0 % [facility] DEPARTMENT OF PATHOLOGY AND GENOMIC MEDICINE Lymphocytes 34.5 25.0 - 45.0 % [facility] DEPARTMENT OF PATHOLOGY AND GENOMIC MEDICINE Monocytes 9.9 0.0 - 10.0 % [facility] DEPARTMENT OF PATHOLOGY AND GENOMIC MEDICINE Eosinophils 4.1 0.0 - 5.0 % [facility] DEPARTMENT OF PATHOLOGY AND GENOMIC MEDICINE Basophils 0.7 0.0 - 1.0 % [facility] DEPARTMENT OF PATHOLOGY AND GENOMIC MEDICINE Immature granulocytes 0.5Comment: 0.0 - 1.0 % [facility] DEPARTMENT OF "Immature PATHOLOGY AND GENOMIC granulocytes" MEDICINE (promyelocytes, myelocytes, metamyelocytes) Specimen Blood Performing Organization Address City/[facility] [place]/Zipcode Phone Number [facility] DEPARTMENT OF PATHOLOGY AND [address] [place] [address] Hemoglobin A1c (01/27/2018 4:45 AM) Hemoglobin A1C 6.3 (H) 4.0 - 5.6 % [facility] DEPARTMENT OF PATHOLOGY Comment: [facility] HbA1c cutoffs for diagnosing diabetes: 4.0% - 5.6%=normal 5.7% - 6.4%=increased risk for diabetes (prediabetes) >=6.5%=diabetes Goals for glycemic control (ADA 2016) < 7.0%Target for non adults with diabetes. More or less stringent targets may be appropriate for individual patients. <7.5% Target for Children and adolescents with type 1 diabetes. Specimen Blood Performing Organization Address City/[facility] [place]/[facility] Cent[facility]ode Phone Number COMMUNITY [facility] AND [address] [place] [address] Comprehensive metabolic panel (01/27/2018 4:45 AM)Only the most recent of5 resultswithin the time period is included. Sodium 141 135 - 148 mEq/L [facility] DEPARTMENT OF PATHOLOGY AND GENOMIC MEDICINE Potassium 3.9 3.5 - 5.0 mEq/L [facility] DEPARTMENT OF PATHOLOGY AND GENOMIC MEDICINE Chloride 102 98 - 112 mEq/L [facility] DEPARTMENT OF PATHOLOGY AND GENOMIC MEDICINE CO2 27 24 - 31 mEq/L [facility] DEPARTMENT OF PATHOLOGY AND GENOMIC MEDICINE Anion gap 12 7 - 15 mEq/L [facility] DEPARTMENT OF Comment: PATHOLOGY AND GENOMIC Starting from December , anion gap calculation MEDICINE no longer incorporates potassium. Please note the change. BUN 10 8 - 23 mg/dL [facility] DEPARTMENT OF PATHOLOGY AND GENOMIC MEDICINE Creatinine 0.7 0.7 - 1.2 mg/dL [facility] DEPARTMENT OF PATHOLOGY AND GENOMIC MEDICINE Glucose 205 (H) 65 - 99 mg/dL [facility] DEPARTMENT OF PATHOLOGY AND GENOMIC MEDICINE Calcium 8.6 (L) 8.8 - 10.2 mg/dL [facility] DEPARTMENT OF PATHOLOGY AND GENOMIC MEDICINE Protein 5.9 (L) 6.3 - 8.3 g/dL [facility] DEPARTMENT OF Comment: PATHOLOGY AND GENOMIC 4.6-7.0 g/dL MEDICINE 1 week 4.4-7.6 g/dL 7 months-1year5.1-7.3 g/dL 1-2 years5.6-7.5 g/dL >3 years6.0-8.0 g/dL 18-150 6.3-8.3 g/dL Albumin 2.7 (L) 3.5 - 5.0 g/dL [facility] DEPARTMENT OF PATHOLOGY AND GENOMIC MEDICINE A/G ratio 0.8 0.7 - 3.8 [facility] DEPARTMENT OF PATHOLOGY AND GENOMIC MEDICINE Alkaline phosphatase 62 40 - 129 U/L [facility] DEPARTMENT OF PATHOLOGY AND GENOMIC MEDICINE AST 52 (H) 10 - 50 U/L [facility] DEPARTMENT OF PATHOLOGY AND GENOMIC MEDICINE ALT 53 (H) 5 - 50 U/L [facility] DEPARTMENT OF PATHOLOGY AND GENOMIC MEDICINE Total bilirubin 0.9 0.0 - 1.2 mg/dL [facility] DEPARTMENT OF PATHOLOGY AND GENOMIC [facility] Specimen Plasma specimen Performing Organization Address City/[facility] Phone Number [facility] DEPARTMENT OF PATHOLOGY AND [address] [place] [address] Alpha fetoprotein (01/26/2018 4:00 AM)Only the most recent of2 resultswithin the time period is included. Alpha fetoprotein 1.5 0.0 - 8.3 ng/mL [facility] DEPARTMENT OF Comment: PATHOLOGY AND GENOMIC The Padma 8000 AFP immunoassay was used. MEDICINE Results obtained with different assay methods or kits should not be used interchangeably and may be different. Specimen Serum Performing Organization Address City/[facility] Cent[facility]ode Phone Number [facility] DEPARTMENT OF PATHOLOGY AND [address] [place] [phone] [facility] Phosphorus level (01/26/2018 4:00 AM)Only the most recent of3 resultswithin the time period is included. Phosphorus 3.3 2.4 - 4.5 mg/dL [facility] DEPARTMENT OF PATHOLOGY AND GENOMIC MEDICINE Specimen Plasma specimen Performing Organization Address [facility] Centercotx Phone Number [facility] DEPARTMENT OF PATHOLOGY AND [address] [place] [address] Magnesium level (01/26/2018 4:00 AM)Only the most recent of3 resultswithin the time period is included. Magnesium 1.9 1.6 - 2.4 mg/dL [facility] DEPARTMENT OF PATHOLOGY AND GENOMIC MEDICINE Specimen Plasma specimen Performing Organization Address [facility] Cent[facility]ode Phone Number [facility] DEPARTMENT OF PATHOLOGY AND [address] [place] [phone] [place] [address] Hemoglobin & hematocrit (01/25/2018 6:31 PM)Only the most recent of2 resultswithin the time period is included. HGB 10.9 (L) 14.0 - 18.0 g/dL [facility] DEPARTMENT OF PATHOLOGY AND GENOMIC MEDICINE HCT 31.8 (L) 41.0 - 51.0 % [facility] DEPARTMENT OF PATHOLOGY AND GENOMIC MEDICINE Specimen Blood Performing Organization Address [facility]x Phone Number [facility] DEPARTMENT OF PATHOLOGY AND [address] [place] [phone] [place] [address] XR Chest 1 Vw Portable (01/25/2018 10:04 AM)Only the most recent of2 resultswithin the time period is included. Narrative Performed At PROCEDURE:XR CHEST 1 VW PORTABLE [facility] CLINICAL HISTORY:Chest Pain COMPARISON:January 24, 2018 TECHNIQUE: A single view of the chest was taken in the AP projection. The images were digitally labeled by the technologist. FINDINGS: No active pleural, parenchymal, or mediastinal abnormality is noted. Noacute abnormality is demonstrated of the visualized bones of the thorax. Old posttraumatic deformities demonstrated of both mid clavicles and right mid and lower ribs.. IMPRESSION: Interval improvement in the previously noted congestive cardiac failure. Noacute abnormality in the chest. [id number] Procedure Note Interface, Radiology Results Incoming - 01/25/2018 10:08 AM CDT PROCEDURE: XR CHEST 1 VW PORTABLE CLINICAL HISTORY: Chest Pain COMPARISON: January 24, 2018 TECHNIQUE: A single view of the chest was taken in the AP projection. The images were digitally labeled by the technologist. FINDINGS: No active pleural, parenchymal, or mediastinal abnormality is noted. No acute abnormality is demonstrated of the visualized bones of the thorax. Old posttraumatic deformities demonstrated of both mid clavicles and right mid and lower ribs.. IMPRESSION: Interval improvement in the previously noted congestive cardiac failure. No acute abnormality in the chest. [id number] Performing Organization Address City/[facility]/Zipcode Phone Number [facility] [address] [place] [phone] Hepatic function panel (01/25/2018 9:39 AM) Albumin 2.8 (L) 3.5 - 5.0 g/dL [facility] DEPARTMENT OF PATHOLOGY AND GENOMIC MEDICINE Total bilirubin 0.8 0.0 - 1.2 mg/dL [facility] DEPARTMENT OF PATHOLOGY AND GENOMIC MEDICINE Bilirubin direct 0.3 0.0 - 0.3 mg/dL [facility] DEPARTMENT OF PATHOLOGY AND GENOMIC MEDICINE Alkaline phosphatase 52 40 - 129 U/L [facility] DEPARTMENT OF PATHOLOGY AND GENOMIC MEDICINE Protein 6.0 (L) 6.3 - 8.3 g/dL [facility] DEPARTMENT OF Comment: PATHOLOGY AND GENOMIC [place] 4.6-7.0 g/dL MEDICINE 1 week 4.4-7.6 g/dL 7 months-1year5.1-7.3 g/dL 1-2 years5.6-7.5 g/dL >3 years6.0-8.0 g/dL 18-150 6.3-8.3 g/dL ALT 56 (H) 5 - 50 U/L [facility] DEPARTMENT OF PATHOLOGY AND GENOMIC MEDICINE AST 71 (H) 10 - 50 U/L [facility] DEPARTMENT OF PATHOLOGY AND GENOMIC MEDICINE Specimen Plasma specimen Performing Organization Address [facility] Phone Number [facility] DEPARTMENT PATHOLOGY AND [address] [place] [phone] [facility] Ionized calcium (01/25/2018 4:20 AM)Only the most recent of3 resultswithin the time period is included. pH 7.53 [facility] DEPARTMENT OF PATHOLOGY AND GENOMIC MEDICINE Ionized calcium 1.09 (L) 1.11 - 1.32 mmol/L [facility] DEPARTMENT OF PATHOLOGY AND GENOMIC MEDICINE Specimen Plasma specimen Performing Organization Address [facility]otx Phone Number [facility] DEPARTMENT [facility] AND [address] [place] [phone] [facility] MEDICINE Basic metabolic panel (01/25/2018 4:20 AM)Only the most recent of3 resultswithin the time period is included. Sodium 145 135 - 148 mEq/L [facility] DEPARTMENT OF PATHOLOGY AND GENOMIC MEDICINE Potassium 3.8 3.5 - 5.0 mEq/L [facility] DEPARTMENT OF PATHOLOGY AND GENOMIC MEDICINE Chloride 107 98 - 112 mEq/L [facility] DEPARTMENT OF PATHOLOGY AND GENOMIC MEDICINE CO2 27 24 - 31 mEq/L [facility] DEPARTMENT OF PATHOLOGY AND GENOMIC MEDICINE Anion gap 11 7 - 15 mEq/L [facility] DEPARTMENT OF PATHOLOGY Comment: AND [facility] Starting from December , anion gap calculation no longer incorporates potassium. Please note the change. BUN 25 (H) 8 - 23 mg/dL [facility] DEPARTMENT OF PATHOLOGY AND GENOMIC MEDICINE Creatinine 0.7 0.7 - 1.2 mg/dL [facility] DEPARTMENT OF PATHOLOGY AND GENOMIC MEDICINE Glucose 196 (H) 65 - 99 mg/dL [facility] DEPARTMENT OF PATHOLOGY AND GENOMIC MEDICINE Calcium 8.2 (L) 8.8 - 10.2 mg/dL [facility] DEPARTMENT OF PATHOLOGY AND GENOMIC MEDICINE Specimen Plasma specimen Performing Organization Address City/[facility]ode Phone Number [facility] DEPARTMENT OF PATHOLOGY AND [address] [place] [address] Lactic acid level (01/24/2018 7:23 PM)Only the most recent of3 resultswithin the time period is included. Lactic acid 1.6 0.5 - 2.2 mmol/L [facility] DEPARTMENT OF PATHOLOGY AND GENOMIC MEDICINE Specimen Plasma specimen Performing Organization Address City/[facility]ode Phone Number [facility] DEPARTMENT OF PATHOLOGY AND [address] [place] [address] [place] Abdominal Doppler (01/24/2018 6:25 PM) Narrative Performed At EXAM:US ABDOMINAL DOPPLER [facility] CLINICAL HISTORY:portal vein thrombosiscirrhosis TECHNIQUE: Richards scale, color Doppler and spectral waveform analysis of the hepatic vasculature. COMPARISON:Ultrasound abdomen performed concurrently IMPRESSION: PORTAL VEIN:Main portal vein measures 11 mm, within normal limits.Main, right and left portal veins are patent with appropriate hepatopedal flow.Waveforms are normal.The peak flow velocity in the main portal vein is 11 cm/s. HEPATIC VEINS:The middle, right and left hepatic veins and IVC are patent and demonstrate acceptable waveforms. HEPATIC ARTERIES:The right and left hepatic arteries are identified with appropriate waveforms. SPLENIC ARTERY AND VEIN AND SMV:Splenic artery and vein and SMV are identified and are patent. [facility]-[id number] Procedure Note Hm Interface, Radiology Results Incoming - 01/24/2018 11:37 PM CDT EXAM: US ABDOMINAL DOPPLER CLINICAL HISTORY: portal vein thrombosis cirrhosis TECHNIQUE: Richards scale, color Doppler and spectral waveform analysis of the hepatic vasculature. COMPARISON: Ultrasound abdomen performed concurrently IMPRESSION: PORTAL VEIN: Main portal vein measures 11 mm, within normal limits. Main, right and left portal veins are patent with appropriate hepatopedal flow. Waveforms are normal. The peak flow velocity in the main portal vein is 11 cm/ s. HEPATIC VEINS: The middle, right and left hepatic veins and IVC are patent and demonstrate acceptable waveforms. HEPATIC ARTERIES: The right and left hepatic arteries are identified with appropriate waveforms. SPLENIC ARTERY AND VEIN AND SMV: Splenic artery and vein and SMV are identified and are patent. [facility]-[id number] Performing Organization Address City/State/Zipcode Phone Number [facility] [address] [place] [address] US Abdomen Complete (01/24/2018 6:25 PM) Narrative Performed At EXAM: US ABDOMEN COMPLETE [facility] CLINICAL HISTORY:CIRRHOSIS COMPARISON: CT, 07/25/2017 FINDINGS: Liver:The liver is diffusely heterogeneous in echogenicity and has a nodular contour consistent with cirrhosis. MPV:Doppler evaluation of the portal vein demonstrates normal hepatopedal flow. Main portal vein diameter 0.9 cm. Gallbladder:The gallbladder has been surgically removed. Gallbladder fossa is unremarkable. Bile ducts:Common bile duct measures 4.9 mm, within normal limits. No intrahepatic biliary dilatation. Pancreas:The visualized portions of the pancreas are within normal limits. Spleen:The spleen is homogeneous and enlarged measuring 17.6 cm. Right kidney:The right kidney is normal in size and echogenicity. The right kidney measures 13.6 cm. There is no evidence of mass, calculi, or hydronephrosis. Interpolar, exophytic right renal simple cyst measuring 1.4 x 1.1 x 1.3 cm (image 12,544). Left kidney:The left kidney is normal in size and echogenicity. The left kidney measures 14.0 cm. There is no evidence of mass, calculi, or hydronephrosis. Left renal lower pole simple cyst measuring 1.2 x 1.2 x 1.3 cm (image 22,016). Aorta:The visualized upper abdominal aorta demonstrates no evidence of ectasia or aneurysm. IVC:The visualized portions of the inferior vena cava are unremarkable. Ascites:No abnormal abdominal fluid collections are visualized. There is no evidence of ascites. Pleural effusion:There are no pleural effusions. Abdominal ultrasound measurement guidelines *Liver: Abnormal > 15.5 cm (craniocaudal dimension at the midclavicular line) *Spleen:Abnormal > 13 cm *GB: Abnormal > 9 x 4 cm (longitudinal and transverse dimensions) *Gallbladder wall thickness: Abnormal > 3 mm *CBD with GB: Abnormal > 6 mm (under 60 years of age. Allowed 1 additional millimeter per decade after 60) *CBD without GB: Abnormal > 10 mm *Kidneys: Abnormal < 9 cm or > 13 cm *Aorta: Ectatic if 2.5 - 2.9 cm *Aorta: Aneurysmal if > 3 cm *Portal vein: Abnormal > 1.3 cm (varying measurement dependent upon hydration status and respiration) IMPRESSION: 1.Hepatic cirrhosis. Splenomegaly. Small bilateral renal small cysts. [facility]-[id number] Procedure Note [facility], Radiology Results Incoming - 01/24/2018 11:36 PM CDT EXAM: US ABDOMEN COMPLETE CLINICAL HISTORY: CIRRHOSIS COMPARISON: CT, 07/25/2017 FINDINGS: Liver: The liver is diffusely heterogeneous in echogenicity and has a nodular contour consistent with cirrhosis. MPV: Doppler evaluation of the portal vein demonstrates normal hepatopedal flow. Main portal vein diameter 0.9 cm. Gallbladder: The gallbladder has been surgically removed. Gallbladder fossa is unremarkable. Bile ducts: Common bile duct measures 4.9 mm, within normal limits. No intrahepatic biliary dilatation. Pancreas: The visualized portions of the pancreas are within normal limits. Spleen: The spleen is homogeneous and enlarged measuring 17.6 cm. Right kidney: The right kidney is normal in size and echogenicity. The right kidney measures 13.6 cm. There is no evidence of mass, calculi, or hydronephrosis. Interpolar, exophytic right renal simple cyst measuring 1.4 x 1.1 x 1.3 cm (image 12,544). Left kidney: The left kidney is normal in size and echogenicity. The left kidney measures 14.0 cm. There is no evidence of mass, calculi, or hydronephrosis. Left renal lower pole simple cyst measuring 1.2 x 1.2 x 1.3 cm ( image 22,016). Aorta: The visualized upper abdominal aorta demonstrates no evidence of ectasia or aneurysm. IVC: The visualized portions of the inferior vena cava are unremarkable. Ascites: No abnormal abdominal fluid collections are visualized. There is no evidence of ascites. Pleural effusion: There are no pleural effusions. Abdominal ultrasound measurement guidelines * Liver: Abnormal > 15.5 cm (craniocaudal dimension at the midclavicular line) * Spleen: Abnormal > 13 cm * GB: Abnormal > 9 x 4 cm (longitudinal and transverse dimensions) * Gallbladder wall thickness: Abnormal > 3 mm * CBD with GB: Abnormal > 6 mm (under 60 years of age. Allowed 1 additional millimeter per decade after 60) * CBD without GB: Abnormal > 10 mm * Kidneys: Abnormal < 9 cm or > 13 cm * Aorta: Ectatic if 2.5 - 2.9 cm * Aorta: Aneurysmal if > 3 cm * Portal vein: Abnormal > 1.3 cm (varying measurement dependent upon hydration status and respiration) IMPRESSION: 1. Hepatic cirrhosis. Splenomegaly. Small bilateral renal small cysts. [facility]-[id number] Performing Organization Address City/State/Zipcode Phone Number [facility] [address] [place] [address] Echocardiogram complete w contrast and 3D if needed (01/24/2018 12:17 PM) Narrative Performed At [facility] Echocardiography Report [id number] [facility] [address]Name:KERON BRIZUELA [facility].ID:[id number] .Date: 01/24/2018Refer.MD:ANNE RAMÍREZ MD Exam Time: 10:40:00 AM Study Type:Routine Echo Height:74inWeight: 242lb BSA: 2.36 m2 DOBAge:1950,67Y Sex: MALEBP:130/67 HR:77 bpmSonogrphr: Pam Ortega RDCS Pat. Stat.:Inpatient Room:[facility] 201-03 Study Status:Final Echo Event ID:[id number] Order ID:[id number] Reason for Study:cirrhosis, evaulate cardiac function, TIPS evaluation Procedures:2D Echo, Colorflow Doppler, Portable Race:C FINDINGS: LV: LV size is normal. LV EF is hyperdynamic. Difficult to assessregional wall motion; however it appears grossly hyperdynamic. Estimated EF is >70%. RV: RV size is normal. RV systolic function is normal. LA: LA volume is mildly enlarged. RA: RA size is normal. AO: Aortic root diameter is normal. NADJA: No pericardial effusion. AV: Aortic valve not well seen. Mild aortic regurgitation. MV: Mild thickening and calcification of mitral leaflets. Mild mitralannular calcification. PV: Pulmonic valve not well seen. TV: No structural TV abnormalities noted. Terry: Unable to assess diastolic function. Other:Insufficient TR jet to estimate PA systolic pressure. MEASUREMENTS: DOPPLER LVOT Stroke Vol LVOT 2.3 cmLVOT CO9.6 l/min LVOT TVI29 cmLVOT CI4.1 l/m/m2 LVOT Tm318 [id number] bpm LVOT SV120.3 ml AV For Flow/Valve Assess AV pkVel 208.3 cm/s (100-170) AV ET280 msec AV mnVel 118.3 cm/Tom AC/ET 0.4 AV pkPG 17.4 mmHgAV TVI33.2 cm AV Mean G7.3 mmHgAVpkAcRt 2655.6 cm/s2 AV AC101 msec (83-118) 2D Parasternal [place] LVOT 2.3 cmLA Ds4.7 cm LVIDd5.8 cmIndex2.5 cm/m Ao Rtd 3.9 cm Index1.6 cm/m LVIDs2.9 cm LV Ihpm852.1 g(122-174) LV%fs 50.2 % LVM Index 98.4 g/m2 IVSd 0.9 cmRWT0.4 LVPWd1.1 cm LA Sng Plane LA Area 23.8 cm2(8.8-23.4) LA Vol87.5 ml Index37.1 ml/m LA LngAx 5.4 cm RA Sng Plane RA Area 16.1 cm2(8.3-19.5) RA Vol40.4 ml Index17.1 ml/m RA LngAx 5.3 cm Signed 01/24/2018 05:03 PM Wally Nolen M.D. Procedure Note Interface, Radiology Results In - 01/24/2018 5:03 PM CDT Echocardiography Report [id number] [place] [address] Pat.Name: KERON BRIZUELA Kylie.ID: [id number] .Date: 01/24/2018 Refer.MD: ANNE RAMÍREZ MD Exam Time: 10:40:00 AM Study Type:Routine Echo Height: 74in Weight: 242lb BSA: 2.36 m2 Age: 2 1950,67Y Sex: MALE BP: 130/67 HR: 77 bpm Sonogrphr: Pam Ortega RDCS Pat. Stat.:Inpatient Room: [place] [address] Study Status:Final Echo Event ID:[id number] Order ID: [id number] Reason for Study:cirrhosis, evaulate cardiac function, TIPS evaluation Procedures:2D Echo, Colorflow Doppler, Portable Race: C FINDINGS: LV: LV size is normal. LV EF is hyperdynamic. Difficult to assess regional wall motion; however it appears grossly hyperdynamic. Estimated EF is >70%. RV: RV size is normal. RV systolic function is normal. LA: LA volume is mildly enlarged. RA: RA size is normal. AO: Aortic root diameter is normal. NADJA: No pericardial effusion. AV: Aortic valve not well seen. Mild aortic regurgitation. MV: Mild thickening and calcification of mitral leaflets. Mild mitral annular calcification. PV: Pulmonic valve not well seen. TV: No structural TV abnormalities noted. Terry: Unable to assess diastolic function. Other: Insufficient TR jet to estimate PA systolic pressure. MEASUREMENTS: DOPPLER LVOT Stroke Vol LVOT 2.3 cm LVOT CO 9.6 l/min LVOT TVI 29 cm LVOT CI 4.1 l/m/m2 LVOT Tm 318 msec HR 80 bpm LVOT SV 120.3 ml AV For Flow/Valve Assess AV pkVel 208.3 cm/s (100-170) AV ET 280 msec AV mnVel 118.3 cm/s AV AC/ET 0.4 AV pkPG 17.4 mmHg AV TVI 33.2 cm AV Mean G 7.3 mmHg AVpkAcRt 2655.6 cm/s2 AV AC 101 msec (83-118) 2D Parasternal [place] LVOT 2.3 cm LA Ds 4.7 cm LVIDd 5.8 cm Index 2.5 cm/m Ao Rtd 3.9 cm Index 1.6 cm/m LVIDs 2.9 cm LV Mass 232.1 g (122-174) LV%fs 50.2 % LVM Index 98.4 g/m2 IVSd 0.9 cm RWT 0.4 LVPWd 1.1 cm LA Sng Plane LA Area 23.8 cm2 (8.8-23.4) LA Vol 87.5 ml Index 37.1 ml/m LA LngAx 5.4 cm RA Sng Plane RA Area 16.1 cm2 (8.3-19.5) RA Vol 40.4 ml Index 17.1 ml/m RA LngAx 5.3 cm Signed 01/24/2018 05:03 PM Wally Nolen M.D. Performing Organization Address City/State/Zipcode Phone Number [facility] [address] [place] [address] Gastrointestinal panel (01/24/2018 9:38 AM) Gastrointestinal panel Negative for all pathogens tested: [facility] DEPARTMENT OF Negative for Salmonella PATHOLOGY AND GENOMIC Negative for Campylobacter MEDICINE Negative for Diarrheagenic E coli/Shigella Negative for Shiga-like toxin-producing E coli Negative for Plesiomonas shigelloides Negative for Yersinia enterocolitica Negative for Vibrio species Negative for Clostridium difficile (Toxin A/B) Negative for Cryptosporidium Negative for Giardia lamblia Negative for Cyclospora cayeteanensis Negative for Entamoeba histolytica Negative for Adenovirus F 40/41 Negative for Astrovirus Negative for Norovirus GI/GII Negative for Rotavirus A Negative for Sapovirus Negative for Clostridium difficile toxin Negative for E coli 0157 This real-time PCR assay detects the presence of nucleic acids (RNA or DNA) for the gastrointestinal pathogens listed. A result of "Not-detected" does not exclude the possibility of the presence of one or more pathogens at concentrations less than the detectable limits of the assay. Comment: Specimen Information Specimen Source: Stool Specimen Site: Not otherwise specified Specimen Stool - Not otherwise specified Performing Organization Address [facility] Phone Number [facility] DEPARTMENT OF PATHOLOGY AND [address] [place] [address] Troponin (01/24/2018 9:38 AM)Only the most recent of5 resultswithin the time period is included. Troponin <0.30 0.00 - 0.30 ng/mL [facility] DEPARTMENT OF PATHOLOGY Comment: AND GENOMIC MEDICINE 0.30 - 1.49 ng/mlMay indicate increased risk of acute coronary syndrome. >=1.5 ng/mlConsistent with acute myocardial infarction. The diagnostic value of a single normal or non-diagnostic result is questionable.Serial samples at 2-6 hour intervals are required to rule out acute myocardial injury. Specimen Plasma specimen Performing Organization Address [facility] Phone Number [facility] DEPARTMENT OF PATHOLOGY AND [address] [place] [address] [facility] Beta hydroxybutyrate (01/24/2018 4:55 AM) Beta hydroxybutyrate 1.50 (H) 0.02 - 0.27 mmol/L [facility] DEPARTMENT OF PATHOLOGY AND [facility] Specimen Serum Performing Organization Address [facility] Phone Number [facility] DEPARTMENT OF PATHOLOGY AND [address] [place] [address] [facility] Potassium level (01/24/2018 4:55 AM) Potassium 5.6 (H) 3.5 - 5.0 mEq/L [facility] DEPARTMENT OF PATHOLOGY AND GENOMIC MEDICINE Specimen Plasma specimen Performing Organization Address City/[facility]/Zipcode Phone Number [facility] DEPARTMENT OF PATHOLOGY AND [address] [place] [address] [facility] Urinalysis screen and microscopy, with reflex to culture (01/24/2018 3:50 AM) Only the most recent of2 resultswithin the time period is included. Specimen site Clean catch [facility] DEPARTMENT OF PATHOLOGY AND GENOMIC MEDICINE Color, UA Straw [facility] DEPARTMENT OF PATHOLOGY AND GENOMIC MEDICINE Appearance, UA Clear [facility] DEPARTMENT OF PATHOLOGY AND GENOMIC MEDICINE Specific gravity, UA 1.028 1.001 - 1.035 [facility] DEPARTMENT OF PATHOLOGY AND GENOMIC MEDICINE pH, UA 7.0 5.0 - 8.5 [facility] DEPARTMENT OF PATHOLOGY AND GENOMIC MEDICINE Protein, UA Negative Negative [facility] DEPARTMENT OF PATHOLOGY AND GENOMIC MEDICINE Glucose, UA 3+ (A) Negative [facility] DEPARTMENT OF Comment: PATHOLOGY AND GENOMIC GLUKT results called to and read back by GRIS COOK/YENIFER at 06:33 MEDICINE 01/24/2018 by NIKO. Ketones, UA 1+ (A) Negative [facility] DEPARTMENT OF PATHOLOGY AND GENOMIC MEDICINE Bilirubin, UA Negative Negative [facility] DEPARTMENT OF PATHOLOGY AND GENOMIC MEDICINE Blood, UA Small (A) Negative [facility] DEPARTMENT OF PATHOLOGY AND GENOMIC MEDICINE Nitrite, UA Negative Negative [facility] DEPARTMENT OF PATHOLOGY AND GENOMIC MEDICINE Urobilinogen, UA <2.0 <2.0 [facility] DEPARTMENT OF PATHOLOGY AND GENOMIC MEDICINE Leukocyte esterase, UA Negative Negative [facility] DEPARTMENT OF PATHOLOGY AND GENOMIC MEDICINE Epithelial cells, UA <1 /HPF [facility] DEPARTMENT OF PATHOLOGY AND GENOMIC MEDICINE WBC, UA <1 0 - 1 /HPF [facility] DEPARTMENT OF PATHOLOGY AND GENOMIC MEDICINE RBC, UA 2 0 - 5 /HPF [facility] DEPARTMENT OF PATHOLOGY AND GENOMIC MEDICINE Bacteria, UA None seen None seen [facility] DEPARTMENT OF PATHOLOGY AND GENOMIC MEDICINE Yeast, UA None seen [facility] DEPARTMENT OF PATHOLOGY AND GENOMIC MEDICINE Yeast with pseudohyphae, None seen [facility] DEPARTMENT OF UA PATHOLOGY AND GENOMIC MEDICINE Specimen Urine Performing Organization Address City/State/Zipcode Phone Number [facility] DEPARTMENT OF PATHOLOGY AND [address] [place] [address] [facility] Urine drugs of abuse screen (01/24/2018 3:50 AM) Amphetamine screen, urine Negative [facility] DEPARTMENT OF PATHOLOGY AND GENOMIC MEDICINE Barbiturate screen, urine Negative [facility] DEPARTMENT OF PATHOLOGY AND GENOMIC MEDICINE Benzodiazepine screen, Negative [facility] DEPARTMENT OF urine PATHOLOGY AND GENOMIC MEDICINE Cannabinoid screen, urine Negative [facility] DEPARTMENT OF PATHOLOGY AND GENOMIC MEDICINE Cocaine screen, urine Negative [facility] DEPARTMENT OF PATHOLOGY AND GENOMIC MEDICINE Methadone metabolite Negative [facility] DEPARTMENT OF (EDDP), urine PATHOLOGY AND GENOMIC MEDICINE Opiates screen, urine Negative [facility] DEPARTMENT OF PATHOLOGY AND GENOMIC MEDICINE Oxycodone screen, urine Negative [facility] DEPARTMENT OF PATHOLOGY AND GENOMIC MEDICINE Phencyclidine screen, urine Negative [facility] DEPARTMENT OF PATHOLOGY AND GENOMIC MEDICINE Tricyclic screen, urine Negative [facility] DEPARTMENT OF Comment: PATHOLOGY AND GENOMIC Drug screen minimum concentration of detectability MEDICINE Bqioyfsfjawl1649 ng/mL Barbiturates 200 ng/mL Ttrvcpipptpmjyy524 ng/mL Xfgeqpt109 ng/mL Wgxevdjcw254 ng/mL Geqixcu325 ng/mL Frmltesef575 ng/mL Phencyclidine 25 ng/mL Ccsmsroaodpz51 ng/mL Tbfvmgclco2988 ng/mL Negative test results indicates presumptive evidence of lack of clinically significant drug concentration in this urine specimen. Positive test results are presumptive evidence of clinically significant drug concentration in this urine specimen. Testing performed for medical purposes only. Specimen Urine Performing Organization Address City/[facility] Phone Number [facility] DEPARTMENT OF PATHOLOGY AND [address] [place] [address] Partial thromboplastin time, activated (01/24/2018 3:50 AM)Only the most recent of2 resultswithin the time period is included. PTT 28.5 23.0 - 36.0 sec [facility] DEPARTMENT OF PATHOLOGY Comment: AND [facility] PTT therapeutic range for unfractionated heparin is 61.0-112.0 seconds which corresponds to Anti-Xa 0.3-0.7 U/ml. Specimen Blood Performing Organization Address [facility] Phone Number [facility] DEPARTMENT OF PATHOLOGY AND [address] [place] [address] Prothrombin time with INR (01/24/2018 3:50 AM)Only the most recent of2 resultswithin the time period is included. Prothrombin time 16.9 (H) 12.0 - 15.0 sec [facility] DEPARTMENT OF PATHOLOGY AND [facility] MEDICINE INR 1.4 [facility] DEPARTMENT OF Comment: PATHOLOGY AND GENOMIC The International Normalized Ratio (INR) is a therapeutic MEDICINE monitoring tool for patients who are stable on oral anticoagulant therapy. An INR of 2.0-3.0 is suggested for deep vein thrombosis/pulmonary embolism. Specimen Blood Performing Organization Address City/[facility]/Zipcode Phone Number [facility] DEPARTMENT OF PATHOLOGY AND [address] [place] [address] Fibrinogen (01/24/2018 3:50 AM) Fibrinogen 349 200 - 450 mg/dL [facility] DEPARTMENT OF PATHOLOGY AND GENOMIC MEDICINE Specimen Blood Performing Organization Address [facility] Phone Number [facility] DEPARTMENT OF PATHOLOGY AND [address] [place] [address] D-dimer (01/24/2018 3:50 AM) D-dimer 0.99 (H) 0.00 - 0.40 ug/mL FEU [facility] DEPARTMENT OF Comment: PATHOLOGY AND GENOMIC Units are ug/ml Fibrinogen Equivalent Unit. MEDICINE When combined with low clinical probability, D-dimer results of less than 0.5 ug/ml FEU have a good negativepredictive value in excluding PE or DVT. For D-dimer results greater than 0.5ug/ml FEU further testing is indicated if PE or DVT is suspectedclinically. Elevated D-dimer results have been reported in DVT, PE, and DIC cases and may indicate the presence of a clot. D-dimer results may be elevated due to old age, , inflammatory diseases, trauma, post-operative states, sepsis, and malignancies. Specimen Blood Performing Organization Address [facility] Phone Number [facility] DEPARTMENT OF PATHOLOGY AND [address] [place] [address] MEDICINE Type and screen (01/24/2018 3:50 AM) ABO grouping O [facility] DEPARTMENT OF PATHOLOGY AND GENOMIC MEDICINE Rh type NEG [facility] DEPARTMENT OF PATHOLOGY AND GENOMIC MEDICINE Antibody screen (gel) NEG [facility] DEPARTMENT OF PATHOLOGY AND GENOMIC MEDICINE Specimen Blood Performing Organization Address [facility]/Zipcode Phone Number [facility] DEPARTMENT OF PATHOLOGY AND [address] [place] [address] Urine culture (01/24/2018 3:50 AM)Only the most recent of2 resultswithin the time period is included. Urine culture SEE COMMENTComment: Bacteriuria [facility] DEPARTMENT OF PATHOLOGY screen negative. AND GENOMIC MEDICINE Performing Organization Address City/[facility]/Zipcode Phone Number [facility] DEPARTMENT OF PATHOLOGY AND [address] [place] [address] Lipase level (01/24/2018 3:50 AM)Only the most recent of2 resultswithin the time period is included. Lipase 23 13 - 60 U/L [facility] DEPARTMENT OF PATHOLOGY AND GENOMIC MEDICINE Specimen Blood Performing Organization Address City/[facility] Phone Number [facility] DEPARTMENT OF PATHOLOGY AND [address] [place] [address] Venous blood gas (01/24/2018 3:50 AM) pH, venous 7.36 7.32 - 7.42 [facility] DEPARTMENT OF PATHOLOGY AND GENOMIC MEDICINE pCO2, venous 42 (L) 45 - 51 mmHg [facility] DEPARTMENT OF PATHOLOGY AND GENOMIC MEDICINE pO2, venous 65 (H) 25 - 40 mmHg [facility] DEPARTMENT OF PATHOLOGY AND GENOMIC MEDICINE Base excess, venous -2 -2 - 2 meq/L [facility] DEPARTMENT OF PATHOLOGY AND GENOMIC MEDICINE O2 saturation, venous 91 (H) 40 - 70 % [facility] DEPARTMENT OF PATHOLOGY AND GENOMIC MEDICINE Bicarbonate, venous 23.1 21.0 - 28.0 mmol/L [facility] DEPARTMENT OF PATHOLOGY AND GENOMIC MEDICINE Specimen Blood Performing Organization Address [facility] Phone Number [facility] DEPARTMENT OF PATHOLOGY AND [address] [place] [address] Bilirubin direct (01/24/2018 3:50 AM) Bilirubin direct 0.3 0.0 - 0.3 mg/dL [facility] DEPARTMENT OF PATHOLOGY AND GENOMIC MEDICINE Specimen Blood Performing Organization Address [facility] Phone Number [facility] DEPARTMENT OF PATHOLOGY AND [address] [place] [address] Amylase level (01/24/2018 3:50 AM)Only the most recent of2 resultswithin the time period is included. Amylase 43 28 - 100 U/L [facility] DEPARTMENT OF PATHOLOGY AND GENOMIC MEDICINE Specimen Blood Performing Organization Address [facility] Phone Number [facility] DEPARTMENT OF PATHOLOGY AND [address] [place] [address] Alcohol level, blood (01/24/2018 3:50 AM) Alcohol None Detected mg/dL [facility] DEPARTMENT OF PATHOLOGY Comment: AND GENOMIC MEDICINE Normal None Detected Legal Intoxication in [place]80 mg/dL (0.08%) - Whole Blood Toxic Tgrpncpkdhdgf621 mg/dL (0.2%) Potentially Wsmsl488 - 500 mg/dL (0.35 - 0.5%) Alcohol percent None Detected % [facility] DEPARTMENT OF PATHOLOGY AND GENOMIC MEDICINE Specimen Blood Performing Organization Address City/[facility] Phone Number [facility] DEPARTMENT OF PATHOLOGY AND [address] [place] [address] Acetaminophen level (01/24/2018 3:50 AM) Acetaminophen level <15.0 10.0 - 30.0 ug/mL [facility] DEPARTMENT OF Comment: PATHOLOGY AND GENOMIC Therapeutic 10-30 ug/mL MEDICINE Possible Toxicity 150-200 ug/mL Probable Toxicity >200 ug/mL Specimen Blood Performing Organization Address City/[facility] Phone Number [facility] DEPARTMENT OF PATHOLOGY AND [address] [place] [address] Prothrombin mutation, factor II, by PCR (07/26/2017 6:00 PM) Prothrombin gene mutation Normal Normal [facility] DEPARTMENT OF PATHOLOGY AND GENOMIC MEDICINE Prothrombin gene mutation See link below for PDF [facility] DEPARTMENT OF Lab ReportComment: Case PATHOLOGY AND GENOMIC Number: [id number] MEDICINE Specimen Blood Performing Organization Address [facility] Phone Number [facility] DEPARTMENT OF PATHOLOGY AND [address] [place] [address] Factor V leiden by PCR (07/26/2017 6:00 PM) Factor V Leiden Normal [facility] DEPARTMENT OF PATHOLOGY AND GENOMIC MEDICINE Factor V Leiden See link below for PDF Lab [facility] DEPARTMENT OF PATHOLOGY AND ReportComment: Case Number: GENOMIC MEDICINE [id number] Specimen Blood Performing Organization Address [facility] Phone Number [facility] DEPARTMENT OF PATHOLOGY AND [address] [place] [address] KAYLYNN 2 mutation detection by PCR (07/26/2017 5:00 PM) KAYLYNN-2 mutation ID Not-Detected Not-Detected [facility] DEPARTMENT OF PATHOLOGY AND GENOMIC MEDICINE KAYLYNN-2 amplification Not-Detected Not-Detected [facility] DEPARTMENT OF PATHOLOGY AND GENOMIC MEDICINE KAYLYNN 2 mutation detection, See link below for [facility] DEPARTMENT OF PCR PDF Lab PATHOLOGY AND GENOMIC ReportComment: Case MEDICINE Number: [id number] Specimen Blood Performing Organization Address City/[facility] Phone Number [facility] DEPARTMENT OF PATHOLOGY AND [address] [place] [address] Free and total protein S (07/26/2017 5:00 PM) Protein S Ag, free 74 62 - 160 % [facility] DEPARTMENT OF PATHOLOGY AND GENOMIC MEDICINE Protein S Ag, total 94 71 - 150 % [facility] DEPARTMENT OF PATHOLOGY AND GENOMIC MEDICINE Specimen Blood Performing Organization Address City/[facility] Phone Number [facility] DEPARTMENT OF PATHOLOGY AND [address] [place] [address] GENOMIC MEDICINE Beta-2 glycoprotein 1 Abs, IgG & IgM (07/26/2017 5:00 PM) Beta-2 glycoprotein 1 0 0 - 20 [facility] antibody, IgG Beta-2 glycoprotein 1 1 0 - 20 [facility] antibody, IgM Comment: INTERPRETIVE INFORMATION: [id number] I, IgG and IgM Antibody The persistent [...] other criteria phospholipid antibody tests. Performed by [facility], [address], [place] [id number] [email or web address] - [place], Edilson Winslow MD - Lab. Director Specimen Serum Performing Organization Address City/[facility]/Zipcode Phone Number [facility] [address] [place] [address] Functional protein S (07/26/2017 5:00 PM) Functional protein S 55 (L) 74 - 160 % [facility] DEPARTMENT OF Comment: PATHOLOGY AND GENOMIC Functional Protein S performed.If result is decreased Total MEDICINE and Free Protein S Antigen will be performed. Specimen Blood Performing Organization Address City/[facility]/Zipcode Phone Number [facility] DEPARTMENT OF PATHOLOGY AND [address] [place] [address] [facility] Functional protein C (07/26/2017 5:00 PM) Functional protein C 61 (L) 70 - 165 % [facility] DEPARTMENT OF PATHOLOGY AND GENOMIC MEDICINE Specimen Blood Performing Organization Address [facility]/Zipcode Phone Number [facility] DEPARTMENT OF PATHOLOGY AND [address] [place] [address] [facility] Lupus anticoagulant panel (07/26/2017 5:00 PM) Prothrombin time 15.8 (H) 12.0 - 15.0 sec [facility] DEPARTMENT OF PATHOLOGY AND GENOMIC MEDICINE INR 1.2 [facility] DEPARTMENT OF Comment: PATHOLOGY AND The International Normalized Ratio (INR) is a therapeutic [facility] monitoring tool for patients who are stable on oral anticoagulant therapy. An INR of 2.0-3.0 is suggested for deep vein thrombosis/pulmonary embolism. PTT 38.3 (H) 23.0 - 36.0 sec [facility] DEPARTMENT OF Comment: PATHOLOGY AND PTT therapeutic range for unfractionated heparin is [facility] MEDICINE 61.0-112.0 seconds which corresponds to Anti-Xa 0.3-0.7 U/ml. PTT lupus anticoagulant 36.8 27.0 - 38.0 sec [facility] DEPARTMENT OF Comment: PATHOLOGY AND Lupus anticoagulant (LA) panel consists of PT, PTT, PTT-LA, GENOMIC MEDICINE and DRVVT. If the PTT-LA is above [...] diagnosis. DRVVT 30.7 29.0 - 46.0 sec [facility] DEPARTMENT OF PATHOLOGY AND [employer] MEDICINE Specimen Blood Performing Organization Address City/[facility]/Zipcode Phone Number [facility] DEPARTMENT OF PATHOLOGY [address] [place] [address] AND [facility] MEDICINE Cardiolipin antibodies (07/26/2017 5:00 PM) Cardiolipin IgG 1 0 - 14 GPL [facility] DEPARTMENT OF PATHOLOGY AND Comment: GENOMIC MEDICINE Negative=<15 GPL Indeterminate=15-20 GPL Positive=>20 GPL Cardiolipin IgM 6 0 - 12 MPL [facility] DEPARTMENT OF PATHOLOGY AND Comment: GENOMIC MEDICINE Negative=<13 MPL Indeterminate=13-20 MPL Positive=>20 MPL Specimen Blood Performing Organization Address [facility] Phone Number [facility] DEPARTMENT OF PATHOLOGY AND [address] [place] [address] [facility] Antithrombin III level (07/26/2017 5:00 PM) Antithrombin III 64 (L) 80 - 130 % [facility] DEPARTMENT OF PATHOLOGY Comment: AND [facility] MEDICINE Low Protein S, Protein C Activity, and Antithrombin Activity consistent with ongoing thrombosis. Repeat in 1 - 2 months. Reviewed by Specimen Blood Performing Organization Address [facility] Phone Number [facility] DEPARTMENT OF PATHOLOGY AND [address] [place] [address] [facility] Occult blood, stool (07/25/2017 7:46 PM) Occult blood, stool Negative for occult blood. [facility] DEPARTMENT OF Comment: PATHOLOGY AND GENOMIC Specimen Information MEDICINE Specimen Source: Rectal Swab Specimen Site: Nonpreserved Specimen Rectal swab - Nonpreserved Performing Organization Address City/[facility] Phone Number [facility] DEPARTMENT OF PATHOLOGY [address] [place] [address] Abdomen Pelvis W Contrast (07/25/2017 7:09 PM) Narrative Performed At EXAMINATION:CT ABDOMEN PELVIS W CONTRAST [facility] CLINICAL HISTORY:generalized abdominal pain TECHNIQUE: Multiple axial [...] 4.Severe vascular disease. Grossly patent mesenteric arteries. [facility]-[id number] Procedure Note [facility], Radiology Results Incoming - 07/25/2017 7:21 PM [...] Severe vascular disease. Grossly patent mesenteric arteries. [facility]-[id number] Performing Organization Address [facility] Phone Number [facility] [address] [place] [address] XR Chest 2 Vw (07/25/2017 6:23 PM) Narrative Performed At Examination:XR CHEST 2 VW [facility]IANT Clinical History: right sided posterior chest pain Comparison: None. Technique: Frontal and lateral views of the chest Impression: Lungs appear slightly hyperinflated. No focal consolidation or pleural effusion. Heart size and pulmonary vascularity grossly normal. Numerous old fracture deformities are seen in bilateral ribs and clavicles. [facility]-[id number] Procedure Note Hm Interface, Radiology Results Incoming - 07/25/2017 6:27 PM CDT Examination: XR CHEST 2 VW Clinical History: right sided posterior chest pain Comparison: None. Technique: Frontal and lateral views of the chest Impression: Lungs appear slightly hyperinflated. No focal consolidation or pleural effusion. Heart size and pulmonary vascularity grossly normal. Numerous old fracture deformities are seen in bilateral ribs and clavicles. [facility]-[id number] Performing Organization Address [facility] Phone Number [facility] [address] [place] [address] B natriuretic peptide (07/25/2017 5:42 PM) BNP 38 0 - 100 pg/mL [facility] DEPARTMENT OF PATHOLOGY AND GENOMIC MEDICINE Specimen Blood Performing Organization Address [facility] Phone Number [facility] DEPARTMENT OF PATHOLOGY [address] [facility] [place] [address] AND [facility] Creatine kinase, total (CPK) (07/25/2017 5:42 PM) Creatine kinase 52 39 - 308 U/L [facility] DEPARTMENT OF PATHOLOGY AND GENOMIC MEDICINE Specimen Plasma specimen Performing Organization Address [facility] Phone Number [facility] DEPARTMENT OF PATHOLOGY [address] [facility] [place] [address] AND [employer] MEDICINE after 07/19/2017 Insurance Payer Benefit Plan / Group Subscriber ID Type Phone Address MEDICARE MEDICARE PART A AND B xxxxxxxxxx Medicare [place], [place] AARP AARP SUPPLEMENT xxxxxxxxxxx Commercial 510 [phone] [place] [phone]
--- OUTSIDE RECORDS SUMMARY | 2018-07-20 09:32 | XMS REPORT ---
:1950 [facility] Hearn [address] [place] [id number] Care Team Providers Name Role Phone HÉCTOR, OLIMPIA Austin Unavailable Unavailable ANUSHA STACY Unavailable Unavailable KHRIS ECHOLS Unavailable Unavailable Problems This patient has no known problems. Allergies, Adverse Reactions, Alerts This patient has no known allergies or adverse reactions. Medications This patient has no known medications. Results Test Description Test Time Test Comments Text Results Atomic Results Result Comments ALPHA FETOPROTEIN (AFP), TUMOR MARKER 2018-06-15 15:44:00 Test Item Value Reference Range Comments ALPHA-FETOPROTEIN (BEAKER) (test xqsg=9267) < ng/mL <10.0 HEPATIC FUNCTION [id number] 15:25:00 Test Item Value Reference Range Comments TOTAL PROTEIN (BEAKER) (test zxlm=668) 7.2 gm/dL 6.0-8.3 ALBUMIN (BEAKER) (test umoa=7882) 3.8 g/dL 3.5-5.0 BILIRUBIN TOTAL (BEAKER) (test tejj=485) 1.3 mg/dL 0.2-1.2 BILIRUBIN DIRECT (BEAKER) (test ratf=027) 0.4 mg/dL 0.1-0.5 ALKALINE PHOSPHATASE (BEAKER) (test vayc=607) 86 U/L 40-150 AST (SGOT) (BEAKER) (test wfto=711) 47 U/L 5-34 ALT (SGPT) (BEAKER) (test bvma=827) 43 U/L 6-55 BASIC METABOLIC [id number] 15:25:00 Test Item Value Reference Range Comments SODIUM (BEAKER) (test 139 meq/L 136-145 dxto=558) POTASSIUM (BEAKER) (test 3.9 meq/L 3.5-5.1 fqep=432) CHLORIDE (BEAKER) (test 106 meq/L 98-107 alsa=414) CO2 (BEAKER) (test 25 meq/L 22-29 pmvr=031) BLOOD UREA NITROGEN 14 mg/dL 7-21 (BEAKER) (test kcoe=373) CREATININE (BEAKER) (test 0.72 mg/dL 0.57-1.25 fsox=386) GLUCOSE RANDOM (BEAKER) 157 mg/dL 70-105 (test kzgc=054) CALCIUM (BEAKER) (test 9.6 mg/dL 8.4-10.2 qgyt=735) EGFR (BEAKER) (test 110 mL/min/1.73 sq m ESTIMATED GFR IS NOT sdhk=1764) ACCURATE CREATININE CLEARANCE IN PREDICTING GLOMERULAR FILTRATION RATE. ESTIMATED GFR IS NOT APPLICABLE FOR DIALYSIS PATIENTS. PROTHROMBIN [id number] 15:16:00 Test Item Value Reference Range Comments PROTIME (BEAKER) (test gbgy=487) 15.9 seconds 11.7-14.7 INR (BEAKER) (test lsrn=381) 1.3 <=5.9 RECOMMENDED COUMADIN/WARFARIN INR THERAPY RANGESSTANDARD DOSE: 2.0 - 3.0 Includes: PROPHYLAXIS forvenous thrombosis, systemic embolization; TREATMENT for venous thrombosis and/or pulmonary embolus.HIGH RISK: Target INR is 2.5-3.5 for patients with mechanical heart valves.CBC W/PLT COUNT & AUTO [id number] 15:05:00 Test Item Value Reference Range Comments WHITE BLOOD CELL COUNT (BEAKER) (test zbtz=753) 5.5 K/ L 3.5-10.5 RED BLOOD CELL COUNT (BEAKER) (test xxhj=445) 4.68 M/ L 4.63-6.08 HEMOGLOBIN (BEAKER) (test dahu=116) 15.4 GM/DL 13.7-17.5 HEMATOCRIT (BEAKER) (test kqss=494) 45.1 % 40.1-51.0 MEAN CORPUSCULAR VOLUME (BEAKER) (test ldft=548) 96.4 fL 79.0-92.2 MEAN CORPUSCULAR HEMOGLOBIN (BEAKER) (test 32.9 pg 25.7-32.2 kism=767) MEAN CORPUSCULAR HEMOGLOBIN CONC (BEAKER) (test 34.1 GM/DL 32.3-36.5 ikcm=720) RED CELL DISTRIBUTION WIDTH (BEAKER) (test 15.2 % 11.6-14.4 rtdn=595) PLATELET COUNT (BEAKER) (test awjg=387) 119 K/CU MM 150-450 MEAN PLATELET VOLUME (BEAKER) (test vrha=686) 10.1 fL 9.4-12.4 NUCLEATED RED BLOOD CELLS (BEAKER) (test 0 /100 WBC 0-0 fkdp=338) NEUTROPHILS RELATIVE PERCENT (BEAKER) (test 49 % geed=885) LYMPHOCYTES RELATIVE PERCENT (BEAKER) (test 33 % vuth=111) MONOCYTES RELATIVE PERCENT (BEAKER) (test 11 % uzyf=870) EOSINOPHILS RELATIVE PERCENT (BEAKER) (test 6 % cwpn=718) BASOPHILS RELATIVE PERCENT (BEAKER) (test 1 % qkmi=727) NEUTROPHILS ABSOLUTE COUNT (BEAKER) (test 2.65 K/ L 1.78-5.38 fdpj=364) LYMPHOCYTES ABSOLUTE COUNT (BEAKER) (test 1.79 K/ L 1.32-3.57 prmg=995) MONOCYTES ABSOLUTE COUNT (BEAKER) (test 0.62 K/ L 0.30-0.82 wliz=797) EOSINOPHILS ABSOLUTE COUNT (BEAKER) (test 0.35 K/ L 0.04-0.54 vbca=973) BASOPHILS ABSOLUTE COUNT (BEAKER) (test 0.03 K/ L 0.01-0.08 ejcn=843) IMMATURE GRANULOCYTES-RELATIVE PERCENT (BEAKER) 0 % 0-1 (test rpmu=2310) CT, ABDOMEN, [id number] 10:58:00Referring: Warren Acosta, DO 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 This was followed by multiple axial images [...] seen. There is no free fluid or freeair in the abdomen. No findings of any bowel obstruction. The visualized portions of the small bowelare within normal limits. There is diverticulosis of [...] portal hypertension. 4. Colonic diverticulosis. Signed: Nina Marieort Verified Date/Time: 12/05/2017 10:58:51 Reading Location: [facility] Diagnostic Imaging Reading Room - [place] [address] POCT- [id number] 10:25:00 Test Item Value Reference Range Comments POC-CREATININE (GIUSEPPE) 0.7 mg/dL 0.6-1.3 TESTED [place] [facility] (test fjnk=2241) [facility] [address] POC-EGFR ([employer]comLIUDMILA) (test 113 mL/min/1.73M2 pgjk=7353) ANTI-NUCLEAR ANTIBODY (ROBERT)2017-11-07 10:41:00 Test Item Value Reference Range Comments ANTI-NUCLEAR ANTIBODY (ROBERT) ([employer]) (test Positive Negative pulq=412) ROBERT TITER AND [id number] 10:41:00 Test Item Value Reference Range Comments ROBERT TITER (BEAKER) (test ujvo=3239) :160 ROBERT PATTERN (BEAKER) (test lzny=9542) Homogeneous HEPATITIS B SURFACE [id number] 16:31:00 Test Item Value Reference Range Comments HEPATITIS B SURFACE ANTIBODY (BEAKER) (test < mIU/mL <8.0 ixtj=350) HEPATITIS A ANTIBODY, [id number] 16:30:00 Test Item Value Reference Range Comments HEPATITIS A IGG ANTIBODY (BEAKER) (test Nonreactive Nonreactive qcpm=5213) HEPATITIS B CORE ANTIBODY, [id number] 15:46:00 Test Item Value Reference Range Comments HEPATITIS B CORE TOTAL ANTIBODY (BEAKER) (test Nonreactive Nonreactive lhct=512) ALPHA FETOPROTEIN (AFP), TUMOR [id number] 15:41:00 Test Item Value Reference Range Comments ALPHA-FETOPROTEIN (BEAKER) (test czoz=0908) < ng/mL <10.0 [id number] 15:36:00 Test Item Value Reference Range Comments FERRITIN (BEAKER) (test vriz=967) 38 ng/mL 5-275 HEPATITIS B SURFACE [id number] 15:30:00 Test Item Value Reference Range Comments HEPATITIS B SURFACE ANTIGEN (2) (BEAKER) (test Nonreactive Nonreactive hutv=8962) HEPATITIS C [id number] 15:30:00 Test Item Value Reference Range Comments HEPATITIS C ANTIBODY (BEAKER) (test lwcq=100) Nonreactive Nonreactive IRON, TIBC, % SAT. (WITHOUT FERRITIN)2017-11-06 15:26:00 Test Item Value Reference Range Comments IRON (BEAKER) (test xobx=796) 66 ug/dL 40-160 TOTAL IRON BINDING CAPACITY (BEAKER) (test 300 ug/dL 250-450 hitw=156) IRON % SATURATION (2) (BEAKER) (test ylll=7476) 22 % 20-55 COMPREHENSIVE METABOLIC [id number] 15:24:00 Test Item Value Reference Range Comments TOTAL PROTEIN (BEAKER) 7.2 gm/dL 6.0-8.3 Specimen slightly (test umng=019) hemolyzed ALBUMIN (BEAKER) (test 3.6 g/dL 3.5-5.0 Specimen slightly rsuz=3688) hemolyzed ALKALINE PHOSPHATASE 108 U/L 40-150 (BEAKER) (test xcpu=027) BILIRUBIN TOTAL (BEAKER) 1.2 mg/dL 0.2-1.2 Specimen slightly (test psxj=403) hemolyzed SODIUM (BEAKER) (test 139 meq/L 136-145 mxjv=865) POTASSIUM (BEAKER) (test 4.1 meq/L 3.5-5.1 Specimen slightly ewkb=125) hemolyzed CHLORIDE (BEAKER) (test 104 meq/L 98-107 ivia=442) CO2 (BEAKER) (test 23 meq/L 22-29 bstm=991) BLOOD UREA NITROGEN 13 mg/dL 7-21 (BEAKER) (test qstt=277) CREATININE (BEAKER) (test 0.71 mg/dL 0.57-1.25 Specimen slightly sgnb=582) hemolyzed GLUCOSE RANDOM (BEAKER) 115 mg/dL 70-105 (test sgwl=338) CALCIUM (BEAKER) (test 9.0 mg/dL 8.4-10.2 izuy=175) AST (SGOT) (BEAKER) (test 51 U/L 5-34 Specimen slightly brpx=172) hemolyzed ALT (SGPT) (BEAKER) (test 53 U/L 6-55 Specimen slightly twmo=106) hemolyzed EGFR (BEAKER) (test 112 mL/min/1.73 sq ESTIMATED GFR IS NOT iong=4803) m ACCURATE CREATININE CLEARANCE IN PREDICTING GLOMERULAR FILTRATION RATE. ESTIMATED GFR IS NOT APPLICABLE FOR DIALYSIS PATIENTS. BILIRUBIN, [id number] 15:24:00 Test Item Value Reference Range Comments BILIRUBIN DIRECT (BEAKER) (test 0.4 mg/dL 0.1-0.5 Specimen slightly hemolyzed fzvt=381) [id number] 15:15:00 Test Item Value Reference Range Comments ALPHA-1 ANTITRYPSIN (BEAKER) 136.30 mg/dL 90.00-200.00 Specimen slightly hemolyzed (test mfzx=843) PROTHROMBIN [id number] 14:53:00 Test Item Value Reference Range Comments PROTIME (BEAKER) (test pxzq=211) 16.7 seconds 11.7-14.7 INR (BEAKER) (test wtjs=254) 1.4 <=5.9 RECOMMENDED COUMADIN/WARFARIN INR THERAPY RANGESSTANDARD DOSE: 2.0 - 3.0 Includes: PROPHYLAXIS forvenous thrombosis, systemic embolization; TREATMENT for venous thrombosis and/or pulmonary embolus.HIGH RISK: Target INR is 2.5-3.5 for patients with mechanical heart valves.CBC W/PLT COUNT & AUTO [id number] 14:43:00 Test Item Value Reference Range Comments WHITE BLOOD CELL COUNT (BEAKER) (test uvnz=596) 4.5 K/ L 3.5-10.5 RED BLOOD CELL COUNT (BEAKER) (test mpqj=837) 4.54 M/ L 4.63-6.08 HEMOGLOBIN (BEAKER) (test llyt=388) 14.9 GM/DL 13.7-17.5 HEMATOCRIT (BEAKER) (test puwx=639) 44.0 % 40.1-51.0 MEAN CORPUSCULAR VOLUME (BEAKER) (test hkqu=669) 96.9 fL 79.0-92.2 MEAN CORPUSCULAR HEMOGLOBIN (BEAKER) (test 32.8 pg 25.7-32.2 gisq=865) MEAN CORPUSCULAR HEMOGLOBIN CONC (BEAKER) (test 33.9 GM/DL 32.3-36.5 fejn=846) RED CELL DISTRIBUTION WIDTH (BEAKER) (test 14.0 % 11.6-14.4 nyog=129) PLATELET COUNT (BEAKER) (test heyw=975) 115 K/CU MM 150-450 MEAN PLATELET VOLUME (BEAKER) (test vybz=185) 10.8 fL 9.4-12.4 NUCLEATED RED BLOOD CELLS (BEAKER) (test 0 /100 WBC 0-0 wnmz=542) NEUTROPHILS RELATIVE PERCENT (BEAKER) (test 52 % jdae=726) LYMPHOCYTES RELATIVE PERCENT (BEAKER) (test 32 % irej=699) MONOCYTES RELATIVE PERCENT (BEAKER) (test 10 % xopo=182) EOSINOPHILS RELATIVE PERCENT (BEAKER) (test 4 % wiad=441) BASOPHILS RELATIVE PERCENT (BEAKER) (test 1 % xatr=926) NEUTROPHILS ABSOLUTE COUNT (BEAKER) (test 2.35 K/ L 1.78-5.38 vmgg=855) LYMPHOCYTES ABSOLUTE COUNT (BEAKER) (test 1.45 K/ L 1.32-3.57 ecgg=974) MONOCYTES ABSOLUTE COUNT (BEAKER) (test 0.46 K/ L 0.30-0.82 ysww=567) EOSINOPHILS ABSOLUTE COUNT (BEAKER) (test 0.20 K/ L 0.04-0.54 hhgm=827) BASOPHILS ABSOLUTE COUNT (BEAKER) (test 0.03 K/ L 0.01-0.08 yduz=940) IMMATURE GRANULOCYTES-RELATIVE PERCENT (BEAKER) 1 % 0-1 (test llab=8174) GLUCOMETER GLUCOSE- LAB USE [id number] 10:45:00 Test Item Value Reference Range Comments GLUCOMETER (test code=GMG) 115 mg/dL 70-100 OVA AND PARASITE [id number] 14:14:00 Test Item Value Reference Range Comments DIRECT SMEAR - O\T\P No ova or parasites seen No ova or parasites seen (BEAKER) (test wxpz=380) CONCENTRATE SMEAR - O\T\P No ova or parasites seen No ova or parasites seen (BEAKER) (test hcvr=645) TRICHROME SMEAR - O\T\P No ova or parasites seen No ova or parasites seen (BEAKER) (test muao=802) STOOL CULTURE + SHIGA [id number] 10:33:00 Test Item Value Reference Range Comments CULTURE (BEAKER) (test No Salmonella, Shigella or kduu=3456) Campylobacter isolated POCT-GLUCOSE [id number] 14:56:00 Test Item Value Reference Range Comments POC-GLUCOSE METER (BEAKER) 223 mg/dL 70-110 TESTED AT [address] (test wflr=1825) [facility] [address] [id number] 06:26:00 Test Item Value Reference Range Comments D-DIMER QUANTITATIVE (BEAKER) (test yxej=267) 2.32 MG/L FEU <0.50 REGARDING D-DIMER RESULTS: The 98% NPV (Negative Predictive Value) for DVT/PE exclusion is 0.50 mg/LFEU as suggested by the commercial front load operator and as approved by the FDA.POCT-GLUCOSE [id number] 06:11:00 Test Item Value Reference Range Comments POC-GLUCOSE METER ([facility]) 182 mg/dL 70-110 TESTED AT [address] (test qidb=7859) [facility] [address] CBC W/PLT COUNT & AUTO [id number] 05:42:00 Test Item Value Reference Range Comments WHITE BLOOD CELL COUNT (BEAKER) (test vxyh=146) 3.3 K/ L 4.0-10.0 RED BLOOD CELL COUNT (BEAKER) (test nsnm=257) 4.43 M/ L 4.20-5.80 HEMOGLOBIN (BEAKER) (test gkhs=265) 14.4 GM/DL 13.0-16.8 HEMATOCRIT (BEAKER) (test licm=348) 42.1 % 40.0-50.0 MEAN CORPUSCULAR VOLUME (BEAKER) (test ecjb=574) 95.0 fL 82.0-98.0 MEAN CORPUSCULAR HEMOGLOBIN (BEAKER) (test 32.4 pg 27.0-33.0 fvkl=432) MEAN CORPUSCULAR HEMOGLOBIN CONC (BEAKER) (test 34.1 GM/DL 32.0-36.0 satg=113) RED CELL DISTRIBUTION WIDTH (BEAKER) (test 15.3 % 10.3-14.2 cjgy=240) PLATELET COUNT (BEAKER) (test juvs=256) 112 K/CU MM 150-430 MEAN PLATELET VOLUME (BEAKER) (test vegs=099) 8.0 fL 6.5-10.5 NUCLEATED RED BLOOD CELLS (BEAKER) (test 0 /100 WBC 0-0 tbjs=378) NEUTROPHILS RELATIVE PERCENT (BEAKER) (test 47 % oceh=995) LYMPHOCYTES RELATIVE PERCENT (BEAKER) (test 36 % emgz=692) MONOCYTES RELATIVE PERCENT (BEAKER) (test 11 % rirf=142) EOSINOPHILS RELATIVE PERCENT (BEAKER) (test 5 % qdqm=143) BASOPHILS RELATIVE PERCENT (BEAKER) (test 0 % jqto=624) NEUTROPHILS ABSOLUTE COUNT (BEAKER) (test 1.50 K/ L 1.80-8.00 peai=660) LYMPHOCYTES ABSOLUTE COUNT (BEAKER) (test 1.20 K/ L 1.48-4.50 yquc=353) MONOCYTES ABSOLUTE COUNT (BEAKER) (test 0.30 K/ L 0.00-1.30 crpd=421) EOSINOPHILS ABSOLUTE COUNT (BEAKER) (test 0.20 K/ L 0.00-0.50 jcxq=406) BASOPHILS ABSOLUTE COUNT (BEAKER) (test 0.00 K/ L 0.00-0.20 umiu=281) POCT-GLUCOSE [id number] 20:40:00 Test Item Value Reference Range Comments POC-GLUCOSE METER (BEAKER) 270 mg/dL 70-110 TESTED AT [address] (test zawq=1508) [facility] [address] POCT-GLUCOSE [id number] 16:31:00 Test Item Value Reference Range Comments POC-GLUCOSE METER (BEAKER) 216 mg/dL 70-110 TESTED AT [address] (test tdnz=9305) [facility] [address] SHIGA TOXIN [id number] 14:44:00 Test Item Value Reference Range Comments SHIGA TOXIN 1 (BEAKER) (test iiou=9488) Not detected Not detected SHIGA TOXIN 2 (BEAKER) (test pxrb=3754) Not detected Not detected STOOL PATH [id number] 14:44:00 Test Item Value Reference Range Comments PATHOGEN EXAM CHARGED (BEAKER) (test gwiy=1419) Done CBC W/PLT COUNT & AUTO [id number] 14:18:00 Test Item Value Reference Range Comments WHITE BLOOD CELL COUNT (BEAKER) (test cmii=050) 4.1 K/ L 4.0-10.0 RED BLOOD CELL COUNT (BEAKER) (test kvbr=317) 4.50 M/ L 4.20-5.80 HEMOGLOBIN (BEAKER) (test zrvp=749) 14.9 GM/DL 13.0-16.8 HEMATOCRIT (BEAKER) (test xvhg=669) 43.2 % 40.0-50.0 MEAN CORPUSCULAR VOLUME (BEAKER) (test inhs=579) 96.1 fL 82.0-98.0 MEAN CORPUSCULAR HEMOGLOBIN (BEAKER) (test 33.1 pg 27.0-33.0 xqdt=883) MEAN CORPUSCULAR HEMOGLOBIN CONC (BEAKER) (test 34.4 GM/DL 32.0-36.0 zmbo=832) RED CELL DISTRIBUTION WIDTH (BEAKER) (test 15.3 % 10.3-14.2 zhjj=708) PLATELET COUNT (BEAKER) (test zvpj=630) 115 K/CU MM 150-430 MEAN PLATELET VOLUME (BEAKER) (test ocqg=429) 7.8 fL 6.5-10.5 NUCLEATED RED BLOOD CELLS (BEAKER) (test 0 /100 WBC 0-0 ggcx=651) NEUTROPHILS RELATIVE PERCENT (BEAKER) (test 65 % ztly=386) LYMPHOCYTES RELATIVE PERCENT (BEAKER) (test 26 % nwgp=763) MONOCYTES RELATIVE PERCENT (BEAKER) (test 7 % psow=000) EOSINOPHILS RELATIVE PERCENT (BEAKER) (test 3 % doiy=121) BASOPHILS RELATIVE PERCENT (BEAKER) (test 0 % xypj=326) NEUTROPHILS ABSOLUTE COUNT (BEAKER) (test 2.70 K/ L 1.80-8.00 eucx=541) LYMPHOCYTES ABSOLUTE COUNT (BEAKER) (test 1.10 K/ L 1.48-4.50 zucz=660) MONOCYTES ABSOLUTE COUNT (BEAKER) (test 0.30 K/ L 0.00-1.30 unru=583) EOSINOPHILS ABSOLUTE COUNT (BEAKER) (test 0.10 K/ L 0.00-0.50 zold=804) BASOPHILS ABSOLUTE COUNT (BEAKER) (test 0.00 K/ L 0.00-0.20 mnys=164) BASIC METABOLIC [id number] 14:18:00 Test Item Value Reference Range Comments SODIUM (BEAKER) (test 134 meq/L 135-148 tfld=543) POTASSIUM (BEAKER) (test 4.1 meq/L 3.6-5.5 brhk=728) CHLORIDE (BEAKER) (test 103 meq/L 98-106 eioc=953) CO2 (BEAKER) (test 21 meq/L 20-29 vazd=462) BLOOD UREA NITROGEN 12 mg/dL 10-26 (BEAKER) (test prhn=208) CREATININE (BEAKER) (test 0.80 mg/dL 0.50-1.20 bgsn=644) GLUCOSE RANDOM (BEAKER) 293 mg/dL 70-110 (test cpxj=655) CALCIUM (BEAKER) (test 9.1 mg/dL 8.5-10.5 hbaz=340) EGFR (BEAKER) (test 97 mL/min/1.73 sq m ESTIMATED GFR IS NOT olus=6782) ACCURATE CREATININE CLEARANCE IN PREDICTING GLOMERULAR FILTRATION RATE. ESTIMATED GFR IS NOT APPLICABLE FOR DIALYSIS PATIENTS. [id number] 14:12:00 Test Item Value Reference Range Comments MAGNESIUM (BEAKER) (test hosf=989) 2.4 mg/dL 1.5-3.0 POCT-GLUCOSE [id number] 13:06:00 Test Item Value Reference Range Comments POC-GLUCOSE METER (BEAKER) 247 mg/dL 70-110 TESTED AT [facility] [address] cl[address]=3038) [address] [facility] [address] LIPID [id number] 07:28:00 Test Item Value Reference Range Comments TRIGLYCERIDES (BEAKER) (test wkal=890) 134 mg/dL CHOLESTEROL (BEAKER) (test zbin=645) 131 mg/dL HDL CHOLESTEROL (BEAKER) (test wkek=890) 25 mg/dL LDL CHOLESTEROL CALCULATED (BEAKER) (test 79 mg/dL rxec=402) Triglyceride Reference Range: Low Risk <150 Borderline 150- 199 High Risk 200-499 Very High Risk >=500Cholesterol Reference Range: Low Risk <200 Borderline 200-239 High Risk > 240HDL Cholesterol Reference Range: Low Risk >=60 High Risk <40LDL Cholesterol Reference Range: Optimal <100 Near Optimal 100-129 Borderline 130-159 High 160-189 Very High >=190 Specimen slightly [id number] 07:17:00 Test Item Value Reference Range Comments LIPASE (BEAKER) (test mase=879) 16 U/L 6-51 Specimen slightly ictericCOMPREHENSIVE METABOLIC [id number] 07:16:00 Test Item Value Reference Range Comments TOTAL PROTEIN (BEAKER) 6.2 gm/dL 6.0-8.5 (test dgmf=025) ALBUMIN (BEAKER) (test 3.2 g/dL 3.5-5.0 ymqj=9893) ALKALINE PHOSPHATASE 61 U/L 30-115 (BEAKER) (test ruqi=885) BILIRUBIN TOTAL (BEAKER) 1.9 mg/dL 0.1-1.2 (test vufi=075) SODIUM (BEAKER) (test 137 meq/L 135-148 dymk=803) POTASSIUM (BEAKER) (test 3.6 meq/L 3.6-5.5 txjb=363) CHLORIDE (BEAKER) (test 104 meq/L 98-106 piaq=800) CO2 (BEAKER) (test 23 meq/L 20-29 tftv=807) BLOOD UREA NITROGEN 10 mg/dL 10-26 (BEAKER) (test gdfu=142) CREATININE (BEAKER) (test 0.70 mg/dL 0.50-1.20 ivoq=270) GLUCOSE RANDOM (BEAKER) 126 mg/dL 70-110 (test bjab=656) CALCIUM (BEAKER) (test 8.6 mg/dL 8.5-10.5 nkwz=213) AST (SGOT) (BEAKER) (test 50 U/L 5-40 asfr=333) ALT (SGPT) (BEAKER) (test 39 U/L 5-50 zfpg=744) EGFR (BEAKER) (test 114 mL/min/1.73 sq ESTIMATED GFR IS NOT mxvt=8184) m ACCURATE CREATININE CLEARANCE IN PREDICTING GLOMERULAR FILTRATION RATE. ESTIMATED GFR IS NOT APPLICABLE FOR DIALYSIS PATIENTS. Specimen slightly ictericHEMOGLOBIN [id number] 07:14:00 Test Item Value Reference Range Comments HEMOGLOBIN A1C (BEAKER) (test rrpm=057) 8.1 % 4.3-6.1 [id number] 07:08:00 Test Item Value Reference Range Comments AMYLASE (BEAKER) (test jaqu=483) 76 U/L 30-110 Specimen slightly [id number] 07:07:00 Test Item Value Reference Range Comments MAGNESIUM (BEAKER) (test dwzp=286) 1.9 mg/dL 1.5-3.0 CBC W/PLT COUNT & AUTO [id number] 07:01:00 Test Item Value Reference Range Comments WHITE BLOOD CELL COUNT (BEAKER) (test iqhb=965) 3.4 K/ L 4.0-10.0 RED BLOOD CELL COUNT (BEAKER) (test lyoi=996) 4.29 M/ L 4.20-5.80 HEMOGLOBIN (BEAKER) (test ejju=090) 13.9 GM/DL 13.0-16.8 HEMATOCRIT (BEAKER) (test rggn=435) 40.6 % 40.0-50.0 MEAN CORPUSCULAR VOLUME (BEAKER) (test vqwn=360) 94.6 fL 82.0-98.0 MEAN CORPUSCULAR HEMOGLOBIN (BEAKER) (test 32.5 pg 27.0-33.0 vcuw=219) MEAN CORPUSCULAR HEMOGLOBIN CONC (BEAKER) (test 34.3 GM/DL 32.0-36.0 falj=337) RED CELL DISTRIBUTION WIDTH (BEAKER) (test 15.6 % 10.3-14.2 tkye=206) PLATELET COUNT (BEAKER) (test icer=435) 99 K/CU MM 150-430 MEAN PLATELET VOLUME (BEAKER) (test fkqe=130) 8.0 fL 6.5-10.5 NUCLEATED RED BLOOD CELLS (BEAKER) (test 0 /100 WBC 0-0 odvs=665) NEUTROPHILS RELATIVE PERCENT (BEAKER) (test 49 % hcyc=020) LYMPHOCYTES RELATIVE PERCENT (BEAKER) (test 37 % vxtg=777) MONOCYTES RELATIVE PERCENT (BEAKER) (test 10 % pugb=244) EOSINOPHILS RELATIVE PERCENT (BEAKER) (test 4 % tsez=282) BASOPHILS RELATIVE PERCENT (BEAKER) (test 0 % djfe=474) NEUTROPHILS ABSOLUTE COUNT (BEAKER) (test 1.70 K/ L 1.80-8.00 jsmm=662) LYMPHOCYTES ABSOLUTE COUNT (BEAKER) (test 1.30 K/ L 1.48-4.50 tuyd=457) MONOCYTES ABSOLUTE COUNT (BEAKER) (test gpnp=328) 0.30 K/ L 0.00-1.30 EOSINOPHILS ABSOLUTE COUNT (BEAKER) (test 0.20 K/ L 0.00-0.50 bsnk=805) BASOPHILS ABSOLUTE COUNT (BEAKER) (test pdub=974) 0.00 K/ L 0.00-0.20 GLUCOMETER GLUCOSE- LAB USE [id number] 04:55:00 Test Item Value Reference Range Comments GLUCOMETER (test code=GMG) 139 mg/dL 70-100 GLUCOMETER GLUCOSE- LAB USE [id number] 04:55:00 Test Item Value Reference Range Comments GLUCOMETER (test code=GMG) 163 mg/dL 70-100
--- OUTSIDE RECORDS SUMMARY | 2018-07-20 09:32 | XMS REPORT | Clinical Summary ---
:1950 Author Organization [facility] Address [address] [place] [address] Phone Care Team Providers Name Role Phone Unavailable Primary Care Provider Unavailable Allergies Active Allergy Reactions Severity Noted Date Comments Temazepam Other (See Comments) High 07/27/2017 Severe agitation. Current Medications Prescription Sig. Disp. Refills Start End Date Status Date metFORMIN Take 1,000 mg by Active (GLUCOPHAGE) 1000 mouth 2 (two) MG tablet times daily with breakfast and dinner. fenofibric acid, Take 135 mg by Active choline, 135 mg mouth daily. capsule nadolol (CORGARD) Take 40 mg by Active 40 MG tablet mouth daily. empagliflozin Take 25 mg by Active (JARDIANCE) 25 mg mouth daily. tablet Missing or L- Theanine 100mg Active Non-Formulary . Medication ranitidine Take 75 mg by Active (ZANTAC) 150 MG mouth 2 (two) tablet times daily . insulin glargine Inject 50 Units Active (LANTUS) 100 subcutaneously. unit/mL injectionIndicatio ns: Other cirrhosis of liver (HCC), Screening for malignant neoplasm, Secondary esophageal varices without bleeding (HCC) cetirizine Take 10 mg by Active (ZYRTEC) 10 MG mouth daily. tabletIndications: Other cirrhosis of liver (HCC), Screening for malignant neoplasm, Secondary esophageal varices without bleeding (HCC) acetaminophen Take 650 mg by Active (TYLENOL) 650 MG mouth daily. CR tabletIndications: Other cirrhosis of liver (HCC), Screening for malignant neoplasm, Secondary esophageal varices without bleeding (HCC) vardenafil Take 20 mg by Active (LEVITRA) 20 MG mouth daily as tabletIndications: needed for Other cirrhosis of Erectile liver (HCC), Dysfunction. Screening for malignant neoplasm, Secondary esophageal varices without bleeding (HCC) folic Take by mouth Active acid/multivit-min/ daily. lutein (CENTRUM SILVER ORAL)Indications: Other cirrhosis of liver (HCC), Screening for malignant neoplasm, Secondary esophageal varices without bleeding (HCC) losartan (COZAAR) Take 50 mg by 06/15/20 Discontinued 50 MG tablet mouth daily. 18 glipiZIDE Take 5 mg by mouth 06/15/20 Discontinued (GLUCOTROL) 5 MG 2 (two) times 18 tablet daily before meals. tamsulosin Take 0.4 mg by 06/15/20 Discontinued (FLOMAX) 0.4 mg mouth daily. 18 Cp24 24 hr capsule Missing or Take 1 tablet by 07/29/20 [...] mouth daily L. 17 Medication Theanine . enoxaparin Inject 0.8 mLs 20 Syringe 0 06/15/20 Discontinued (LOVENOX) 120 (120 mg total) 7 18 mg/0.8 mL Syrg subcutaneously every 12 (twelve) hours. apixaban (ELIQUIS) Take 5 mg by mouth 06/15/20 Discontinued 5 mg Tab tablet 2 (two) times 18 daily. krill oil 500 mg Take by mouth. 06/15/20 Discontinued Cap 18 TURMERIC, BULK, 1,500 mg by 06/15/20 Discontinued MISC Miscellaneous 18 route. metFORMIN Take 1,500 mg by 06/15/20 Discontinued (GLUCOPHAGE) 1000 mouth. 18 MG tablet Hospital, Clinic, or Other Ordered Dose Route [...] Encounters Date Type Specialty Care Team Description 06/15/2018 Office Visit Hepatology Benedict Gutierres Other cirrhosis of MD Geovanna liver (Primary Artis Valladares Dx);Screening for malignant neoplasm;Secondary esophageal varices without bleeding (HCC) 02/02/2018 Telephone Hepatology Benedict Gutierres follow up call from MD Geovanna recent admission 02/02/2018 Telephone Hepatology Masha Dyer, Follow-up RN 12/12/2017 Office Visit Hepatology Benedict Gutierres Other Sherman MD liver (HCC) (Primary Dx);Portal hypertension (HCC);Portal vein thrombosis;Metabolic syndrome 12/05/2017 Hospital Encounter Radiology Benedict Gutierres Canceled (Patient) MD Geovanna 12/04/2017 Outside Orders Benedict Gutierres MD 11/14/2017 Abstract Hepatology Analia Milligan RN 11/08/2017 Abstract Hepatology Analia Milligan RN 11/07/2017 Abstract Hepatology Analia Milligan RN 11/06/2017 Office Visit Hepatology Benedict Gutierres Other cirrhosis jerri Austin MD liver (Primary Dx);Screening for malignant neoplasm;Immunity status testing;Portal hypertension (HCC);Secondary esophageal varices without bleeding (HCC);Metabolic syndrome;PVT (portal vein thrombosis);Secondar y esophageal varices with bleeding 10/12/2017 Telephone Hepatology Casie Torre Appointment 08/23/2017 Telephone Hepatology Casie Torre Appointment 07/26/2017 - Hospital Encounter General Internal Korey Taylor, 07/29/2017 Medicine MD Leonard, Anderson Hansen MD 07/26/2017 Orders Only Mahad Rivera, ESTEBAN after 07/19/2017 Immunizations Name Dates Previously Given Next Due [...] Vital Sign Reading Time Taken Blood Pressure 124/78 06/15/2018 12:42 PM CDT Pulse 72 06/15/2018 12:42 PM CDT Temperature 36.5 C (97.7 F) 06/15/2018 12:42 PM CDT Respiratory Rate 16 06/15/2018 12:42 PM CDT Oxygen Saturation 97% 06/15/2018 12:42 PM CDT Inhaled Oxygen Concentration - - Weight 108.2 kg (238 lb 8 oz) 06/15/2018 12:42 PM CDT Height 188 cm (6' 2") 06/15/2018 12:42 PM CDT Body Mass Index 30.62 06/15/2018 12:42 PM CDT Plan of Treatment Date Type Specialty Care Team Description 12/06/2018 Office Visit Hepatology [facility] Health Maintenance Due Date Last Done Comments INFLUENZA VACCINE 06/25/2018 07/27/2017 Results CBC with platelet count + automated diff (06/15/2018 2:14 PM)Only the most recent of5 resultswithin the time period is included. Component Value Ref Range WBC 5.5 3.5 - 10.5 K/L RBC 4.68 4.63 - 6.08 M/L Hemoglobin 15.4 13.7 - 17.5 GM/DL Hematocrit 45.1 40.1 - 51.0 % MCV 96.4 (H) 79.0 - 92.2 fL MCH 32.9 (H) 25.7 - 32.2 pg MCHC 34.1 32.3 - 36.5 GM/DL RDW 15.2 (H) 11.6 - 14.4 % Platelets 119 (L) 150 - 450 K/CU MM MPV 10.1 9.4 - 12.4 fL nRBC 0 0 - 0 /100 WBC % Neutros 49 % % Lymphs 33 % % Monos 11 % % Eos 6 % % Baso 1 % # Neutros 2.65 1.78 - 5.38 K/L # Lymphs 1.79 1.32 - 3.57 K/L # Monos 0.62 0.30 - 0.82 K/L # Eos 0.35 0.04 - 0.54 K/L # Baso 0.03 0.01 - 0.08 K/L Immature Granulocytes-Relative 0 0 - 1 % Specimen Performing Laboratory Blood [facility] [address] [address] Alpha fetoprotein (AFP), tumor marker (06/15/2018 2:14 PM)Only the most recent of2 resultswithin the time period is included. Component Value Ref Range Alpha-Fetoprotein <2.0 <10.0 ng/mL Specimen Performing Laboratory Blood [address] [address] Pro-time/INR (06/15/2018 2:14 PM)Only the most recent of2 resultswithin the time period is included. Component Value Ref Range Protime 15.9 (H) 11.7 - 14.7 seconds INR 1.3 <=5.9 Specimen Performing Laboratory Blood [address] [address] Narrative RECOMMENDED COUMADIN/WARFARIN INR THERAPY RANGES STANDARD DOSE: 2.0 - 3.0 Includes: PROPHYLAXIS for venous thrombosis, systemic embolization; TREATMENT for venous thrombosis and/or pulmonary embolus. HIGH RISK: Target INR is 2.5-3.5 for patients with mechanical heart valves. CBC with platelet count + automated diff (06/15/2018 2:14 PM)Only the most recent of5 resultswithin the time period is included. Specimen Performing Laboratory Blood Narrative The following orders were created for panel order CBC with platelet count + automated diff. Procedure Abnormality Status --------- ------ CBC with platelet count ...[[id number]]AbnormalFinal result Please view results for these tests on the individual orders. Hepatic function panel (06/15/2018 2:14 PM) Component Value Ref Range Protein, Total 7.2 6.0 - 8.3 gm/dL Albumin 3.8 3.5 - 5.0 g/dL Total Bilirubin 1.3 (H) 0.2 - 1.2 mg/dL Bilirubin, Direct 0.4 0.1 - 0.5 mg/dL Alkaline Phosphatase 86 40 - 150 U/L AST 47 (H) 5 - 34 U/L ALT 43 6 - 55 U/L Specimen Performing Laboratory Blood [address] [address] Basic Metabolic Panel (06/15/2018 2:14 PM)Only the most recent of2 resultswithin the time period is included. Component Value Ref Range Sodium 139 136 - 145 meq/L Potassium 3.9 3.5 - 5.1 meq/L Chloride 106 98 - 107 meq/L CO2 25 22 - 29 meq/L BUN 14 7 - 21 mg/dL Creatinine 0.72 0.57 - 1.25 mg/dL Glucose 157 (H) 70 - 105 mg/dL Calcium 9.6 8.4 - 10.2 mg/dL EGFR 110Comment: ESTIMATED GFR IS NOT ACCURATE mL/min/1.73 sq m CREATININE CLEARANCE IN PREDICTING GLOMERULAR FILTRATION RATE. ESTIMATED GFR IS NOT APPLICABLE FOR DIALYSIS PATIENTS. Specimen Performing Laboratory Blood [facility] [address] [place] [address] abdomen with/without contrast (12/05/2017 10:35 AM) Specimen Performing Laboratory Adteractive RIS Narrative FINAL REPORT HISTORY : cirrhosis with [...] MD Report Verified Date/Time:12/05/2017 10:58:51 Reading Location: [facility] Diagnostic Imaging Reading Room - [place] [id number] Procedure Note Interface, External Ris In - [...] Report Verified Date/Time: 12/05/2017 10:58:51 Reading Location: [facility] Diagnostic Imaging Reading Room - [place] [address] -Creatinine (12/05/2017 10:20 AM) Component Value Ref Range POC-Creatinine 0.7Comment: TESTED AT [facility]-[address] 0.6 - 1.3 mg/dL [facility] [address] POC-EGFR 113 mL/min/1.73M2 Specimen Performing Laboratory [address] [address] Hepatitis A antibody, IgG (11/06/2017 1:03 PM) Component Value Ref Range Hep A IgG Nonreactive Nonreactive Specimen Performing Laboratory [address] [address] Mitochondrial Antibodies, M2 (11/06/2017 1:03 PM) Component Value Ref Range Mitochondria M2 Ab <20.0 See Note: U Comment: Reference Range: NEGATIVE:< OR=20.0 EQUIVOCAL: 20.1-24.9 POSITIVE:> OR=25.0 Specimen Performing Laboratory Blood [facility] [address] [address] Narrative Performing Lab [facility] [address] [address] Geovanna Rey MD, PhD Iron, TIBC, % sat. (without ferritin) (11/06/2017 1:03 PM) Component Value Ref Range Iron 66 40 - 160 ug/dL TIBC 300 250 - 450 ug/dL Iron % Saturation 22 20 - 55 % Specimen Performing Laboratory [address] [address] Hepatitis C antibody (11/06/2017 1:03 PM) Component Value Ref Range Hepatitis C Ab Nonreactive Nonreactive Specimen Performing Laboratory Blood [address] [address] Actin (Smooth Muscle) Antibody, IgG (11/06/2017 1:03 [...] Specimen Performing Laboratory Blood [facility] [address] [address] Narrative Performing Lab [facility] [address] [address] Geovanna Rey MD, PhD [id number] (11/06/2017 1:03 PM) Component Value Ref Range A-1 Antitrypsin 136.30Comment: Specimen slightly hemolyzed 90.00 - 200.00 mg/ dL Specimen Performing Laboratory Blood [address] [address] ROBERT Titer & Pattern (11/06/2017 1:03 PM) Component Value Ref Range ROBERT Titer 1:160 ROBERT Pattern Homogeneous Specimen Performing Laboratory Blood [address] [address] Ceruloplasmin (11/06/2017 1:03 PM) Component Value Ref Range Ceruloplasmin 25 18 - 36 mg/dL Comment: Adults:Males: 18-36 mg/dL Females: 18-53 mg/dL Pediatrics:Males (mg/dL)Females (mg/dL) 0-30 Days 8-25 3-28 31 Days-11 Month [id number] 1-3 [id number] 4-6 [id number] 7-9 [id number] 10-12 [id number] 13-15 [id number] 16-18 [id number] The pediatric ranges are derived from the following criteria: Enrique SJ, Opal JM, Fadia J et al Pediatric reference ranges for Ouqq-6-Fxqkficajhkye and ceruloplasmin. Clin. Chem 1997; 43:S1999 Pediatric Reference Ranges, 2nd., [place] Enrique,et al. editors. [employer], [place], [place] 1997. Specimen Performing Laboratory Blood [facility] [address] [place] [address] Narrative Performing Lab *[facility], [address] [place] [address] Geovanna Rey MD, PhD Hepatitis B core antibody, total (11/06/2017 1:03 PM) Component Value Ref Range Hep B Core Total Ab Nonreactive Nonreactive Specimen Performing Laboratory [address] [address] Hepatitis B surface antibody (11/06/2017 1:03 PM) Component Value Ref Range Hep B S Ab <8.0 <8.0 mIU/mL Specimen Performing Laboratory Blood [address] [address] Hepatitis B surface antigen (11/06/2017 1:03 PM) Component Value Ref Range hepatitis B Surface Ag Nonreactive Nonreactive Specimen Performing Laboratory [address] [address] Anti-Nuclear Antibody (ROBERT) (11/06/2017 1:03 PM) Component Value Ref Range ROBERT Positive (A) Negative Specimen Performing Laboratory Blood [address] [address] Ferritin (11/06/2017 1:03 PM) Component Value Ref Range Ferritin 38 5 - 275 ng/mL Specimen Performing Laboratory [address] [address] Bilirubin, direct (11/06/2017 1:03 PM) Component Value Ref Range Bilirubin, Direct 0.4Comment: Specimen slightly hemolyzed 0.1 - 0.5 mg/dL Specimen Performing Laboratory Blood [address] [address] Comprehensive Metabolic Panel (11/06/2017 1:03 PM)Only the [...] FOR DIALYSIS PATIENTS. Specimen Performing Laboratory Blood [address] [address] POC-Glucose meter (07/29/2017 2:55 PM)Only the most recent of5 resultswithin the time period is included. Component Value Ref Range POC-Glucose Meter 223 (H)Comment: TESTED AT [facility] [address] [place] [address] [address] 70 - 110 mg/dL [place] [address] Specimen Performing Laboratory Blood [address] [address] D-dimer (07/29/2017 5:21 AM) Component Value Ref Range D-Dimer, Quant 2.32 (H) <0.50 MG/L FEU Specimen Performing Laboratory Blood - Arm, Right [facility] [address] [place] [address] Narrative REGARDING D-DIMER RESULTS: The 98% NPV (Negative Predictive Value) for DVT/PE exclusion is 0.50 mg/L FEU as suggested by the pin worker and as approved by the FDA. Magnesium (07/28/2017 1:56 PM)Only the most recent of2 resultswithin the time period is included. Component Value Ref Range Magnesium 2.4 1.5 - 3.0 mg/dL Specimen Performing Laboratory Blood [facility] [address] [place] [address] STOOL PATH CHARGE (07/27/2017 12:11 PM) Component Value Ref Range Pathogen exam charged Done Specimen Performing Laboratory Stool - Per Rectum [facility] [address] [place] [address] Shiga Toxin Screen (07/27/2017 12:11 PM) Component Value Ref Range Shiga toxin 1 Not detected Not detected Shiga toxin 2 Not detected Not detected Specimen Performing Laboratory Stool - Per Rectum [facility] [address] [place] [address] Ova and Parasite Examination (07/27/2017 12:11 PM) Component Value Ref Range O&P Direct Smear No ova or parasites seen No ova or parasites seen O&P Concentrate Smear No ova or parasites seen No ova or parasites seen O&P Trichrome Smear No ova or parasites seen No ova or parasites seen Specimen Performing Laboratory Stool [facility] [address] [address] Stool culture + Shiga toxin (07/27/2017 12:11 PM) Component Value Ref Range Result No Salmonella, Shigella or Campylobacter isolated Specimen Performing Laboratory Stool - Per Rectum [facility] [address] [place] [address] Lipase (07/27/2017 5:54 AM) Component Value Ref Range Lipase 16 6 - 51 U/L Specimen Performing Laboratory Blood [facility] [address] [place] [address] Narrative Specimen slightly icteric Hemoglobin A1c (07/27/2017 5:54 AM) Component Value Ref Range Hemoglobin A1C 8.1 (H) 4.3 - 6.1 % Specimen Performing Laboratory Blood [facility] [address] [place] [address] Amylase (07/27/2017 5:54 AM) Component Value Ref Range Amylase 76 30 - 110 U/L Specimen Performing Laboratory [facility] [address] [place] [address] Narrative Specimen slightly icteric Lipid panel (07/27/2017 5:54 AM) Component Value Ref Range Triglycerides 134 mg/dL Cholesterol 131 mg/dL HDL 25 mg/dL LDL Calculated 79 mg/dL Specimen Performing Laboratory Blood [facility] [address] [place] [address] Narrative Triglyceride Reference Range: Low Risk <150 [id number] High Risk 200-499 Very High Risk>=500 Cholesterol Reference Range: Low Risk <200 [id number] High Risk>240 HDL Cholesterol Reference Range: Low Risk >=60 High Risk <40 LDL Cholesterol Reference Range: Optimal<100 Near [id number] [id number] Very High >=190 Specimen slightly icteric after 07/19/2017
--- OUTSIDE RECORDS SUMMARY | 2018-07-24 09:28 | XMS REPORT | Clinical Summary ---
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 On anticoagulant therapy 07/26/2017 Epigastric pain 07/26/2017 Splenomegaly 07/26/2017 Thrombocytopenia (HCC) 07/26/2017 Enteritis 07/25/2017 Encounters Date Type Specialty Care Team Description 05/08/20 [facility] Gastroenterology [place], Esophageal varices without 18 Encounter Gama Shahid, bleeding, unspecified esophageal varices type 05/08/20 Procedure Pass Gastroenterology 18 05/08/20 Surgery Gastroenterology [place], EGD with polypectomy by arianna Salter, esophageal varices band ligation (x 3 bands) 05/04/20 Anesthesia Event Gastroenterology [facility], 18 Bertha Obrien NP 02/07/20 [facility] Gastroenterology [place], 18 Encounter Gama Shahid MD 02/07/20 Documentation Gastroenterology [place], 18 Gama Shahid MD 02/07/20 Procedure Pass Gastroenterology 18 02/07/20 Surgery Gastroenterology [place], EGD with banding of Deon Shahid esophageal varices 02/02/20 Anesthesia Event Gastroenterology Do, 18 OLGA LIDIA Ball 01/25/20 [facility] Internal [facility], Hematemesis without nausea ( Primary Dx); 18 - Encounter Medicine Anne Acute upper GI bleed 01/29/20 MD Cabrera 18 Raheem Le DO 01/25/20 Procedure Pass Gastroenterology 18 01/25/20 Surgery Gastroenterology Edmundo, ESOPHAGOGASTRODUODENOSCOPY 18 All [place] (EGD) 09/05/20 Procedure Pass Gastroenterology 17 07/25/20 Emergency General Internal [place], Enteritis (Primary Dx); 17 - Medicine Marquez Ibanez, Mesenteric thrombosis 07/26/20 Barbara Zapata MD after 07/23/2017 Social History Tobacco Use Types Packs/Day Years [...] COLOR DOPPLER 12:17 PM CDT this procedure (00629) are in the results section. ESOPHAGOGASTRODUODENOSCOPY (EGD) [...] procedure are in the results section. after 07/23/2017 Results Surgical pathology request (05/08/2018 11:00 AM) [facility] DEPARTMENT OF PATHOLOGY AND GENOMIC MEDICINE Surgical pathology report See link below for PDF [facility] DEPARTMENT OF Lab Report PATHOLOGY AND GENOMIC MEDICINE Result status This is Final Report to [facility] DEPARTMENT OF [id number] PATHOLOGY AND GENOMIC MEDICINE Performing Organization Address City/[facility] Phone Number [facility] DEPARTMENT OF PATHOLOGY [address] [place] [address] AND PhotoT[employer] ECG 12 lead (05/08/2018 10:56 AM)Only the most recent of3 resultswithin the time period is included. Ventricular rate 62 [facility]USE Atrial rate 62 [facility] SC interval 198 [facility] QRSD interval 138 [...] on 05/08/2018 11:15:44 AM Performing Organization Address City/[facility] Phone Number [facility] MUSE [address] [place] [address] POC glucose (05/08/2018 8:40 AM)Only the most recent of27 resultswithin the time period is included. POC glucose 122 (H) 65 - 99 mg/dL [facility] DEPARTMENT OF PATHOLOGY AND Comment: GENOMIC MEDICINE No Action Needed Meter ID: [id number] Mud Tank Operator: Heber Zapata Performing Organization Address City/[facility]/Zipcode Phone Number [facility] DEPARTMENT OF PATHOLOGY [address] [place] [address] AND GENOMIC MEDICINE Estimated GFR (01/27/2018 4:45 AM)Only the most recent of8 resultswithin the time period is included. GFR Non Af Amer >90 mL/min/1.73 m2 [facility] DEPARTMENT OF PATHOLOGY AND GENOMIC MEDICINE GFR Af Amer >90 mL/min/1.73 m2 [facility] DEPARTMENT OF Comment: PATHOLOGY AND GENOMIC Chronic [...] specimen Performing Organization Address City/State/Zipcode Phone Number [facility] DEPARTMENT OF PATHOLOGY AND [address] [place] [address] [facility] CBC with platelet and differential (01/27/2018 4:45 AM)Only the most recent of7 resultswithin the time period is included. WBC 4.44 (L) 4.50 - 11.00 k/uL [facility] DEPARTMENT OF PATHOLOGY AND GENOMIC MEDICINE RBC 3.21 (L) 4.40 - 6.00 m/uL [facility] DEPARTMENT OF PATHOLOGY AND GENOMIC MEDICINE HGB 10.9 (L) 14.0 - 18.0 g/dL [facility] DEPARTMENT OF PATHOLOGY AND GENOMIC MEDICINE HCT 32.0 (L) 41.0 - 51.0 % [facility] DEPARTMENT OF PATHOLOGY AND GENOMIC MEDICINE MCV 99.7 82.0 - 100.0 fL [facility] DEPARTMENT OF PATHOLOGY AND GENOMIC MEDICINE MCH 34.0 27.0 - 34.0 pg [facility] DEPARTMENT OF PATHOLOGY AND GENOMIC MEDICINE MCHC 34.1 31.0 - 37.0 g/dL [facility] DEPARTMENT OF PATHOLOGY AND GENOMIC MEDICINE RDW - SD 49.9 37.0 - 55.0 fL [facility] DEPARTMENT OF PATHOLOGY AND GENOMIC MEDICINE MPV 9.9 8.8 - 13.2 fL [facility] DEPARTMENT OF PATHOLOGY AND GENOMIC MEDICINE Platelet count 117 (L) 150 - 400 k/uL [facility] DEPARTMENT OF PATHOLOGY AND GENOMIC MEDICINE Nucleated RBC 0.00 /100 WBC [facility] DEPARTMENT OF PATHOLOGY AND GENOMIC MEDICINE Neutrophils 50.3 39.0 - 69.0 % [facility] DEPARTMENT OF PATHOLOGY AND GENOMIC MEDICINE Lymphocytes 34.5 25.0 - 45.0 % [facility] DEPARTMENT OF PATHOLOGY AND GENOMIC MEDICINE Monocytes 9.9 0.0 - 10.0 % [facility] DEPARTMENT OF PATHOLOGY AND GENOMIC MEDICINE Eosinophils 4.1 0.0 - 5.0 % [facility] DEPARTMENT OF PATHOLOGY AND GENOMIC MEDICINE Basophils 0.7 0.0 - 1.0 % [facility] DEPARTMENT OF PATHOLOGY AND GENOMIC MEDICINE Immature granulocytes 0.5Comment: 0.0 - 1.0 % [facility] DEPARTMENT OF "Immature PATHOLOGY AND GENOMIC granulocytes" MEDICINE (promyelocytes, myelocytes, metamyelocytes) Specimen Blood Performing Organization Address City/[facility]/Zipcode Phone Number [facility] DEPARTMENT OF PATHOLOGY AND [address] [place] [address] Hemoglobin A1c (01/27/2018 4:45 AM) Hemoglobin A1C 6.3 (H) 4.0 - 5.6 % [facility] DEPARTMENT OF PATHOLOGY Comment: [facility] HbA1c cutoffs for diagnosing diabetes: 4.0% - 5.6%=normal 5.7% - 6.4%=increased risk for diabetes (prediabetes) >=6.5%=diabetes Goals for glycemic control (ADA 2016) < 7.0%Target for non adults with diabetes. More or less stringent targets may be appropriate for individual patients. <7.5% Target for Children and adolescents with type 1 diabetes. Specimen Blood Performing Organization Address City/[facility] Phone Number [facility] AND [address] [place] [address] Comprehensive metabolic panel (01/27/2018 4:45 AM)Only the most recent of5 resultswithin the time period is included. Sodium 141 135 - 148 mEq/L [facility] DEPARTMENT OF PATHOLOGY AND GENOMIC MEDICINE Potassium 3.9 3.5 - 5.0 mEq/L [facility] DEPARTMENT OF PATHOLOGY AND GENOMIC MEDICINE Chloride 102 98 - 112 mEq/L [facility] DEPARTMENT OF PATHOLOGY AND GENOMIC MEDICINE CO2 27 24 - 31 mEq/L [facility] DEPARTMENT OF PATHOLOGY AND GENOMIC MEDICINE Anion gap 12 7 - 15 mEq/L [facility] DEPARTMENT OF Comment: PATHOLOGY AND GENOMIC Starting from December , anion gap calculation MEDICINE no longer incorporates potassium. Please note the change. BUN 10 8 - 23 mg/dL [facility] DEPARTMENT OF PATHOLOGY AND GENOMIC MEDICINE Creatinine 0.7 0.7 - 1.2 mg/dL [facility] DEPARTMENT OF PATHOLOGY AND GENOMIC MEDICINE Glucose 205 (H) 65 - 99 mg/dL [facility] DEPARTMENT OF PATHOLOGY AND GENOMIC MEDICINE Calcium 8.6 (L) 8.8 - 10.2 mg/dL [facility] DEPARTMENT OF PATHOLOGY AND GENOMIC MEDICINE Protein 5.9 (L) 6.3 - 8.3 g/dL [facility] DEPARTMENT OF Comment: PATHOLOGY AND GENOMIC 4.6-7.0 g/dL MEDICINE 1 week 4.4-7.6 g/dL 7 months-1year5.1-7.3 g/dL 1-2 years5.6-7.5 g/dL >3 years6.0-8.0 g/dL 18-150 6.3-8.3 g/dL Albumin 2.7 (L) 3.5 - 5.0 g/dL [facility] DEPARTMENT OF PATHOLOGY AND GENOMIC MEDICINE A/G ratio 0.8 0.7 - 3.8 [facility] DEPARTMENT OF PATHOLOGY AND GENOMIC MEDICINE Alkaline phosphatase 62 40 - 129 U/L [facility] DEPARTMENT OF PATHOLOGY AND GENOMIC MEDICINE AST 52 (H) 10 - 50 U/L [facility] DEPARTMENT OF PATHOLOGY AND GENOMIC MEDICINE ALT 53 (H) 5 - 50 U/L [facility] DEPARTMENT OF PATHOLOGY AND GENOMIC MEDICINE Total bilirubin 0.9 0.0 - 1.2 mg/dL [facility] DEPARTMENT OF PATHOLOGY AND GENOMIC [facility] Specimen Plasma specimen Performing Organization Address City/[facility] Phone Number [facility] DEPARTMENT OF PATHOLOGY AND [address] [place] [address] Alpha fetoprotein (01/26/2018 4:00 AM)Only the most recent of2 resultswithin the time period is included. Alpha fetoprotein 1.5 0.0 - 8.3 ng/mL [facility] DEPARTMENT OF Comment: PATHOLOGY AND GENOMIC The Padma 8000 AFP immunoassay was used. MEDICINE Results obtained with different assay methods or kits should not be used interchangeably and may be different. Specimen Serum Performing Organization Address City/[facility] Phone Number [facility] DEPARTMENT OF PATHOLOGY AND [address] [place] [phone] [facility] Phosphorus level (01/26/2018 4:00 AM)Only the most recent of3 resultswithin the time period is included. Phosphorus 3.3 2.4 - 4.5 mg/dL [facility] DEPARTMENT OF PATHOLOGY AND GENOMIC MEDICINE Specimen Plasma specimen Performing Organization Address [facility] Phone Number [facility] DEPARTMENT OF PATHOLOGY AND [address] [place] [address] Magnesium level (01/26/2018 4:00 AM)Only the most recent of3 resultswithin the time period is included. Magnesium 1.9 1.6 - 2.4 mg/dL [facility] DEPARTMENT OF PATHOLOGY AND GENOMIC MEDICINE Specimen Plasma specimen Performing Organization Address [facility] Phone Number [facility] DEPARTMENT OF PATHOLOGY AND [address] [place] [phone] [place] [address] Hemoglobin & hematocrit (01/25/2018 6:31 PM)Only the most recent of2 resultswithin the time period is included. HGB 10.9 (L) 14.0 - 18.0 g/dL [facility] DEPARTMENT OF PATHOLOGY AND GENOMIC MEDICINE HCT 31.8 (L) 41.0 - 51.0 % [facility] DEPARTMENT OF PATHOLOGY AND GENOMIC MEDICINE Specimen Blood Performing Organization Address [facility] Phone Number [facility] DEPARTMENT OF PATHOLOGY AND [address] [place] [phone] [place] [address] XR Chest 1 Vw Portable (01/25/2018 10:04 [...] cardiac failure. Noacute abnormality in the chest. [id number] Procedure Note Interface, Radiology Results Incoming - [...] failure. No acute abnormality in the chest. [id number] Performing Organization Address City/[facility]/Zipcode Phone Number [facility] [address] [place] [phone] Hepatic function panel (01/25/2018 9:39 AM) Albumin 2.8 (L) 3.5 - 5.0 g/dL [facility] DEPARTMENT OF PATHOLOGY AND GENOMIC MEDICINE Total bilirubin 0.8 0.0 - 1.2 mg/dL [facility] DEPARTMENT OF PATHOLOGY AND GENOMIC MEDICINE Bilirubin direct 0.3 0.0 - 0.3 mg/dL [facility] DEPARTMENT OF PATHOLOGY AND GENOMIC MEDICINE Alkaline phosphatase 52 40 - 129 U/L [facility] DEPARTMENT OF PATHOLOGY AND GENOMIC MEDICINE Protein 6.0 (L) 6.3 - 8.3 g/dL [facility] DEPARTMENT OF Comment: PATHOLOGY AND GENOMIC Burney 4.6-7.0 g/dL MEDICINE 1 week 4.4-7.6 g/dL 7 months-1year5.1-7.3 g/dL 1-2 years5.6-7.5 g/dL >3 years6.0-8.0 g/dL 18-150 6.3-8.3 g/dL ALT 56 (H) 5 - 50 U/L [facility] DEPARTMENT OF PATHOLOGY AND GENOMIC MEDICINE AST 71 (H) 10 - 50 U/L [facility] DEPARTMENT OF PATHOLOGY AND GENOMIC MEDICINE Specimen Plasma specimen Performing Organization Address [facility] Phone Number [facility] DEPARTMENT PATHOLOGY AND [address] [place] [phone] [facility] Ionized calcium (01/25/2018 4:20 AM)Only the most recent of3 resultswithin the time period is included. pH 7.53 [facility] DEPARTMENT OF PATHOLOGY AND GENOMIC MEDICINE Ionized calcium 1.09 (L) 1.11 - 1.32 mmol/L [facility] DEPARTMENT OF PATHOLOGY AND GENOMIC MEDICINE Specimen Plasma specimen Performing Organization Address [facility] Phone Number [facility] DEPARTMENT [facility] AND [address] [place] [phone] [facility] MEDICINE Basic metabolic panel (01/25/2018 4:20 AM)Only the most recent of3 resultswithin the time period is included. Sodium 145 135 - 148 mEq/L [facility] DEPARTMENT OF PATHOLOGY AND GENOMIC MEDICINE Potassium 3.8 3.5 - 5.0 mEq/L [facility] DEPARTMENT OF PATHOLOGY AND GENOMIC MEDICINE Chloride 107 98 - 112 mEq/L [facility] DEPARTMENT OF PATHOLOGY AND GENOMIC MEDICINE CO2 27 24 - 31 mEq/L [facility] DEPARTMENT OF PATHOLOGY AND GENOMIC MEDICINE Anion gap 11 7 - 15 mEq/L [facility] DEPARTMENT OF PATHOLOGY Comment: AND [facility] Starting from December , anion gap calculation no longer incorporates potassium. Please note the change. BUN 25 (H) 8 - 23 mg/dL [facility] DEPARTMENT OF PATHOLOGY AND GENOMIC MEDICINE Creatinine 0.7 0.7 - 1.2 mg/dL [facility] DEPARTMENT OF PATHOLOGY AND GENOMIC MEDICINE Glucose 196 (H) 65 - 99 mg/dL [facility] DEPARTMENT OF PATHOLOGY AND GENOMIC MEDICINE Calcium 8.2 (L) 8.8 - 10.2 mg/dL [facility] DEPARTMENT OF PATHOLOGY AND GENOMIC MEDICINE Specimen Plasma specimen Performing Organization Address City/[facility] Phone Number [facility] DEPARTMENT OF PATHOLOGY AND [address] [place] [address] Lactic acid level (01/24/2018 7:23 PM)Only the most recent of3 resultswithin the time period is included. Lactic acid 1.6 0.5 - 2.2 mmol/L [facility] DEPARTMENT OF PATHOLOGY AND GENOMIC MEDICINE Specimen Plasma specimen Performing Organization Address City/[facility] Phone Number [facility] DEPARTMENT OF PATHOLOGY AND [address] [place] [address] [place] Abdominal Doppler (01/24/2018 6:25 PM) Narrative [...] and SMV are identified and are patent. [id number] Procedure Note Hm Interface, Radiology Results Incoming [...] and SMV are identified and are patent. [facility]-[id number] Performing Organization Address City/State/Zipcode Phone Number [facility] [address] [place] [address] US Abdomen Complete (01/24/2018 6:25 PM) Narrative Performed At EXAM: US ABDOMEN COMPLETE [facility] CLINICAL HISTORY:CIRRHOSIS COMPARISON: CT, 07/25/2017 FINDINGS: Liver:The [...] cirrhosis. Splenomegaly. Small bilateral renal small cysts. [facility]-[id number] Procedure Note [facility], Radiology Results Incoming - 01/24/2018 11:36 PM [...] cirrhosis. Splenomegaly. Small bilateral renal small cysts. [id number] Performing Organization Address City/State/Zipcode Phone Number [facility] [address] [place] [address] Echocardiogram complete w contrast and 3D if needed (01/24/2018 12:17 PM) Narrative Performed At [facility] Echocardiography Report [address] [facility] [address]Name:KERON BRIZUELA [facility].ID:[id number] .Date: 01/24/2018Refer.MD:ANNE RAMÍREZ MD Exam Time: 10:40:00 AM Study Type:Routine Echo Height:74inWeight: 242lb BSA: 2.36 m2 DOBAge:1950,67Y Sex: MALEBP:130/67 HR:77 bpmSonogrphr: Pam Ortega RDCS Pat. Stat.:Inpatient Room:[facility] 201-03 Study Status:Final Echo Event ID:[id number] Order ID:[id number] Reason for Study:cirrhosis, evaulate cardiac function, TIPS [...] LVOT TVI29 cmLVOT CI4.1 l/m/m2 LVOT Tm318 ytmgOY13 bpm LVOT SV120.3 ml AV For Flow/Valve Assess AV pkVel 208.3 cm/s (100-170) AV ET280 msec AV mnVel 118.3 cm/Tom AC/ET 0.4 AV pkPG 17.4 mmHgAV TVI33.2 cm AV Mean G7.3 mmHgAVpkAcRt 2655.6 cm/s2 AV AC101 msec (83-118) 2D [facility] [place] LVOT 2.3 cmLA Ds4.7 cm LVIDd5.8 cmIndex2.5 cm/m Ao Rtd 3.9 cm Index1.6 cm/m LVIDs2.9 cm LV Owiw717.1 g(122-174) LV%fs 50.2 % LVM Index 98.4 [...] 01/24/2018 5:03 PM CDT Echocardiography Report [address] [place] [address] Pat.Name: KERON BRIZUELA Kylie.ID: [id number] .Date: 01/24/2018 Refer.MD: ANNE RAMÍREZ MD Exam Time: 10:40:00 AM Study Type:Routine Echo Height: 74in Weight: 242lb BSA: 2.36 m2 Age: 2 1950,67Y Sex: MALE BP: 130/67 HR: 77 bpm Sonogrphr: Pam Ortega RDCS Pat. Stat.:Inpatient Room: [place] [address] Study Status:Final Echo Event ID:[id number] Order ID: [id number] Reason for Study:cirrhosis, evaulate cardiac function, TIPS [...] AC 101 msec (83-118) 2D [facility] [place] LVOT 2.3 cm LA Ds 4.7 cm [...] Organization Address City/State/Zipcode Phone Number [facility] [address] [place] [address] Gastrointestinal panel (01/24/2018 9:38 AM) Gastrointestinal panel Negative for all pathogens tested: [facility] DEPARTMENT OF Negative for Salmonella PATHOLOGY AND [...] - Not otherwise specified Performing Organization Address [facility] Phone Number [facility] DEPARTMENT OF PATHOLOGY AND [address] [place] [address] Troponin (01/24/2018 9:38 AM)Only the most recent of5 resultswithin the time period is included. Troponin <0.30 0.00 - 0.30 ng/mL [facility] DEPARTMENT OF PATHOLOGY Comment: AND GENOMIC MEDICINE 0.30 - 1.49 ng/mlMay indicate increased risk of acute coronary syndrome. >=1.5 ng/mlConsistent with acute myocardial infarction. The diagnostic value of a single normal or non-diagnostic result is questionable.Serial samples at 2-6 hour intervals are required to rule out acute myocardial injury. Specimen Plasma specimen Performing Organization Address [facility] Phone Number [facility] DEPARTMENT OF PATHOLOGY AND [address] [place] [address] [employer] [facility] Beta hydroxybutyrate (01/24/2018 4:55 AM) Beta hydroxybutyrate 1.50 (H) 0.02 - 0.27 mmol/L [facility] DEPARTMENT OF PATHOLOGY AND [employer] [facility] Specimen Serum Performing Organization Address [facility] Phone Number [facility] DEPARTMENT OF PATHOLOGY AND [address] [place] [address] [employer] [facility] Potassium level (01/24/2018 4:55 AM) Potassium 5.6 (H) 3.5 - 5.0 mEq/L [facility] DEPARTMENT OF PATHOLOGY AND GENOMIC MEDICINE Specimen Plasma specimen Performing Organization Address City/[facility]/Zipcode Phone Number [facility] DEPARTMENT OF PATHOLOGY AND [address] [place] [phone] [facility] Urinalysis screen and microscopy, with reflex to culture (01/24/2018 3:50 AM) Only the most recent of2 resultswithin the time period is included. Specimen site Clean catch [facility] DEPARTMENT OF PATHOLOGY AND GENOMIC MEDICINE Color, UA Straw [facility] DEPARTMENT OF PATHOLOGY AND GENOMIC MEDICINE Appearance, UA Clear [facility] DEPARTMENT OF PATHOLOGY AND GENOMIC MEDICINE Specific gravity, UA 1.028 1.001 - 1.035 [facility] DEPARTMENT OF PATHOLOGY AND GENOMIC MEDICINE pH, UA 7.0 5.0 - 8.5 [facility] DEPARTMENT OF PATHOLOGY AND GENOMIC MEDICINE Protein, UA Negative Negative [facility] DEPARTMENT OF PATHOLOGY AND GENOMIC MEDICINE Glucose, UA 3+ (A) Negative [facility] DEPARTMENT OF Comment: PATHOLOGY AND GENOMIC GLUKT results called to and read back by GRIS COOK/YENIFER at 06:33 MEDICINE 01/24/2018 by NIKO. Ketones, UA 1+ (A) Negative [facility] DEPARTMENT OF PATHOLOGY AND GENOMIC MEDICINE Bilirubin, UA Negative Negative [facility] DEPARTMENT OF PATHOLOGY AND GENOMIC MEDICINE Blood, UA Small (A) Negative [facility] DEPARTMENT OF PATHOLOGY AND GENOMIC MEDICINE Nitrite, UA Negative Negative [facility] DEPARTMENT OF PATHOLOGY AND GENOMIC MEDICINE Urobilinogen, UA <2.0 <2.0 [facility] DEPARTMENT OF PATHOLOGY AND GENOMIC MEDICINE Leukocyte esterase, UA Negative Negative [facility] DEPARTMENT OF PATHOLOGY AND GENOMIC MEDICINE Epithelial cells, UA <1 /HPF [facility] DEPARTMENT OF PATHOLOGY AND GENOMIC MEDICINE WBC, UA <1 0 - 1 /HPF [facility] DEPARTMENT OF PATHOLOGY AND GENOMIC MEDICINE RBC, UA 2 0 - 5 /HPF [facility] DEPARTMENT OF PATHOLOGY AND GENOMIC MEDICINE Bacteria, UA None seen None seen [facility] DEPARTMENT OF PATHOLOGY AND GENOMIC MEDICINE Yeast, UA None seen [facility] DEPARTMENT OF PATHOLOGY AND GENOMIC MEDICINE Yeast with pseudohyphae, None seen [facility] DEPARTMENT OF UA PATHOLOGY AND GENOMIC MEDICINE Specimen Urine Performing Organization Address City/State/Zipcode Phone Number [facility] DEPARTMENT OF PATHOLOGY AND [address] [place] [address] [facility] Urine drugs of abuse screen (01/24/2018 3:50 AM) Amphetamine screen, urine Negative [facility] DEPARTMENT OF PATHOLOGY AND GENOMIC MEDICINE Barbiturate screen, urine Negative [facility] DEPARTMENT OF PATHOLOGY AND GENOMIC MEDICINE Benzodiazepine screen, Negative [facility] DEPARTMENT OF urine PATHOLOGY AND GENOMIC MEDICINE Cannabinoid screen, urine Negative [facility] DEPARTMENT OF PATHOLOGY AND GENOMIC MEDICINE Cocaine screen, urine Negative [facility] DEPARTMENT OF PATHOLOGY AND GENOMIC MEDICINE Methadone metabolite Negative [facility] DEPARTMENT OF (EDDP), urine PATHOLOGY AND GENOMIC MEDICINE Opiates screen, urine Negative [facility] DEPARTMENT OF PATHOLOGY AND GENOMIC MEDICINE Oxycodone screen, urine Negative [facility] DEPARTMENT OF PATHOLOGY AND GENOMIC MEDICINE Phencyclidine screen, urine Negative [facility] DEPARTMENT OF PATHOLOGY AND GENOMIC MEDICINE Tricyclic screen, urine Negative [facility] DEPARTMENT OF Comment: PATHOLOGY AND GENOMIC Drug screen minimum concentration of detectability MEDICINE Rewzsnjbncxn0670 ng/mL Barbiturates 200 ng/mL Piliuknvovagcos679 ng/mL Rwswzxn342 ng/mL Belylvmsb816 ng/mL Qfeperv783 ng/mL Zeuakctip867 ng/mL Phencyclidine 25 ng/mL Zxokkabskmbp55 ng/mL Cicqqtlqtt5219 ng/mL Negative test results indicates presumptive evidence of lack of clinically significant drug concentration in this urine specimen. Positive test results are presumptive evidence of clinically significant drug concentration in this urine specimen. Testing performed for medical purposes only. Specimen Urine Performing Organization Address City/[facility] Phone Number [facility] DEPARTMENT OF PATHOLOGY AND [address] [place] [address] Partial thromboplastin time, activated (01/24/2018 3:50 AM)Only the most recent of2 resultswithin the time period is included. PTT 28.5 23.0 - 36.0 sec [facility] DEPARTMENT OF PATHOLOGY Comment: AND [facility] PTT therapeutic range for unfractionated heparin is 61.0-112.0 seconds which corresponds to Anti-Xa 0.3-0.7 U/ml. Specimen Blood Performing Organization Address [facility]coin Phone Number [facility] DEPARTMENT OF PATHOLOGY AND [address] [place] [address] Prothrombin time with INR (01/24/2018 3:50 AM)Only the most recent of2 resultswithin the time period is included. Prothrombin time 16.9 (H) 12.0 - 15.0 sec [facility] DEPARTMENT OF PATHOLOGY AND [facility] MEDICINE INR 1.4 [facility] DEPARTMENT OF Comment: PATHOLOGY AND GENOMIC The International Normalized Ratio (INR) is a therapeutic MEDICINE monitoring tool for patients who are stable on oral anticoagulant therapy. An INR of 2.0-3.0 is suggested for deep vein thrombosis/pulmonary embolism. Specimen Blood Performing Organization Address City/[facility]/Zipcode Phone Number [facility] DEPARTMENT OF PATHOLOGY AND [address] [place] [address] Fibrinogen (01/24/2018 3:50 AM) Fibrinogen 349 200 - 450 mg/dL [facility] DEPARTMENT OF PATHOLOGY AND GENOMIC MEDICINE Specimen Blood Performing Organization Address [facility] Phone Number [facility] DEPARTMENT OF PATHOLOGY AND [address] [place] [address] D-dimer (01/24/2018 3:50 AM) D-dimer 0.99 (H) 0.00 - 0.40 ug/mL FEU [facility] DEPARTMENT OF Comment: PATHOLOGY AND GENOMIC Units [...] and malignancies. Specimen Blood Performing Organization Address [facility] Phone Number [facility] DEPARTMENT OF PATHOLOGY AND [address] [place] [address] MEDICINE Type and screen (01/24/2018 3:50 AM) ABO grouping O [facility] DEPARTMENT OF PATHOLOGY AND GENOMIC MEDICINE Rh type NEG [facility] DEPARTMENT OF PATHOLOGY AND GENOMIC MEDICINE Antibody screen (gel) NEG [facility] DEPARTMENT OF PATHOLOGY AND GENOMIC MEDICINE Specimen Blood Performing Organization Address [facility]/Zipcode Phone Number [facility] DEPARTMENT OF PATHOLOGY AND [address] [place] [address] Urine culture (01/24/2018 3:50 AM)Only the most recent of2 resultswithin the time period is included. Urine culture SEE COMMENTComment: Bacteriuria [facility] DEPARTMENT OF PATHOLOGY screen negative. AND GENOMIC MEDICINE Performing Organization Address City/[facility]/Zipcode Phone Number [facility] DEPARTMENT OF PATHOLOGY AND [address] [place] [address] Lipase level (01/24/2018 3:50 AM)Only the most recent of2 resultswithin the time period is included. Lipase 23 13 - 60 U/L [facility] DEPARTMENT OF PATHOLOGY AND GENOMIC MEDICINE Specimen Blood Performing Organization Address City/[facility] Phone Number [facility] DEPARTMENT OF PATHOLOGY AND [address] [place] [address] Venous blood gas (01/24/2018 3:50 AM) pH, venous 7.36 7.32 - 7.42 [facility] DEPARTMENT OF PATHOLOGY AND GENOMIC MEDICINE pCO2, venous 42 (L) 45 - 51 mmHg [facility] DEPARTMENT OF PATHOLOGY AND GENOMIC MEDICINE pO2, venous 65 (H) 25 - 40 mmHg [facility] DEPARTMENT OF PATHOLOGY AND GENOMIC MEDICINE Base excess, venous -2 -2 - 2 meq/L [facility] DEPARTMENT OF PATHOLOGY AND GENOMIC MEDICINE O2 saturation, venous 91 (H) 40 - 70 % [facility] DEPARTMENT OF PATHOLOGY AND GENOMIC MEDICINE Bicarbonate, venous 23.1 21.0 - 28.0 mmol/L [facility] DEPARTMENT OF PATHOLOGY AND GENOMIC MEDICINE Specimen Blood Performing Organization Address [facility]code Phone Number [facility] DEPARTMENT OF PATHOLOGY AND [address] [place] [address] Bilirubin direct (01/24/2018 3:50 AM) Bilirubin direct 0.3 0.0 - 0.3 mg/dL [facility] DEPARTMENT OF PATHOLOGY AND GENOMIC MEDICINE Specimen Blood Performing Organization Address [facility] Phone Number [facility] DEPARTMENT OF PATHOLOGY AND [address] [place] [address] Amylase level (01/24/2018 3:50 AM)Only the most recent of2 resultswithin the time period is included. Amylase 43 28 - 100 U/L [facility] DEPARTMENT OF PATHOLOGY AND GENOMIC MEDICINE Specimen Blood Performing Organization Address [facility]code Phone Number [facility] DEPARTMENT OF PATHOLOGY AND [address] [place] [address] Alcohol level, blood (01/24/2018 3:50 AM) Alcohol None Detected mg/dL [facility] DEPARTMENT OF PATHOLOGY Comment: AND GENOMIC MEDICINE Normal None Detected Legal Intoxication in [place]80 mg/dL (0.08%) - Whole Blood Toxic [id number] mg/dL (0.2%) Potentially [id number] - 500 mg/dL (0.35 - 0.5%) Alcohol percent None Detected % [facility] DEPARTMENT OF PATHOLOGY AND GENOMIC MEDICINE Specimen Blood Performing Organization Address City/[facility] Phone Number [facility] DEPARTMENT OF PATHOLOGY AND [address] [place] [address] Acetaminophen level (01/24/2018 3:50 AM) Acetaminophen level <15.0 10.0 - 30.0 ug/mL [facility] DEPARTMENT OF Comment: PATHOLOGY AND GENOMIC Therapeutic 10-30 ug/mL MEDICINE Possible Toxicity 150-200 ug/mL Probable Toxicity >200 ug/mL Specimen Blood Performing Organization Address City/[facility] Phone Number [facility] DEPARTMENT OF PATHOLOGY AND [address] [place] [address] Prothrombin mutation, factor II, by PCR (07/26/2017 6:00 PM) Prothrombin gene mutation Normal Normal [facility] DEPARTMENT OF PATHOLOGY AND GENOMIC MEDICINE Prothrombin gene mutation See link below for PDF [facility] DEPARTMENT OF Lab ReportComment: Case PATHOLOGY AND GENOMIC Number: [id number] MEDICINE Specimen Blood Performing Organization Address [facility] Phone Number [facility] DEPARTMENT OF PATHOLOGY AND [address] [place] [address] Factor V leiden by PCR (07/26/2017 6:00 PM) Factor V Leiden Normal [facility] DEPARTMENT OF PATHOLOGY AND GENOMIC MEDICINE Factor V Leiden See link below for PDF Lab [facility] DEPARTMENT OF PATHOLOGY AND ReportComment: Case Number: GENOMIC MEDICINE [id number] Specimen Blood Performing Organization Address [facility] Phone Number [facility] DEPARTMENT OF PATHOLOGY AND [address] [place] [address] KAYLYNN 2 mutation detection by PCR (07/26/2017 5:00 PM) KAYLYNN-2 mutation ID Not-Detected Not-Detected [facility] DEPARTMENT OF PATHOLOGY AND GENOMIC MEDICINE KAYLYNN-2 amplification Not-Detected Not-Detected [facility] DEPARTMENT OF PATHOLOGY AND GENOMIC MEDICINE KAYLYNN 2 mutation detection, See link below for [facility] DEPARTMENT OF PCR PDF Lab PATHOLOGY AND GENOMIC ReportComment: Case MEDICINE Number: [id number] Specimen Blood Performing Organization Address City/[facility] Phone Number [facility] DEPARTMENT OF PATHOLOGY AND [address] [place] [address] Free and total protein S (07/26/2017 5:00 PM) Protein S Ag, free 74 62 - 160 % [facility] DEPARTMENT OF PATHOLOGY AND GENOMIC MEDICINE Protein S Ag, total 94 71 - 150 % [facility] DEPARTMENT OF PATHOLOGY AND GENOMIC MEDICINE Specimen Blood Performing Organization Address City/[facility] Phone Number [facility] DEPARTMENT OF PATHOLOGY AND [address] [place] [address] GENOMIC MEDICINE Beta-2 glycoprotein 1 Abs, IgG & IgM (07/26/2017 5:00 PM) Beta-2 glycoprotein 1 0 0 - 20 [facility] antibody, IgG Beta-2 glycoprotein 1 1 0 - 20 [facility] antibody, IgM Comment: INTERPRETIVE INFORMATION: [id number] I, IgG and IgM Antibody The persistent [...] other criteria phospholipid antibody tests. Performed by [employer], [address] [place], [place] [id number] [email or web address], Edilson Winslow MD - Lab. Director Specimen Serum Performing Organization Address City/[facility]/Zipcode Phone Number [facility] [address] [place] [address] Functional protein S (07/26/2017 5:00 PM) Functional protein S 55 (L) 74 - 160 % [facility] DEPARTMENT OF Comment: PATHOLOGY AND GENOMIC Functional Protein S performed.If result is decreased Total MEDICINE and Free Protein S Antigen will be performed. Specimen Blood Performing Organization Address City/[facility]/Zipcode Phone Number [facility] DEPARTMENT OF PATHOLOGY AND [address] [place] [address] [facility] Functional protein C (07/26/2017 5:00 PM) Functional protein C 61 (L) 70 - 165 % [facility] DEPARTMENT OF PATHOLOGY AND GENOMIC MEDICINE Specimen Blood Performing Organization Address [facility]/Zipcode Phone Number [facility] DEPARTMENT OF PATHOLOGY AND [address] [place] [address] [facility] Lupus anticoagulant panel (07/26/2017 5:00 PM) Prothrombin time 15.8 (H) 12.0 - 15.0 sec [facility] DEPARTMENT OF PATHOLOGY AND GENOMIC MEDICINE INR 1.2 [facility] DEPARTMENT OF Comment: PATHOLOGY AND The International Normalized Ratio (INR) is a therapeutic [facility] monitoring tool for patients who are stable on oral anticoagulant therapy. An INR of 2.0-3.0 is suggested for deep vein thrombosis/pulmonary embolism. PTT 38.3 (H) 23.0 - 36.0 sec [facility] DEPARTMENT OF Comment: PATHOLOGY AND PTT therapeutic range for unfractionated heparin is [facility] MEDICINE 61.0-112.0 seconds which corresponds to Anti-Xa 0.3-0.7 U/ml. PTT lupus anticoagulant 36.8 27.0 - 38.0 sec [facility] DEPARTMENT OF Comment: PATHOLOGY AND [...] diagnosis. DRVVT 30.7 29.0 - 46.0 sec [facility] DEPARTMENT OF PATHOLOGY AND [employer] MEDICINE Specimen Blood Performing Organization Address City/[facility]/Zipcode Phone Number [facility] DEPARTMENT OF PATHOLOGY [address] [place] [address] AND [facility] MEDICINE Cardiolipin antibodies (07/26/2017 5:00 PM) Cardiolipin IgG 1 0 - 14 GPL [facility] DEPARTMENT OF PATHOLOGY AND Comment: GENOMIC MEDICINE Negative=<15 GPL Indeterminate=15-20 GPL Positive=>20 GPL Cardiolipin IgM 6 0 - 12 MPL [facility] DEPARTMENT OF PATHOLOGY AND Comment: GENOMIC MEDICINE Negative=<13 MPL Indeterminate=13-20 MPL Positive=>20 MPL Specimen Blood Performing Organization Address [facility] Phone Number [facility] DEPARTMENT OF PATHOLOGY AND [address] [place] [phone] [facility] Antithrombin III level (07/26/2017 5:00 PM) Antithrombin III 64 (L) 80 - 130 % [facility] DEPARTMENT OF PATHOLOGY Comment: AND [facility] MEDICINE Low Protein S, Protein C Activity, and Antithrombin Activity consistent with ongoing thrombosis. Repeat in 1 - 2 months. Reviewed by Specimen Blood Performing Organization Address [facility]code Phone Number [facility] DEPARTMENT OF PATHOLOGY AND [address] [place] [phone] [facility] Occult blood, stool (07/25/2017 7:46 PM) Occult blood, stool Negative for occult blood. [facility] DEPARTMENT OF Comment: PATHOLOGY AND GENOMIC Specimen Information MEDICINE Specimen Source: Rectal Swab Specimen Site: Nonpreserved Specimen Rectal swab - Nonpreserved Performing Organization Address City/[facility]code Phone Number [facility] DEPARTMENT OF PATHOLOGY [address] [place] [address] [employer] [address] Abdomen Pelvis W Contrast (07/25/2017 [...] 4.Severe vascular disease. Grossly patent mesenteric arteries. [facility]-[id number] Procedure Note [facility], Radiology Results Incoming - 07/25/2017 7:21 PM [...] Severe vascular disease. Grossly patent mesenteric arteries. [facility]-[id number] Performing Organization Address [facility]coin Phone Number [facility] [address] [place] [address] XR Chest 2 Vw (07/25/2017 6:23 PM) Narrative Performed At Examination:XR CHEST 2 VW RADIANT Clinical History: right sided posterior chest pain Comparison: None. Technique: Frontal and lateral views of the chest Impression: Lungs appear slightly hyperinflated. No focal consolidation or pleural effusion. Heart size and pulmonary vascularity grossly normal. Numerous old fracture deformities are seen in bilateral ribs and clavicles. [facility]-[id number] Procedure Note Hm Interface, Radiology Results Incoming - 07/25/2017 6:27 PM CDT Examination: XR CHEST 2 VW Clinical History: right sided posterior chest pain Comparison: None. Technique: Frontal and lateral views of the chest Impression: Lungs appear slightly hyperinflated. No focal consolidation or pleural effusion. Heart size and pulmonary vascularity grossly normal. Numerous old fracture deformities are seen in bilateral ribs and clavicles. [facility]-[id number] Performing Organization Address [facility] Phone Number [facility] [address] [place] [address] B natriuretic peptide (07/25/2017 5:42 PM) BNP 38 0 - 100 pg/mL [facility] DEPARTMENT OF PATHOLOGY AND GENOMIC MEDICINE Specimen Blood Performing Organization Address [facility] Phone Number [facility] DEPARTMENT OF PATHOLOGY [address] [place] [place] [address] AND [facility] Creatine kinase, total (CPK) (07/25/2017 5:42 PM) Creatine kinase 52 39 - 308 U/L [facility] DEPARTMENT OF PATHOLOGY AND GENOMIC MEDICINE Specimen Plasma specimen Performing Organization Address [facility] Phone Number [facility] DEPARTMENT OF PATHOLOGY [address] [place] [address] AND [employer] MEDICINE after 07/23/2017 Insurance Payer Benefit Plan / Group Subscriber ID Type Phone Address MEDICARE MEDICARE PART A AND B xxxxxxxxxx Medicare [place], [place] AARP AARP SUPPLEMENT xxxxxxxxxxx Commercial 510 [phone] [place] [phone]
--- OUTSIDE RECORDS SUMMARY | 2018-07-24 09:28 | XMS REPORT | Clinical Summary ---
:1950 Author Organization [facility] Address [address] [place] [address] Care Team Providers Name Role Phone Anderson Leonard MD Primary Care Provider Gama Orozco MD Consulting Physician Allergies Active Allergy Reactions Severity Noted Date Comments Temazepam Other (See Comments) High 07/27/2017 Severe agitation. Medications Medication Sig Dispensed Refills Start End Date Status Date metFORMIN Take 1,000 mg by 0 Active (GLUCOPHAGE) 1000 mouth 2 (two) MG tablet times daily with breakfast and dinner. fenofibric acid, Take 135 mg by 0 Active choline, 135 mg mouth daily. capsule nadolol (CORGARD) Take 40 mg by 0 Active 40 MG tablet mouth daily. empagliflozin Take 25 mg by 0 Active (JARDIANCE) 25 mg mouth daily. tablet Missing or L- Theanine 100mg 0 Active Non-Formulary . Medication ranitidine Take 75 mg by 0 Active (ZANTAC) 150 MG mouth 2 (two) tablet times daily . insulin glargine Inject 50 Units 0 Active (LANTUS) 100 subcutaneously. unit/mL injectionIndicatio ns: Other cirrhosis of liver (HCC), Screening for malignant neoplasm, Secondary esophageal varices without bleeding (HCC) cetirizine Take 10 mg by 0 Active (ZYRTEC) 10 MG mouth daily. tabletIndications: Other cirrhosis of liver (HCC), Screening for malignant neoplasm, Secondary esophageal varices without bleeding (HCC) acetaminophen Take 650 mg by 0 Active (TYLENOL) 650 MG mouth daily. CR tabletIndications: Other cirrhosis of liver (HCC), Screening for malignant neoplasm, Secondary esophageal varices without bleeding (HCC) vardenafil Take 20 mg by 0 Active (LEVITRA) 20 MG mouth daily as tabletIndications: needed for Other cirrhosis of Erectile liver (HCC), Dysfunction. Screening for malignant neoplasm, Secondary esophageal varices without bleeding (HCC) folic Take by mouth 0 Active acid/multivit-min/ daily. lutein (CENTRUM SILVER ORAL)Indications: Other cirrhosis of liver (HCC), Screening for malignant neoplasm, Secondary esophageal varices without bleeding (HCC) losartan (COZAAR) Take 50 mg by 0 06/15/20 Discontinued 50 MG tablet mouth daily. 18 glipiZIDE Take 5 mg by mouth 0 06/15/20 Discontinued (GLUCOTROL) 5 MG 2 (two) times 18 tablet daily before meals. tamsulosin Take 0.4 mg by 0 06/15/20 Discontinued (FLOMAX) 0.4 mg mouth daily. 18 Cp24 24 hr capsule Missing or Take 1 tablet by 0 07/29/20 Discontinued Non-Formulary mouth daily 17 Medication Centrum Silver 50 . Missing or Take 500 mg by 0 07/29/20 Discontinued Non-Formulary mouth daily Krill 17 Medication oil . Missing or Take 25 mg by 0 07/29/20 Discontinued Non-Formulary mouth daily 17 Medication Jardiance . Missing or Take 1 capsule by 0 07/29/20 Discontinued Non-Formulary mouth daily L. 17 Medication Theanine . enoxaparin Inject 0.8 mLs 20 Syringe 0 06/15/20 Discontinued (LOVENOX) 120 (120 mg total) 7 18 mg/0.8 mL Syrg subcutaneously every 12 (twelve) hours. apixaban (ELIQUIS) Take 5 mg by mouth 0 06/15/20 Discontinued 5 mg Tab tablet 2 (two) times 18 daily. krill oil 500 mg Take by mouth. 0 06/15/20 Discontinued Cap 18 TURMERIC, BULK, 1,500 mg by 0 06/15/20 Discontinued MISC Miscellaneous 18 route. metFORMIN Take 1,500 mg by 0 06/15/20 Discontinued (GLUCOPHAGE) 1000 mouth. 18 MG tablet Hospital, Clinic, or Ordered Dose Route Frequency Start Date End Date Status Other Facility Administered Medication iopamidol 100 mL IV IMG once as 12/05/2017 12/05/2017 Ended (ISOVUE-370) 76 % needed injection 100 mL Active Problems Problem Noted [...] by the primary care provider. Portal hypertension 11/06/2017 Last Assessment & Plan: Portal hypertension evidenced by varices and hypersplenism. Secondary esophageal varices without bleeding 11/06/2017 Metabolic syndrome 11/06/2017 Last Assessment & [...] Visit Hepatology Benedict Gutierres Other cirrhosis of liver (Primary Dx); MD Geovanna Screening for malignant neoplasm; Artis Valladares Secondary esophageal varices without bleeding (HCC) SARAH Toro 02/02/2018 Telephone Hepatology Benedict Gutierres follow up call from MD Geovanna recent admission 02/02/2018 Telephone Hepatology Masha Dyer, Follow-up RN 12/12/2017 Office Visit Hepatology Benedict Gutierres Other cirrhosis of liver (HCC) (Primary Dx); MD Geovanna Portal hypertension (HCC); Portal vein thrombosis; Metabolic syndrome 12/05/2017 Hospital Encounter Radiology Benedict Gutierres Canceled (Patient) MD Geovanna 12/04/2017 Outside Orders Benedict Gutierres MD 11/14/2017 Abstract Hepatology Analia Milligan RN 11/08/2017 Abstract Hepatology Analia Milligan RN 11/07/2017 Abstract Hepatology Analia Milligan RN 11/06/2017 Office Visit Hepatology Benedict Gutierres Other cirrhosis of liver (Primary Dx); MD Geovanna Screening for malignant neoplasm; Immunity status testing; Portal hypertension (HCC); Secondary esophageal varices without bleeding (HCC); Metabolic syndrome; PVT (portal vein thrombosis); Secondary esophageal varices with bleeding 10/12/2017 Telephone Hepatology Casie Torre Appointment 08/23/2017 Telephone Hepatology Casie Torre Appointment 07/26/2017 - Hospital Encounter General Internal Korey Taylor, 07/29/2017 Medicine MD Leonard, Anderson Hansen MD 07/26/2017 Orders Only Mahad Rivera, ESTEBAN after 07/23/2017 Immunizations Name Dates Previously Given Next Due [...] Assigned at Date Recorded Not on file Job Start Date Occupation Industry Not on file Not on file Not on file Travel History Travel Start Travel End No recent travel history available. Last Filed Vital Signs Vital Sign Reading [...] Team Description 12/06/2018 Office Visit Hepatology Resource, [facility] Health Maintenance Due Date Last Done Comments INFLUENZA VACCINE 06/25/2018 07/27/2017 Procedures Procedure Name Priority Date/Time Associated Comments Diagnosis CBC W/PLT COUNT & AUTO Routine 06/15/2018 2:14 Other cirrhosis of Results for this DIFFERENTIAL PM CDT liver procedure are in Screening for the results malignant neoplasm section. Secondary esophageal varices without bleeding (HCC) ALPHA FETOPROTEIN Routine 06/15/2018 2:14 Other cirrhosis of Results for this (AFP), TUMOR MARKER PM CDT liver procedure are in Screening for the results malignant neoplasm section. Secondary esophageal varices without bleeding (HCC) PROTHROMBIN TIME/INR Routine 06/15/2018 2:14 Other cirrhosis of Results for this PM CDT liver procedure are in Screening for the results malignant neoplasm section. Secondary esophageal varices without bleeding (HCC) CBC W/PLT COUNT & AUTO Routine 06/15/2018 2:14 Other cirrhosis of Results for this DIFFERENTIAL PM CDT liver procedure are in Screening for the results malignant neoplasm section. Secondary esophageal varices without bleeding (HCC) HEPATIC FUNCTION PANEL Routine 06/15/2018 2:14 Other cirrhosis of Results for this PM CDT liver procedure are in Screening for the results malignant neoplasm section. Secondary esophageal varices without bleeding (HCC) BASIC METABOLIC PANEL Routine 06/15/2018 2:14 Other cirrhosis of Results for this (7) PM CDT liver procedure are in Screening for the results malignant neoplasm section. Secondary esophageal varices without bleeding (HCC) CT ABDOMEN Routine 12/05/2017 10:35 PVT (portal vein Results for this WITH/WITHOUT CONTRAST AM CDT thrombosis) procedure are in the results section. POCT-CREATININE Routine 12/05/2017 10:20 Results for this AM CDT procedure are in the results section. CBC W/PLT COUNT & AUTO Routine 11/06/2017 1:03 Other cirrhosis of Results for this DIFFERENTIAL PM [employer]IMMING CUT[employer] MACHINE liver procedure are in the results section. ROBERT TITER AND PATTERN Routine 11/06/2017 1:03 Other cirrhosis of Results for this PM [employer]ACHINE liver procedure are in the results section. ALPHA FETOPROTEIN Routine 11/06/2017 1:03 Other cirrhosis of Results for this (AFP), TUMOR MARKER PM [employer]ACHINE liver procedure are in the results section. MITOCHONDRIA M2 Routine 11/06/2017 1:03 Other cirrhosis of Results for this ANTIBODY (IGG) PM [employer]ACH[employer] liver procedure are in the results section. ACTIN (SMOOTH MUSCLE) Routine 11/06/2017 1:03 Other cirrhosis of Results for this ANTIBODY, IGG PM [employer] liver procedure are in the results section. ANTI-NUCLEAR ANTIBODY Routine 11/06/2017 1:03 Other cirrhosis of Results for this (ROBERT) PM [employer]ACHINE liver procedure are in the results section. CERULOPLASMIN Routine 11/06/2017 1:03 Other cirrhosis of Results for this PM [employer]MING C[employer]ACHINE liver procedure are in the results section. [id number]-6-[id number]\\, AP Routine 11/06/2017 1:03 Other cirrhosis of Results for this SERUM PM [employer]ACH[employer] liver procedure are in the results section. FERRITIN Routine 11/06/2017 1:03 Other cirrhosis of Results for this PM [employer] liver procedure are in the results section. IRON, TIBC, % SAT. Routine 11/06/2017 1:03 Other cirrhosis of Results for this (WITHOUT FERRITIN) PM [employer]ACH[employer] liver procedure are in the results section. HEPATITIS C ANTIBODY Routine 11/06/2017 1:03 Other cirrhosis of Results for this PM [employer] liver procedure are in Immunity status the results testing section. HEPATITIS B CORE Routine 11/06/2017 1:03 Other cirrhosis of Results for this ANTIBODY, TOTAL PM [employer] liver procedure are in Immunity status the results testing section. HEPATITIS B SURFACE Routine 11/06/2017 1:03 Other cirrhosis of Results for this ANTIBODY PM [employer]ACH[employer] liver procedure are in Immunity status the results testing section. HEPATITIS B SURFACE Routine 11/06/2017 1:03 Other cirrhosis of Results for this ANTIGEN PM [employer]ACHINE liver procedure are in Immunity status the results testing section. HEPATITIS A ANTIBODY, Routine 11/06/2017 1:03 Other cirrhosis of Results for this IGG PM [employer]ACHINE liver procedure are in Immunity status the results testing section. PROTHROMBIN TIME/INR Routine 11/06/2017 1:03 Other cirrhosis of Results for this PM [employer]ACH[employer] liver procedure are in the results section. CBC W/PLT COUNT & AUTO Routine 11/06/2017 1:03 Other cirrhosis of Results for this DIFFERENTIAL PM [employer] liver procedure are in the results section. BILIRUBIN, DIRECT Routine 11/06/2017 1:03 Other cirrhosis of Results for this PM [employer]ACHINE liver procedure are in the results section. COMPREHENSIVE Routine 11/06/2017 1:03 Other cirrhosis of Results for this METABOLIC PANEL PM [employer]ACH[employer] liver procedure are in the results section. POCT-GLUCOSE METER Routine 07/29/2017 2:55 Results for this PM CDT procedure are in the results section. POCT-GLUCOSE METER Routine 07/29/2017 6:08 Results for this AM CDT procedure are in the results section. CBC W/PLT COUNT & AUTO Routine 07/29/2017 5:21 Results for this DIFFERENTIAL AM CDT procedure are in the results section. D-DIMER MARY 07/29/2017 5:21 Results for this AM CDT procedure are in the results section. CBC W/PLT COUNT & AUTO Routine 07/29/2017 5:21 Results for this DIFFERENTIAL AM CDT procedure are in the results section. POCT-GLUCOSE METER Routine 07/28/2017 8:34 Results for this PM CDT procedure are in the results section. POCT-GLUCOSE METER Routine 07/28/2017 4:29 Results for this PM CDT procedure are in the results section. CBC W/PLT COUNT & AUTO Routine 07/28/2017 1:56 Results for this DIFFERENTIAL PM CDT procedure are in the results section. MAGNESIUM Routine 07/28/2017 1:56 Results for this PM CDT procedure are in the results section. BASIC METABOLIC PANEL Routine 07/28/2017 1:56 Results for this (7) PM CDT procedure are in the results section. CBC W/PLT COUNT & AUTO Routine 07/28/2017 1:56 Results for this DIFFERENTIAL PM CDT procedure are in the results section. POCT-GLUCOSE METER Routine 07/28/2017 1:04 Results for this PM CDT procedure are in the results section. STOOL PATH CHARGE Routine 07/27/2017 12:11 Results for this PM CDT procedure are in the results section. SHIGA TOXIN SCREEN Routine 07/27/2017 12:11 Results for this PM CDT procedure are in the results section. OVA AND PARASITE Routine 07/27/2017 12:11 Results for this EXAMINATION PM CDT procedure are in the results section. STOOL CULTURE + SHIGA Routine 07/27/2017 12:11 Results for this TOXIN PM CDT procedure are in the results section. CBC W/PLT COUNT & AUTO Routine 07/27/2017 5:54 Results for this DIFFERENTIAL AM CDT procedure are in the results section. MAGNESIUM Routine 07/27/2017 5:54 Results for this AM CDT procedure are in the results section. LIPASE Routine 07/27/2017 5:54 Results for this AM CDT procedure are in the results section. AMYLASE Routine 07/27/2017 5:54 Results for this AM CDT procedure are in the results section. HEMOGLOBIN A1C Routine 07/27/2017 5:54 Results for this AM CDT procedure are in the results section. LIPID PANEL Routine 07/27/2017 5:54 Results for this AM CDT procedure are in the results section. COMPREHENSIVE Routine 07/27/2017 5:54 Results for this METABOLIC PANEL AM CDT procedure are in the results section. CBC W/PLT COUNT & AUTO Routine 07/27/2017 5:54 Results for this DIFFERENTIAL AM CDT procedure are in the results section. after 07/23/2017 Results CBC with platelet count + automated diff (06/15/2018 2:14 PM CDT)Only the most recent of5 resultswithin the time period is included. WBC 5.5 3.5 - 10.5 K/L [facility] RBC 4.68 4.63 - 6.08 M/L [facility] Hemoglobin 15.4 13.7 - 17.5 GM/DL [facility] Hematocrit 45.1 40.1 - 51.0 % [facility] MCV 96.4 (H) 79.0 - 92.2 fL [facility] MCH 32.9 (H) 25.7 - 32.2 pg [facility] MCHC 34.1 32.3 - 36.5 GM/DL [facility] RDW 15.2 (H) 11.6 - 14.4 % [facility] Platelets 119 (L) 150 - 450 K/CU MM [facility] MPV 10.1 9.4 - 12.4 fL [facility] nRBC 0 0 - 0 /100 WBC [facility] % Neutros 49 % [facility] % Lymphs 33 % [facility] % Monos 11 % [facility] % Eos 6 % [facility] % Baso 1 % [facility] # Neutros 2.65 1.78 - 5.38 K/L [facility] # Lymphs 1.79 1.32 - 3.57 K/L [facility] # Monos 0.62 0.30 - 0.82 K/L [facility] # Eos 0.35 0.04 - 0.54 K/L [facility] # Baso 0.03 0.01 - 0.08 K/L [facility] Immature Granulocytes-Relative 0 0 - 1 % [facility] Specimen Blood Performing Organization Address City/State/Zipcode Phone Number [address] [address] CENTER Alpha fetoprotein (AFP), tumor marker (06/15/2018 2:14 PM CDT)Only the most recent of2 resultswithin the time period is included. Alpha-Fetoprotein <2.0 <10.0 ng/mL [facility] Specimen Blood Performing Organization Address City/State/Zipcode Phone Number [address] [address] C[place] Pro-time/INR (06/15/2018 2:14 PM CDT)Only the most recent of2 resultswithin the time period is included. Protime 15.9 (H) 11.7 - 14.7 seconds [facility] INR 1.3 <=5.9 [facility] Specimen Blood Narrative Performed At [facility] RECOMMENDED COUMADIN/WARFARIN INR THERAPY RANGES STANDARD DOSE: 2.0 - 3.0 Includes: PROPHYLAXIS for venous thrombosis, systemic embolization; TREATMENT for venous thrombosis and/or pulmonary embolus. HIGH RISK: Target INR is 2.5-3.5 for patients with mechanical heart valves. Performing Organization Address [facility] Phone Number [address] [address] [place] Hepatic function panel (06/15/2018 2:14 PM CDT) Protein, Total 7.2 6.0 - 8.3 gm/dL [facility] Albumin 3.8 3.5 - 5.0 g/dL [facility] Total Bilirubin 1.3 (H) 0.2 - 1.2 mg/dL [facility] Bilirubin, Direct 0.4 0.1 - 0.5 mg/dL [facility] Alkaline Phosphatase 86 40 - 150 U/L [facility] AST 47 (H) 5 - 34 U/L [facility] ALT 43 6 - 55 U/L [facility] Specimen Blood Performing Organization Address City/[facility] Cent[facility] Phone Number [address] [address] [place] Basic Metabolic Panel (06/15/2018 2:14 PM CDT)Only the most recent of2 resultswithin the time period is included. Sodium 139 136 - 145 meq/L [facility] Potassium 3.9 3.5 - 5.1 meq/L [facility] Chloride 106 98 - 107 meq/L [facility] CO2 25 22 - 29 meq/L [facility] BUN 14 7 - 21 mg/dL [facility] Creatinine 0.72 0.57 - 1.25 mg/dL [facility] Glucose 157 (H) 70 - 105 mg/dL [facility] Calcium 9.6 8.4 - 10.2 mg/dL [facility] EGFR 110Comment: ESTIMATED GFR IS mL/min/1.73 sq m [facility] NOT ACCURATE CREATININE [facility] CLEARANCE IN PREDICTING GLOMERULAR FILTRATION RATE. ESTIMATED GFR IS NOT APPLICABLE FOR DIALYSIS PATIENTS. Specimen Blood Performing Organization Address City/State/Zipcode Phone Number [facility] [address] [place] [address] [phone] [place] [address] abdomen with/without contrast (12/05/2017 10:35 AM CDT) Narrative Performed At FINAL REPORT JRD Communication HISTORY : cirrhosis with PVT/SMV partial thrombosis [...] MD Report Verified Date/Time:12/05/2017 10:58:51 Reading Location: [facility] Diagnostic Imaging Reading Room - [place] [address] Procedure Note Interface, External Ris In - [...] Report Verified Date/Time: 12/05/2017 10:58:51 Reading Location: [facility] Diagnostic Imaging Reading Room - [place] [address] Performing Organization Address [facility] Cent[facility]ode Phone Number GE RIS POC-Creatinine (12/05/2017 10:20 AM CDT) POC-Creatinine 0.7Comment: TESTED AT 0.6 - 1.3 mg/dL [facility] BSC-KG [address] [facility] [address] POC-EGFR 113 mL/min/1.73M2 [facility] Specimen Blood Narrative Performed At Performing Organization Address City/[facility]/Zipcode Phone Number [address] [address] C[place] Hepatitis A antibody, IgG (11/06/2017 1:03 PM TRIMMING [employer] MACHINE) Hep A IgG Nonreactive Nonreactive [facility] Specimen Blood Performing Organization Address [facility]/Zipcode Phone Number [place] [phone] [place] [address] CENTER Mitochondrial Antibodies, M2 (11/06/2017 1:03 PM TRIMMING CUTTER MACHINE) Mitochondria M2 Ab <20.0 See Note: U [facility] Comment: Reference Range: NEGATIVE:< OR=20.0 EQUIVOCAL: 20.1-24.9 POSITIVE:> OR=25.0 Specimen Blood Narrative Performed At [facility] [employer] [facility] [employer] [address] Geovanna Rey MD, PhD Performing Organization Address [facility] [place] [address] [address] [place] [address] Iron, TIBC, % sat. (without ferritin) (11/06/2017 1:03 PM TRIMM[employer] MACHINE) Iron 66 40 - 160 ug/dL [facility] TIBC 300 250 - 450 ug/dL [facility] Iron % Saturation 22 20 - 55 % [facility] Specimen Blood Performing Organization Address [facility] Phone Number [address] [address] CENTER Hepatitis C antibody (11/06/2017 1:03 PM TRIMM[employer] C[employer] MACHINE) Hepatitis C Ab Nonreactive [facility] Specimen Blood Performing Organization Address [facility] Phone Number [address] [address] [phone] CENTER Actin (Smooth Muscle) Antibody, IgG (11/06/2017 1:03 PM TRIMMING C[employer] MACHINE) Anti-Smooth Muscle Ab <20 See Note: U [employer] [facility] Comment: INC[facility]PORATED Reference Range: <20 NEGATIVE > OR=20 POSITIVE [...] closely correlated with AIH type 1. Specimen Blood Narrative Performed At [facility] [employer] [facility] [employer] [address] [address] Geovanna Rey MD, PhD Performing Organization Address City/[facility]/Zipcode Phone Number [facility] [place] [address] [facility]OR[facility]ATED [address] [facility] [id number] (11/06/2017 1:03 PM TRIMMING C[employer]TER MACHINE) A-1 Antitrypsin 136.30Comment: Specimen 90.00 - 200.00 mg/dL [facility] slightly hemolyzed [facility] Specimen Blood Performing Organization Address City/[facility]/Zipcode Phone Number [address] [address] [phone] [place] ROBERT Titer & Pattern (11/06/2017 1:03 PM TRIMMING CUTTER MACHINE) ROBERT Titer 1:160 [facility] ROBERT Pattern Homogeneous [facility] Specimen Blood Performing Organization Address [facility] Centercode Phone Number [address] [address] CENTER Ceruloplasmin (11/06/2017 1:03 PM TRIMMING CUTTER MACHINE) Ceruloplasmin 25 18 - 36 mg/dL [facility] Comment: Adults:Males: 18-36 mg/dL Females: 18-53 mg/dL Pediatrics:Males (mg/dL)Females (mg/dL) 0-30 Days 8-25 3-28 31 Days-11 Month 15-43 1-3 [id number] 4-6 [id number] 7-9 [id number] 10-12 [id number] 13-15 [id number] 16-18 [id number] The pediatric ranges are derived from the following criteria: Enrique GREENE, Opal KEE, Fadia Austin et al Pediatric reference ranges for [id number] and ceruloplasmin. Clin. Chem 1997; 43:S1999 Pediatric Reference Ranges, 2nd., [place] Enriqueet al. editors. [employer], [place], [place] 1997. Specimen Blood Narrative Performed At Performing Lab [facility] *[facility], [address] [place] [address] Geovanna Rey MD, PhD Performing Organization Address City/State/Zipcode Phone Number [facility], [place] [address] [facility]ORPORATED [address] [facility] Hepatitis B core antibody, total (11/06/2017 1:03 PM TRIMMING CUTTER MACHINE) Hep B Core Total Ab Nonreactive [facility] Specimen Blood Performing Organization Address [facility] Cent[facility]ode Phone Number [address] [phone] CENTER Hepatitis B surface antibody (11/06/2017 1:03 PM TRIMMING C[employer]TER MACHINE) Hep B S Ab <8.0 <8.0 mIU/mL [facility] Specimen Blood Performing Organization Address [facility] Cent[facility]ode Phone Number [address] [phone] CENTER Hepatitis B surface antigen (11/06/2017 1:03 PM TRIMMING C[employer]TER MACHINE) hepatitis B Surface Ag Nonreactive [facility] Specimen Blood Performing Organization Address [facility] Centercode Phone Number [address] [id number] CENTER Anti-Nuclear Antibody (ROBERT) (11/06/2017 1:03 PM TRIMMING CUTTER MACHINE) ROBERT Positive (A) Negative [facility] Specimen Blood Performing Organization Address City/[facility]/Zipcode Phone Number [address] [phone] CENTER Ferritin (11/06/2017 1:03 PM TRIMMING CUTTER MACHINE) Ferritin 38 5 - 275 ng/mL [facility] Specimen Blood Performing Organization Address [facility]/Zipcode Phone Number [address] [address] CENTER Bilirubin, direct (11/06/2017 1:03 PM TRIMMING CUTTER MACHINE) Bilirubin, Direct 0.4Comment: Specimen 0.1 - 0.5 mg/dL [facility] [place] Specimen Blood Performing Organization Address City/State/Zipcode Phone Number [facility] [address] [place] [address] [place] Comprehensive Metabolic Panel (11/06/2017 1:03 PM TRIMMING CUTTER MACHINE)Only the most recent of2 resultswithin the time period is included. Protein, Total 7.2Comment: Specimen 6.0 - 8.3 gm/dL [facility] slightly hemolyzed [facility] Albumin 3.6Comment: Specimen 3.5 - 5.0 g/dL [facility] Alkaline Phosphatase 108 40 - 150 U/L [facility] Total Bilirubin 1.2Comment: Specimen 0.2 - 1.2 mg/dL [facility] slightly hemolyzed [facility] Sodium 139 136 - 145 meq/L [facility] Potassium 4.1Comment: Specimen 3.5 - 5.1 meq/L [facility] hemolyzed [facility] Chloride 104 98 - 107 meq/L [facility] CO2 23 22 - 29 meq/L [facility] BUN 13 7 - 21 mg/dL [facility] Creatinine 0.71Comment: Specimen 0.57 - 1.25 mg/dL [facility] slightly hemolyzed [facility] Glucose 115 (H) 70 - 105 mg/dL [facility] Calcium 9.0 8.4 - 10.2 mg/dL [facility] AST 51 (H)Comment: Specimen 5 - 34 U/L [facility] slightly hemolyzed [facility] ALT 53Comment: Specimen 6 - 55 U/L [facility] hemolyzed [facility] EGFR 112Comment: ESTIMATED mL/min/1.73 sq m [facility] GFR IS NOT ACCURATE [facility] CREATININE CLEARANCE IN PREDICTING GLOMERULAR FILTRATION RATE. ESTIMATED GFR IS NOT APPLICABLE FOR DIALYSIS PATIENTS. Specimen Blood Performing Organization Address City/State/Zipcode Phone Number [address] [phone] CENTER POC-Glucose meter (07/29/2017 2:55 PM CDT)Only the most recent of5 resultswithin the time period is included. POC-Glucose Meter 223 (H)Comment: TESTED AT 70 - 110 mg/dL [facility] [address] [place] [id number] Specimen Blood Performing Organization Address [facility] Cent[facility]ode Phone Number [address] [phone] CENTER D-dimer (07/29/2017 5:21 AM CDT) D-Dimer, Quant 2.32 (H) <0.50 MG/L FEU [facility] Specimen Blood - Arm, Right Narrative Performed At [facility] REGARDING D-DIMER RESULTS: The 98% NPV (Negative Predictive Value) for DVT/PE exclusion is 0.50 mg/L [facility] as suggested by the assistant professor of education and as approved by the FDA. Performing Organization Address [facility] Phone Number [facility] [address] [place] [address] [phone] Magnesium (07/28/2017 1:56 PM CDT)Only the most recent of2 resultswithin the time period is included. Magnesium 2.4 1.5 - 3.0 mg/dL [facility] Specimen Blood Performing Organization Address [facility] Phone Number [facility] [address] [place] [address] [phone] STOOL PATH CHARGE (07/27/2017 12:11 PM CDT) Pathogen exam charged Done [facility] Specimen Stool - Per Rectum Performing Organization Address [facility] Phone Number [facility] [address] [place] [phone] Shiga Toxin Screen (07/27/2017 12:11 PM CDT) Shiga toxin 1 Not detected Not detected [facility] Shiga toxin 2 Not detected Not detected [facility] Specimen Stool - Per Rectum Performing Organization Address [facility] Cent[facility]ode Phone Number [facility] [address] [place] [phone] Ova and Parasite Examination (07/27/2017 12:11 PM CDT) O&P Direct Smear No ova or parasites No ova or parasites [facility] seen seen [facility] O&P Concentrate Smear No ova or parasites No ova or parasites [facility] seen seen [facility] O&P Trichrome Smear No ova or parasites No ova or parasites [facility] seen seen [facility] Specimen Stool - Stool Narrative Performed At Performing Organization Address City/[facility] Phone Number [address] [address] CENTER Stool culture + Shiga toxin (07/27/2017 12:11 PM CDT) Result No Salmonella, Shigella or Campylobacter [facility] isolated Specimen Stool - Per Rectum Performing Organization Address [facility] Phone Number [address] [address] Lipase (07/27/2017 5:54 AM CDT) Lipase 16 6 - 51 U/L [facility] Specimen Blood Narrative Performed At [facility] Specimen slightly icteric Performing Organization Address [facility] Centercode Phone Number [facility] [address] [place] [phone] Hemoglobin A1c (07/27/2017 5:54 AM CDT) Hemoglobin A1C 8.1 (H) 4.3 - 6.1 % [facility] Specimen Blood Performing Organization Address [facility] Phone Number [facility] [address] [place] [phone] Amylase (07/27/2017 5:54 AM CDT) Amylase 76 30 - 110 U/L [facility] Specimen Blood Narrative Performed At [facility] Specimen slightly icteric Performing Organization Address City/[facility] Centercode Phone Number [facility] [address] [place] [address] [phone] Lipid panel (07/27/2017 5:54 AM CDT) Triglycerides 134 mg/dL [facility] Cholesterol 131 mg/dL [facility] HDL 25 mg/dL [facility] LDL Calculated 79 mg/dL [facility] Specimen Blood Narrative Performed At [facility] Triglyceride Reference Range: Low Risk <150 [id number] High Risk 200-499 Very High Risk>=500 Cholesterol Reference Range: Low Risk <200 [id number] High Risk>240 HDL Cholesterol Reference Range: Low Risk >=60 High Risk <40 LDL Cholesterol Reference Range: Optimal<100 Near [id number] Very High >=190 Specimen slightly icteric Performing Organization Address City/[facility] Centercode Phone Number [facility] [address] [place] [address] after 07/23/2017 Insurance Payer Benefit Plan / Group Subscriber ID Type Phone Address MEDICARE MEDICARE A B xxxxxxxxxxx Medicare MCR SUPPLEMENT/INDIVIDUAL AARP/[facility] xxxxxxxxxxx [facility] Advance Directives For more information, please contact:[address] [phone] Code Status Date Activated Date Inactivated Comments Full Code 07/27/2017 1:10 AM 07/29/2017 5:41 PM This code status was determined by: Patient
--- OUTSIDE RECORDS SUMMARY | 2018-07-24 09:29 | XMS REPORT ---
:1950 [facility] Organization [facility] Address [facility] Diomedes Hearn [address] [place] [id number] Care Team Providers Name Role Phone HÉCTOR, [...] Value Reference Range Comments ALPHA-FETOPROTEIN (BEAKER) (test xmxo=6548) < ng/mL <10.0 HEPATIC FUNCTION [id number] 15:25:00 Test Item Value Reference Range Comments TOTAL PROTEIN (BEAKER) (test suoa=303) 7.2 gm/dL 6.0-8.3 ALBUMIN (BEAKER) (test fwbk=1858) 3.8 g/dL 3.5-5.0 BILIRUBIN TOTAL (BEAKER) (test lfsf=763) 1.3 mg/dL 0.2-1.2 BILIRUBIN DIRECT (BEAKER) (test knui=281) 0.4 mg/dL 0.1-0.5 ALKALINE PHOSPHATASE (BEAKER) (test amqk=519) 86 U/L 40-150 AST (SGOT) (BEAKER) (test hbka=294) 47 U/L 5-34 ALT (SGPT) (BEAKER) (test busk=391) 43 U/L 6-55 BASIC METABOLIC [id number] 15:25:00 Test Item Value Reference Range Comments SODIUM (BEAKER) (test 139 meq/L 136-145 smqo=444) POTASSIUM (BEAKER) (test 3.9 meq/L 3.5-5.1 njfr=799) CHLORIDE (BEAKER) (test 106 meq/L 98-107 tzgc=709) CO2 (BEAKER) (test 25 meq/L 22-29 wzxg=493) BLOOD UREA NITROGEN 14 mg/dL 7-21 (BEAKER) (test clfu=617) CREATININE (BEAKER) (test 0.72 mg/dL 0.57-1.25 amrk=738) GLUCOSE RANDOM (BEAKER) 157 mg/dL 70-105 (test jvnn=888) CALCIUM (BEAKER) (test 9.6 mg/dL 8.4-10.2 uast=586) EGFR (BEAKER) (test 110 mL/min/1.73 sq m ESTIMATED GFR IS NOT dkvj=3647) ACCURATE CREATININE CLEARANCE IN PREDICTING GLOMERULAR FILTRATION RATE. ESTIMATED GFR IS NOT APPLICABLE FOR DIALYSIS PATIENTS. PROTHROMBIN [id number] 15:16:00 Test Item Value Reference Range Comments PROTIME (BEAKER) (test ohhk=106) 15.9 seconds 11.7-14.7 INR (BEAKER) (test pjpg=678) 1.3 <=5.9 RECOMMENDED COUMADIN/WARFARIN INR THERAPY RANGESSTANDARD DOSE: 2.0 - 3.0 Includes: PROPHYLAXIS forvenous thrombosis, systemic embolization; TREATMENT for venous thrombosis and/or pulmonary embolus.HIGH RISK: Target INR is 2.5-3.5 for patients with mechanical heart valves.CBC W/PLT COUNT & AUTO [id number] 15:05:00 Test Item Value Reference Range Comments WHITE BLOOD CELL COUNT (BEAKER) (test wkwc=346) 5.5 K/ L 3.5-10.5 RED BLOOD CELL COUNT (BEAKER) (test axyi=180) 4.68 M/ L 4.63-6.08 HEMOGLOBIN (BEAKER) (test kmef=049) 15.4 GM/DL 13.7-17.5 HEMATOCRIT (BEAKER) (test ikss=181) 45.1 % 40.1-51.0 MEAN CORPUSCULAR VOLUME (BEAKER) (test aqwk=469) 96.4 fL 79.0-92.2 MEAN CORPUSCULAR HEMOGLOBIN (BEAKER) (test 32.9 pg 25.7-32.2 gnzb=218) MEAN CORPUSCULAR HEMOGLOBIN CONC (BEAKER) (test 34.1 GM/DL 32.3-36.5 juok=661) RED CELL DISTRIBUTION WIDTH (BEAKER) (test 15.2 % 11.6-14.4 uwdo=930) PLATELET COUNT (BEAKER) (test ijyt=600) 119 K/CU MM 150-450 MEAN PLATELET VOLUME (BEAKER) (test wocu=945) 10.1 fL 9.4-12.4 NUCLEATED RED BLOOD CELLS (BEAKER) (test 0 /100 WBC 0-0 tjqo=849) NEUTROPHILS RELATIVE PERCENT (BEAKER) (test 49 % cixb=961) LYMPHOCYTES RELATIVE PERCENT (BEAKER) (test 33 % yujb=098) MONOCYTES RELATIVE PERCENT (BEAKER) (test 11 % pbre=260) EOSINOPHILS RELATIVE PERCENT (BEAKER) (test 6 % qwzz=228) BASOPHILS RELATIVE PERCENT (BEAKER) (test 1 % dgyz=220) NEUTROPHILS ABSOLUTE COUNT (BEAKER) (test 2.65 K/ L 1.78-5.38 wrds=206) LYMPHOCYTES ABSOLUTE COUNT (BEAKER) (test 1.79 K/ L 1.32-3.57 deyb=664) MONOCYTES ABSOLUTE COUNT (BEAKER) (test 0.62 K/ L 0.30-0.82 adgg=681) EOSINOPHILS ABSOLUTE COUNT (BEAKER) (test 0.35 K/ L 0.04-0.54 pktd=711) BASOPHILS ABSOLUTE COUNT (BEAKER) (test 0.03 K/ L 0.01-0.08 bdkw=019) IMMATURE GRANULOCYTES-RELATIVE PERCENT (BEAKER) 0 % 0-1 (test fmgt=5146) CT, ABDOMEN, [id number] 10:58:00Referring: Warren Acosta, DO cirrhosis with PVT/SMV [...] Marieort Verified Date/Time: 12/05/2017 10:58:51 Reading Location: [facility] Diagnostic Imaging Reading Room - [place] [address] POCT- [id number] 10:25:00 Test Item Value Reference Range Comments POC-CREATININE (GIUSEPPE) 0.7 mg/dL 0.6-1.3 TESTED AT [facility]242 (test bolz=5200) [facility] [address] POC-EGFR ([place]) (test 113 mL/min/1.73M2 toeh=1962) ANTI-NUCLEAR ANTIBODY (ROBERT)2017-11-07 10:41:00 Test Item Value Reference Range Comments ANTI-NUCLEAR ANTIBODY (ROBERT) (DocDep) (test Positive Negative qgfi=242) ROBERT TITER AND [id number] 10:41:00 Test Item Value Reference Range Comments ROBERT TITER (BEAKER) (test tydf=0452) :160 ROBERT PATTERN (BEAKER) (test liov=3723) Homogeneous HEPATITIS B SURFACE [id number] 16:31:00 Test Item Value Reference Range Comments HEPATITIS B SURFACE ANTIBODY (BEAKER) (test < mIU/mL <8.0 nrtb=216) HEPATITIS A ANTIBODY, [id number] 16:30:00 Test Item Value Reference Range Comments HEPATITIS A IGG ANTIBODY (BEAKER) (test Nonreactive Nonreactive pkah=0510) HEPATITIS B CORE ANTIBODY, [id number] 15:46:00 Test Item Value Reference Range Comments HEPATITIS B CORE TOTAL ANTIBODY (BEAKER) (test Nonreactive Nonreactive rgwp=567) ALPHA FETOPROTEIN (AFP), TUMOR [id number] 15:41:00 Test Item Value Reference Range Comments ALPHA-FETOPROTEIN (BEAKER) (test hwhp=9189) < ng/mL <10.0 [id number] 15:36:00 Test Item Value Reference Range Comments FERRITIN (BEAKER) (test ondx=036) 38 ng/mL 5-275 HEPATITIS B SURFACE [id number] 15:30:00 Test Item Value Reference Range Comments HEPATITIS B SURFACE ANTIGEN (2) (BEAKER) (test Nonreactive Nonreactive bpne=5045) HEPATITIS C [id number] 15:30:00 Test Item Value Reference Range Comments HEPATITIS C ANTIBODY (BEAKER) (test vwcl=347) Nonreactive Nonreactive IRON, TIBC, % SAT. (WITHOUT FERRITIN)2017-11-06 15:26:00 Test Item Value Reference Range Comments IRON (BEAKER) (test ralk=062) 66 ug/dL 40-160 TOTAL IRON BINDING CAPACITY (BEAKER) (test 300 ug/dL 250-450 nvfg=912) IRON % SATURATION (2) (BEAKER) (test zpjc=2466) 22 % 20-55 COMPREHENSIVE METABOLIC [id number] 15:24:00 Test Item Value Reference Range Comments TOTAL PROTEIN (BEAKER) 7.2 gm/dL 6.0-8.3 Specimen slightly (test pbxc=293) hemolyzed ALBUMIN (BEAKER) (test 3.6 g/dL 3.5-5.0 Specimen slightly vegb=6100) hemolyzed ALKALINE PHOSPHATASE 108 U/L 40-150 (BEAKER) (test inkc=460) BILIRUBIN TOTAL (BEAKER) 1.2 mg/dL 0.2-1.2 Specimen slightly (test ucqm=326) hemolyzed SODIUM (BEAKER) (test 139 meq/L 136-145 qzse=921) POTASSIUM (BEAKER) (test 4.1 meq/L 3.5-5.1 Specimen slightly esyg=058) hemolyzed CHLORIDE (BEAKER) (test 104 meq/L 98-107 vivv=864) CO2 (BEAKER) (test 23 meq/L 22-29 wbqs=564) BLOOD UREA NITROGEN 13 mg/dL 7-21 (BEAKER) (test wegu=186) CREATININE (BEAKER) (test 0.71 mg/dL 0.57-1.25 Specimen slightly mrja=570) hemolyzed GLUCOSE RANDOM (BEAKER) 115 mg/dL 70-105 (test udge=411) CALCIUM (BEAKER) (test 9.0 mg/dL 8.4-10.2 barw=291) AST (SGOT) (BEAKER) (test 51 U/L 5-34 Specimen slightly bxot=256) hemolyzed ALT (SGPT) (BEAKER) (test 53 U/L 6-55 Specimen slightly gjuu=420) hemolyzed EGFR (BEAKER) (test 112 mL/min/1.73 sq ESTIMATED GFR IS NOT ytuc=8802) m ACCURATE CREATININE CLEARANCE IN PREDICTING GLOMERULAR FILTRATION RATE. ESTIMATED GFR IS NOT APPLICABLE FOR DIALYSIS PATIENTS. BILIRUBIN, [id number] 15:24:00 Test Item Value Reference Range Comments BILIRUBIN DIRECT (BEAKER) (test 0.4 mg/dL 0.1-0.5 Specimen slightly hemolyzed peye=086) [id number] 15:15:00 Test Item Value Reference Range Comments ALPHA-1 ANTITRYPSIN (BEAKER) 136.30 mg/dL 90.00-200.00 Specimen slightly hemolyzed (test xypf=601) PROTHROMBIN [id number] 14:53:00 Test Item Value Reference Range Comments PROTIME (BEAKER) (test iiyt=432) 16.7 seconds 11.7-14.7 INR (BEAKER) (test sblv=858) 1.4 <=5.9 RECOMMENDED COUMADIN/WARFARIN INR THERAPY RANGESSTANDARD DOSE: 2.0 - 3.0 Includes: PROPHYLAXIS forvenous thrombosis, systemic embolization; TREATMENT for venous thrombosis and/or pulmonary embolus.HIGH RISK: Target INR is 2.5-3.5 for patients with mechanical heart valves.CBC W/PLT COUNT & AUTO [id number] 14:43:00 Test Item Value Reference Range Comments WHITE BLOOD CELL COUNT (BEAKER) (test cgee=986) 4.5 K/ L 3.5-10.5 RED BLOOD CELL COUNT (BEAKER) (test igkh=044) 4.54 M/ L 4.63-6.08 HEMOGLOBIN (BEAKER) (test osst=191) 14.9 GM/DL 13.7-17.5 HEMATOCRIT (BEAKER) (test anlp=297) 44.0 % 40.1-51.0 MEAN CORPUSCULAR VOLUME (BEAKER) (test uotq=233) 96.9 fL 79.0-92.2 MEAN CORPUSCULAR HEMOGLOBIN (BEAKER) (test 32.8 pg 25.7-32.2 kfif=405) MEAN CORPUSCULAR HEMOGLOBIN CONC (BEAKER) (test 33.9 GM/DL 32.3-36.5 ngxf=483) RED CELL DISTRIBUTION WIDTH (BEAKER) (test 14.0 % 11.6-14.4 lktz=954) PLATELET COUNT (BEAKER) (test ynky=867) 115 K/CU MM 150-450 MEAN PLATELET VOLUME (BEAKER) (test llmm=997) 10.8 fL 9.4-12.4 NUCLEATED RED BLOOD CELLS (BEAKER) (test 0 /100 WBC 0-0 dtso=159) NEUTROPHILS RELATIVE PERCENT (BEAKER) (test 52 % ysxu=844) LYMPHOCYTES RELATIVE PERCENT (BEAKER) (test 32 % bcbv=449) MONOCYTES RELATIVE PERCENT (BEAKER) (test 10 % plzc=486) EOSINOPHILS RELATIVE PERCENT (BEAKER) (test 4 % knwz=851) BASOPHILS RELATIVE PERCENT (BEAKER) (test 1 % xzjw=997) NEUTROPHILS ABSOLUTE COUNT (BEAKER) (test 2.35 K/ L 1.78-5.38 cqes=715) LYMPHOCYTES ABSOLUTE COUNT (BEAKER) (test 1.45 K/ L 1.32-3.57 xbly=266) MONOCYTES ABSOLUTE COUNT (BEAKER) (test 0.46 K/ L 0.30-0.82 mbus=870) EOSINOPHILS ABSOLUTE COUNT (BEAKER) (test 0.20 K/ L 0.04-0.54 akfz=616) BASOPHILS ABSOLUTE COUNT (BEAKER) (test 0.03 K/ L 0.01-0.08 mekq=365) IMMATURE GRANULOCYTES-RELATIVE PERCENT (BEAKER) 1 % 0-1 (test ahgo=9836) GLUCOMETER GLUCOSE- LAB USE [id number] 10:45:00 Test Item Value Reference Range Comments GLUCOMETER (test code=GMG) 115 mg/dL 70-100 OVA AND PARASITE [id number] 14:14:00 Test Item Value Reference Range Comments DIRECT SMEAR - O\T\P No ova or parasites seen No ova or parasites seen (BEAKER) (test incg=758) CONCENTRATE SMEAR - O\T\P No ova or parasites seen No ova or parasites seen (BEAKER) (test rouw=103) TRICHROME SMEAR - O\T\P No ova or parasites seen No ova or parasites seen (BEAKER) (test wbgq=193) STOOL CULTURE + SHIGA [id number] 10:33:00 Test Item Value Reference Range Comments CULTURE (BEAKER) (test No Salmonella, Shigella or erbu=9481) Campylobacter isolated POCT-GLUCOSE [id number] 14:56:00 Test Item Value Reference Range Comments POC-GLUCOSE METER (BEAKER) 223 mg/dL 70-110 TESTED AT [address] (test pnxo=1814) [facility] [address] [id number] 06:26:00 Test Item Value Reference Range Comments D-DIMER QUANTITATIVE (BEAKER) (test kwcw=910) 2.32 MG/L FEU <0.50 REGARDING D-DIMER RESULTS: The 98% NPV (Negative Predictive Value) for DVT/PE exclusion is 0.50 mg/LFEU as suggested by the color expert and as approved by the FDA.POCT-GLUCOSE [id number] 06:11:00 Test Item Value Reference Range Comments POC-GLUCOSE METER ([facility]) 182 mg/dL 70-110 TESTED AT [address] (test xsud=8667) [facility] [address] CBC W/PLT COUNT & AUTO [id number] 05:42:00 Test Item Value Reference Range Comments WHITE BLOOD CELL COUNT (BEAKER) (test rraf=107) 3.3 K/ L 4.0-10.0 RED BLOOD CELL COUNT (BEAKER) (test jyda=262) 4.43 M/ L 4.20-5.80 HEMOGLOBIN (BEAKER) (test mwen=207) 14.4 GM/DL 13.0-16.8 HEMATOCRIT (BEAKER) (test qwui=675) 42.1 % 40.0-50.0 MEAN CORPUSCULAR VOLUME (BEAKER) (test ausb=098) 95.0 fL 82.0-98.0 MEAN CORPUSCULAR HEMOGLOBIN (BEAKER) (test 32.4 pg 27.0-33.0 vvzg=102) MEAN CORPUSCULAR HEMOGLOBIN CONC (BEAKER) (test 34.1 GM/DL 32.0-36.0 blsg=348) RED CELL DISTRIBUTION WIDTH (BEAKER) (test 15.3 % 10.3-14.2 mjcs=140) PLATELET COUNT (BEAKER) (test sfjl=584) 112 K/CU MM 150-430 MEAN PLATELET VOLUME (BEAKER) (test palg=451) 8.0 fL 6.5-10.5 NUCLEATED RED BLOOD CELLS (BEAKER) (test 0 /100 WBC 0-0 bbtp=393) NEUTROPHILS RELATIVE PERCENT (BEAKER) (test 47 % fxlf=776) LYMPHOCYTES RELATIVE PERCENT (BEAKER) (test 36 % whpk=996) MONOCYTES RELATIVE PERCENT (BEAKER) (test 11 % nnwr=382) EOSINOPHILS RELATIVE PERCENT (BEAKER) (test 5 % txbf=498) BASOPHILS RELATIVE PERCENT (BEAKER) (test 0 % lyxd=053) NEUTROPHILS ABSOLUTE COUNT (BEAKER) (test 1.50 K/ L 1.80-8.00 gqhn=464) LYMPHOCYTES ABSOLUTE COUNT (BEAKER) (test 1.20 K/ L 1.48-4.50 hrwm=933) MONOCYTES ABSOLUTE COUNT (BEAKER) (test 0.30 K/ L 0.00-1.30 vqxd=399) EOSINOPHILS ABSOLUTE COUNT (BEAKER) (test 0.20 K/ L 0.00-0.50 bwrx=061) BASOPHILS ABSOLUTE COUNT (BEAKER) (test 0.00 K/ L 0.00-0.20 lway=322) POCT-GLUCOSE [id number] 20:40:00 Test Item Value Reference Range Comments POC-GLUCOSE METER (BEAKER) 270 mg/dL 70-110 TESTED AT [address] (test wjel=9629) [facility] [address] POCT-GLUCOSE [id number] 16:31:00 Test Item Value Reference Range Comments POC-GLUCOSE METER (BEAKER) 216 mg/dL 70-110 TESTED AT [address] (test yuue=9346) [facility] [address] SHIGA TOXIN [id number] 14:44:00 Test Item Value Reference Range Comments SHIGA TOXIN 1 (BEAKER) (test cley=7778) Not detected Not detected SHIGA TOXIN 2 (BEAKER) (test ymeb=6177) Not detected Not detected STOOL PATH [id number] 14:44:00 Test Item Value Reference Range Comments PATHOGEN EXAM CHARGED (BEAKER) (test ggzm=0028) Done CBC W/PLT COUNT & AUTO [id number] 14:18:00 Test Item Value Reference Range Comments WHITE BLOOD CELL COUNT (BEAKER) (test fyhy=563) 4.1 K/ L 4.0-10.0 RED BLOOD CELL COUNT (BEAKER) (test vhfj=908) 4.50 M/ L 4.20-5.80 HEMOGLOBIN (BEAKER) (test cfwd=566) 14.9 GM/DL 13.0-16.8 HEMATOCRIT (BEAKER) (test eymk=191) 43.2 % 40.0-50.0 MEAN CORPUSCULAR VOLUME (BEAKER) (test manz=279) 96.1 fL 82.0-98.0 MEAN CORPUSCULAR HEMOGLOBIN (BEAKER) (test 33.1 pg 27.0-33.0 wpud=024) MEAN CORPUSCULAR HEMOGLOBIN CONC (BEAKER) (test 34.4 GM/DL 32.0-36.0 llxr=414) RED CELL DISTRIBUTION WIDTH (BEAKER) (test 15.3 % 10.3-14.2 zidw=474) PLATELET COUNT (BEAKER) (test aevu=178) 115 K/CU MM 150-430 MEAN PLATELET VOLUME (BEAKER) (test zecf=807) 7.8 fL 6.5-10.5 NUCLEATED RED BLOOD CELLS (BEAKER) (test 0 /100 WBC 0-0 zung=293) NEUTROPHILS RELATIVE PERCENT (BEAKER) (test 65 % njvg=662) LYMPHOCYTES RELATIVE PERCENT (BEAKER) (test 26 % uuqq=187) MONOCYTES RELATIVE PERCENT (BEAKER) (test 7 % ydjm=620) EOSINOPHILS RELATIVE PERCENT (BEAKER) (test 3 % rydy=931) BASOPHILS RELATIVE PERCENT (BEAKER) (test 0 % gatu=189) NEUTROPHILS ABSOLUTE COUNT (BEAKER) (test 2.70 K/ L 1.80-8.00 ulrf=664) LYMPHOCYTES ABSOLUTE COUNT (BEAKER) (test 1.10 K/ L 1.48-4.50 qoqo=656) MONOCYTES ABSOLUTE COUNT (BEAKER) (test 0.30 K/ L 0.00-1.30 pwfs=947) EOSINOPHILS ABSOLUTE COUNT (BEAKER) (test 0.10 K/ L 0.00-0.50 boof=523) BASOPHILS ABSOLUTE COUNT (BEAKER) (test 0.00 K/ L 0.00-0.20 vnre=686) BASIC METABOLIC [id number] 14:18:00 Test Item Value Reference Range Comments SODIUM (BEAKER) (test 134 meq/L 135-148 nrrt=729) POTASSIUM (BEAKER) (test 4.1 meq/L 3.6-5.5 hvsj=013) CHLORIDE (BEAKER) (test 103 meq/L 98-106 guul=425) CO2 (BEAKER) (test 21 meq/L 20-29 wmxm=542) BLOOD UREA NITROGEN 12 mg/dL 10-26 (BEAKER) (test gles=549) CREATININE (BEAKER) (test 0.80 mg/dL 0.50-1.20 skki=732) GLUCOSE RANDOM (BEAKER) 293 mg/dL 70-110 (test vgng=048) CALCIUM (BEAKER) (test 9.1 mg/dL 8.5-10.5 iola=478) EGFR (BEAKER) (test 97 mL/min/1.73 sq m ESTIMATED GFR IS NOT wchu=9295) ACCURATE CREATININE CLEARANCE IN PREDICTING GLOMERULAR FILTRATION RATE. ESTIMATED GFR IS NOT APPLICABLE FOR DIALYSIS PATIENTS. [id number] 14:12:00 Test Item Value Reference Range Comments MAGNESIUM (BEAKER) (test omgm=751) 2.4 mg/dL 1.5-3.0 POCT-GLUCOSE [id number] 13:06:00 Test Item Value Reference Range Comments POC-GLUCOSE METER (BEAKER) 247 mg/dL 70-110 TESTED AT [facility] [address] (test fjro=3001) [address] [facility] [address] LIPID [id number] 07:28:00 Test Item Value Reference Range Comments TRIGLYCERIDES (BEAKER) (test gpxv=369) 134 mg/dL CHOLESTEROL (BEAKER) (test onaz=611) 131 mg/dL HDL CHOLESTEROL (BEAKER) (test tmhi=659) 25 mg/dL LDL CHOLESTEROL CALCULATED (BEAKER) (test 79 mg/dL goya=840) Triglyceride Reference Range: Low Risk <150 Borderline 150- 199 High Risk 200-499 Very High Risk >=500Cholesterol Reference Range: Low Risk <200 Borderline 200-239 High Risk > 240HDL Cholesterol Reference Range: Low Risk >=60 High Risk <40LDL Cholesterol Reference Range: Optimal <100 Near Optimal 100-129 Borderline 130-159 High 160-189 Very High >=190 Specimen slightly [id number] 07:17:00 Test Item Value Reference Range Comments LIPASE (BEAKER) (test atye=474) 16 U/L 6-51 Specimen slightly ictericCOMPREHENSIVE METABOLIC [id number] 07:16:00 Test Item Value Reference Range Comments TOTAL PROTEIN (BEAKER) 6.2 gm/dL 6.0-8.5 (test gwzq=929) ALBUMIN (BEAKER) (test 3.2 g/dL 3.5-5.0 bcdu=6230) ALKALINE PHOSPHATASE 61 U/L 30-115 (BEAKER) (test efxc=154) BILIRUBIN TOTAL (BEAKER) 1.9 mg/dL 0.1-1.2 (test zwmo=472) SODIUM (BEAKER) (test 137 meq/L 135-148 zqpm=209) POTASSIUM (BEAKER) (test 3.6 meq/L 3.6-5.5 bewu=553) CHLORIDE (BEAKER) (test 104 meq/L 98-106 oyfh=095) CO2 (BEAKER) (test 23 meq/L 20-29 ftfh=204) BLOOD UREA NITROGEN 10 mg/dL 10-26 (BEAKER) (test ofgr=138) CREATININE (BEAKER) (test 0.70 mg/dL 0.50-1.20 mehk=403) GLUCOSE RANDOM (BEAKER) 126 mg/dL 70-110 (test ohwc=598) CALCIUM (BEAKER) (test 8.6 mg/dL 8.5-10.5 njtk=223) AST (SGOT) (BEAKER) (test 50 U/L 5-40 faqs=755) ALT (SGPT) (BEAKER) (test 39 U/L 5-50 cbxj=974) EGFR (BEAKER) (test 114 mL/min/1.73 sq ESTIMATED GFR IS NOT pcpv=4935) m ACCURATE CREATININE CLEARANCE IN PREDICTING GLOMERULAR FILTRATION RATE. ESTIMATED GFR IS NOT APPLICABLE FOR DIALYSIS PATIENTS. Specimen slightly ictericHEMOGLOBIN [id number] 07:14:00 Test Item Value Reference Range Comments HEMOGLOBIN A1C (BEAKER) (test fkbz=328) 8.1 % 4.3-6.1 [id number] 07:08:00 Test Item Value Reference Range Comments AMYLASE (BEAKER) (test tmay=850) 76 U/L 30-110 Specimen slightly [id number] 07:07:00 Test Item Value Reference Range Comments MAGNESIUM (BEAKER) (test nuhm=204) 1.9 mg/dL 1.5-3.0 CBC W/PLT COUNT & AUTO [id number] 07:01:00 Test Item Value Reference Range Comments WHITE BLOOD CELL COUNT (BEAKER) (test vfxv=071) 3.4 K/ L 4.0-10.0 RED BLOOD CELL COUNT (BEAKER) (test okko=454) 4.29 M/ L 4.20-5.80 HEMOGLOBIN (BEAKER) (test kuxd=895) 13.9 GM/DL 13.0-16.8 HEMATOCRIT (BEAKER) (test emju=644) 40.6 % 40.0-50.0 MEAN CORPUSCULAR VOLUME (BEAKER) (test nlez=381) 94.6 fL 82.0-98.0 MEAN CORPUSCULAR HEMOGLOBIN (BEAKER) (test 32.5 pg 27.0-33.0 vwby=358) MEAN CORPUSCULAR HEMOGLOBIN CONC (BEAKER) (test 34.3 GM/DL 32.0-36.0 kzan=278) RED CELL DISTRIBUTION WIDTH (BEAKER) (test 15.6 % 10.3-14.2 nwiz=320) PLATELET COUNT (BEAKER) (test rklk=946) 99 K/CU MM 150-430 MEAN PLATELET VOLUME (BEAKER) (test yclg=294) 8.0 fL 6.5-10.5 NUCLEATED RED BLOOD CELLS (BEAKER) (test 0 /100 WBC 0-0 whtr=902) NEUTROPHILS RELATIVE PERCENT (BEAKER) (test 49 % mudk=966) LYMPHOCYTES RELATIVE PERCENT (BEAKER) (test 37 % riet=152) MONOCYTES RELATIVE PERCENT (BEAKER) (test 10 % ihhg=641) EOSINOPHILS RELATIVE PERCENT (BEAKER) (test 4 % utbf=169) BASOPHILS RELATIVE PERCENT (BEAKER) (test 0 % flst=521) NEUTROPHILS ABSOLUTE COUNT (BEAKER) (test 1.70 K/ L 1.80-8.00 prgq=271) LYMPHOCYTES ABSOLUTE COUNT (BEAKER) (test 1.30 K/ L 1.48-4.50 pyru=188) MONOCYTES ABSOLUTE COUNT (BEAKER) (test rmrq=344) 0.30 K/ L 0.00-1.30 EOSINOPHILS ABSOLUTE COUNT (BEAKER) (test 0.20 K/ L 0.00-0.50 pxry=402) BASOPHILS ABSOLUTE COUNT (BEAKER) (test aeof=407) 0.00 K/ L 0.00-0.20 GLUCOMETER GLUCOSE- LAB USE [id number] 04:55:00 Test Item Value Reference Range Comments GLUCOMETER (test code=GMG) 139 mg/dL 70-100 GLUCOMETER GLUCOSE- LAB USE [id number] 04:55:00 Test Item Value Reference Range Comments GLUCOMETER (test code=GMG) 163 mg/dL 70-100
--- NOTE | 2018-07-24 11:16 | RAD REPORT ---
EXAM DESCRIPTION: US - Biopsy Lymph Node - 07/24/2018 10:51 am CLINICAL HISTORY: NECK MASS, E04.1 COMPARISON: No comparisons FINDINGS: Preoperative diagnosis: Left thyroid mass.. Post operative diagnosis: Same. Conscious Sedation: None Fluoroscopy time: None Contrast used: None Estimated blood loss: Minimal Specimens:3 x 18 gauge core biopsies The left neck was prepped and draped in the usual sterile fashion. 1% lidocaine was infiltrated into the subcutaneous tissues for local anesthesia. Real time ultrasound scanning of the left neck demonst rated heterogenous large mass in involving the left lobe of the thyroid. Under ultrasound guidance, u sing a 18-gauge, 6 cm long, 2 cm throw core biopsy gun, 3 x 18 gauge specimens were obtained of this lesion and sent to pathology for evaluation. There were no complications. IMPRESSION: Successful ultrasound-guided core biopsy left thyroid/neck mass.
== END ==
LOC: FNA 07-20 09:28
PROVIDERS: ATTEND Otolaryngology
PROC: 0GBG3ZX Excision of Left Thyroid Gland Lobe, Percutaneous Approach, Diagnostic (ICD-10-PCS; principal; 2018-07-24)
DX: E04.1 Nontoxic single thyroid nodule (principal)
CPT/HCPCS: 38505; 76942; 88305